=== PATIENT | female | born 1930 | race Caucasian/White ===

== ENCOUNTER 2016-11-15 12:11 | Inpatient (IN) | payer OTHER, BC ==
[2016-11-15 12:35] VITALS: BMI 32.4
[2016-11-15 12:55] LABS: MCH 29.5 pg (25.7-33.7); MCHC 32.3 g/dl (32.0-36.0); MEAN CELL VOLUME 91.5 fl (80-96); MEAN PLT VOLUME 7.6 fl (7.5-11.1); PLATELET COUNT 280 K/MM3 (134-434); RDW 15.3 % (11.6-15.6); WHITE BLOOD COUNT 17.4 K/mm3 (4.0-10.0)
--- NOTE | 2016-11-15 13:14 | PDOC ---
[id number] No Limitations - History of Present Illness Initial Comments: 11/15/16 13:41 The patient is an 86-year-old female, with a significant past medical history of afib, CHF, HTN, and diabetes mellitus, who was sent to the ED by PCP with shortness of breath today. Pt states that she visited Dr. Diggs today for viral symptoms. Pt reports cough. PCP: Dr. Diggs <Carmelina Jeffries - Last Filed: 11/15/16 13:41> <Donna Fernandez - Last Filed: 11/15/16 20:26> - General Chief Complaint: Shortness of Breath Stated Complaint: SHORTNESS OF BREATH Time Seen by Provider: 11/15/16 13:10 Past History <Carmelina Jeffries - Last Filed: 11/15/16 13:41> - Past Medical History Anemia: No Asthma: No Cancer: No Cardiac Disorders: Yes (atrial fibrillation, ASHD) CVA: Yes (03/2015) COPD: No CHF: Yes Dementia: No Diabetes: Yes (IDDM) GI Disorders: Yes (Diverticulosis, colon polyp, Pancreatic neoplasm) Disorders: No HTN: Yes Hypercholesterolemia: Yes Liver Disease: Yes (Fatty Liver) Suicide Attempt (Hx): No Seizures: No Thyroid Disease: No Other medical history: OP, carpal tunnel, glaucoma, psoriasis, lung mass, - Surgical History Appendectomy: No Cardiac Surgery: No Cholecystectomy: No Lung Surgery: No Neurologic Surgery: No Orthopedic Surgery: No - Immunization History Immunization Up to Date: No - Psycho/Social/Smoking Cessation Hx Anxiety: No Suicidal Ideation: No Smoking History: Never smoked Have you smoked in the past 12 months: No Number of Cigarettes Smoked Daily: 0 Hx Alcohol Use: No Drug/Substance Use Hx: No Substance Use Type: None Hx Substance Use Treatment: No <Donna Fernandez - Last Filed: 11/15/16 20:26> - Past Medical History Allergies/Adverse Reactions: Allergies Allergy/AdvReac Type Severity Reaction Status Date / Time clindamycin Allergy Verified 11/15/16 12:27 Home Medications: Ambulatory Orders Digoxin [Lanoxin -] 0.125 mg PO DAILY 12/12/15 Furosemide [Lasix -] 40 mg PO DAILY 12/12/15 Insulin Glargine,Hum.rec.anlog [Lantus (10mL VIAL) -] 24 units SQ AM 05/10/16 Insulin Lispro [Humalog] 0 unit SQ ASDIR PRN 12/12/15 Labetalol HCl 100 mg PO BID 12/12/15 Losartan Potassium 100 mg PO DAILY 12/12/15 Metformin HCl [Glucophage -] 500 mg PO BID 12/12/15 Potassium Chloride 20 meq PO DAILY 12/12/15 Timolol 0.25% [Timoptic 0.25%] 5 ml OD DAILY 12/12/15 Verapamil HCl [Verapamil ER] 180 mg PO TID 12/12/15 Warfarin Sodium [Coumadin] 0 mg PO DAILY 12/12/15 Acetaminophen [Tylenol .Regular Strength -] 650 mg PO Q4H PRN #0 tablet Review of Systems - Review of Systems Able to Perform ROS?: Yes Comments:: 11/15/16 13:42 GENERAL/CONSTITUTIONAL: No fever or chills. No weakness. HEAD, EYES, EARS, NOSE AND THROAT: No change in vision. No ear pain or discharge. No sore throat. CARDIOVASCULAR: No chest pain. (+)shortness of breath RESPIRATORY: No wheezing, or hemoptysis. (+)cough GASTROINTESTINAL: No nausea, vomiting, diarrhea or constipation. GENITOURINARY: No dysuria, frequency, or change in urination. MUSCULOSKELETAL: No joint or muscle swelling or pain. No neck or back pain. SKIN: No rash NEUROLOGIC: No headache, vertigo, loss of consciousness, or change in strength/ sensation. ENDOCRINE: No increased thirst. No abnormal weight change. HEMATOLOGIC/LYMPHATIC: No anemia, easy bleeding, or history of blood clots. ALLERGIC/IMMUNOLOGIC: No hives or skin allergy. <Carmelina Jeffries - Last Filed: 11/15/16 13:41> *Physical Exam - Vital Signs Last Vital Signs Temp Pulse Resp BP Pulse Ox 98.6 F 90 20 121/75 92 L 11/15/16 12:28 11/15/16 12:28 11/15/16 12:28 11/15/16 12:28 11/15/16 12:28 <Carmelina Jeffries - Last Filed: 11/15/16 13:41> - Vital Signs Last Vital Signs Temp Pulse Resp BP Pulse Ox 98.6 F 90 20 121/75 92 L 11/15/16 12:28 11/15/16 12:28 11/15/16 12:28 11/15/16 12:28 11/15/16 12:28 - Physical Exam Comments: GENERAL: Awake, alert, and fully oriented. Appears chronically ill. HEAD: No signs of trauma EYES: PERRLA, EOMI, sclera anicteric, conjunctiva clear ENT: Auricles normal inspection, hearing grossly normal, nares patent, oropharynx clear without exudates. Moist mucosa NECK: Normal ROM, supple, no lymphadenopathy, JVD, or masses LUNGS: +Mild tachypnea. +Crackles at bases B/L. HEART: Regular rate and rhythm, normal S1 and S2, no murmurs, rubs or gallops ABDOMEN: Soft, nontender, normoactive bowel sounds. No guarding, no rebound. No masses EXTREMITIES: 3+ pitting edema to BLE. Normal range of motion. No clubbing or cyanosis. No cords, erythema, or tenderness NEUROLOGICAL: Cranial nerves II through XII grossly intact. Normal speech. Moving all extremities. SKIN: Warm, Dry, normal turgor, no rashes or lesions noted. <Donna Fernandez - Last Filed: 11/15/16 20:26> ED Treatment Course - LABORATORY CBC & Chemistry Diagram: 11/15/16 12:50 11/15/16 12:50 - ADDITIONAL ORDERS Additional order review: 11/15/16 12:50 RBC 3.64 MCV 91.5 MCHC 32.3 RDW 15.3 MPV 7.6 Neutrophils % 82.0 Lymphocytes % 5.0 L D Monocytes % 12.0 H Eosinophils % 1.0 <Carmelina Jeffrise - Last Filed: 11/15/16 13:41> - LABORATORY CBC & Chemistry Diagram: 11/15/16 12:50 11/15/16 18:00 - ADDITIONAL ORDERS Additional order review: 11/15/16 12:50 RBC 3.64 MCV 91.5 MCHC 32.3 RDW 15.3 MPV 7.6 Neutrophils % Y Lymphocytes % Y - RADIOLOGY Radiology Studies Ordered: Category Date Time Status CHEST X-RAY PORTABLE* [RAD] Stat Radiology 11/15/16 12:43 Ordered <Donna Fernandez - Last Filed: 11/15/16 20:26> Medical Decision Making - Medical Decision Making Patient is poor historian, presenting with SOB. She attributes it to viral illness that her aides recently had. She was sent by Dr. Diggs for further evaluation. On evaluation, she appears fluid-overloaded with mild tachypnea, significant lower extremity edema. Also with +UA, hyperkalemia (in absence of renal failure- she is on potassium supplements, of note). No peaked T waves on EKG, but she does have chronic lateral ST depressions. Will diurese with lasix, give insulin for hyperglycemia (and hyperkalemia), give abx for UTI. D/w Dr. Fernández, will admit. <Donna Fernandez - Last Filed: 11/15/16 20:26> *DC/Admit/Observation/Transfer - Attestations Scribe Attestion: 11/15/16 13:44 Documentation prepared by Carmelina Jeffries, acting as medical sales representative for Donna Fernandez MD. <Carmelina Jeffries - Last Filed: 11/15/16 13:41> - Discharge Dispostion Admit: Yes <Donna Fernandez - Last Filed: 11/15/16 20:26> Diagnosis at time of Disposition: Hyperkalemia, Hyperglycemia CHF (congestive heart failure) Qualifiers: Congestive heart failure type: unspecified congestive heart failure type Congestive heart failure chronicity: acute on chronic Qualified Code(s): I50.9 - Heart failure, unspecified - Discharge Dispostion Condition at time of disposition: Guarded - Referrals
[2016-11-15 13:24] LABS: ALBUMIN 2.7 g/dl (3.4-5.0); ANION GAP 8 (8-16); BILIRUBIN,TOTAL 0.9 mg/dL (0.2-1.0); CALCIUM 8.8 mg/dL (8.5-10.1); CO2 26 mmol/L (21-32); COCKROFT - GAULT 40.7405; CREATININE 1.2 mg/dL (0.55-1.02); PLATELET ESTIMATE ADEQUATE (NORMAL); SGOT/AST 19 U/L (15-37); SGPT/ALT 22 U/L (12-78); TOT PROT 6.7 g/dl (6.4-8.2)
[2016-11-15 13:36] LABS: ALK PHOS 96 U/L (45-117); TROPONIN I < 0.02 ng/ml (0.00-0.05)
[2016-11-15 13:46] LABS: GLUCOSE,RANDOM 463 mg/dL (74-106)
[2016-11-15] MEDS ORDERED: INSULIN REGULAR HUMAN 100 UNITS/ML *VIAL SQ ONE (13:55)
[2016-11-15] MEDS ORDERED: INSULIN REGULAR HUMAN 100 UNITS/ML *VIAL ONE (14:00)
[2016-11-15 14:42] LABS: URINE APPEARANCE CLEAR; URINE BILIRUBIN NEGATIVE (NEGATIVE); URINE BLOOD 1+ (NEGATIVE); URINE COLOR YELLOW; URINE GLUCOSE (UA) 3+ (NEGATIVE); URINE KETONE TRACE (NEGATIVE); URINE LEUK ESTERASE TRACE (NEGATIVE); URINE NITRITE POSITIVE (NEGATIVE); URINE PROTEIN 1+ (NEGATIVE); URINE UROBILINOGEN NEGATIVE E.U./dl (0.2-1.0)
[2016-11-15 14:51] LABS: URINE BACTERIA MANY /hpf (NONE SEEN); URINE HYALINE CAST 2 /lpf; URINE MUCUS MANY; URINE RBC 1 /hpf (0-3); URINE WBC 13 /hpf (3-5)
[2016-11-15] MEDS ORDERED: FUROSEMIDE 40 MG/4 ML INJECTABLE VIAL IVPUSH ONE (14:52)
[2016-11-15] MEDS ORDERED: CEFTRIAXONE 1 GM in DEXTROSE 5%-WATER - 50 ML IVPB ONE (14:52)
[2016-11-15] MEDS ORDERED: FUROSEMIDE 40 MG/4 ML INJECTABLE VIAL ONE (15:08)
[2016-11-15] MEDS ORDERED: CEFTRIAXONE 50 ML ONE (15:08)
[2016-11-15 15:27] LABS: ACETONE SERUM NEGATIVE (NEGATIVE)
--- NOTE | 2016-11-15 15:36 | HP ---
Admitting History and Physical - Primary Care Physician PCP: Tung Diggs - Admission Chief Complaint: I was miserable History of Present Illness: Ms Flores is a pleasant 86 year old female who was sent in by Dr Diggs for shortness of breath and edema. Patient has mild dementia so history is somewhat tangential. She says her aides have a virus and gave it to her. She says she has a dry cough and is sometimes short of breath. She notes that she is wheezing. She denies fevers, chest pain, nausea, vomiting, diarrhea, dysuria, or rash. Unfortunately I cannot obtain further history as she becomes tangential and mainly talks about her aides at home and how she expected her medications to be changed as an outpatient. History Source: Patient Limitations to Obtaining History: Clinical Condition - Past Medical History Cardiovascular: Yes: AFIB, CHF, HTN Endocrine: Yes: Diabetes Mellitus - Past Surgical History Past Surgical History: Yes: Hysterectomy - Smoking History Smoking history: Never smoked Have you smoked in the past 12 months: No Aproximately how many cigarettes per day: 0 - Alcohol/Substance Use Hx Alcohol Use: No History of Substance Use: reports: None - Social History Usual Living Arrangement: Yes: Alone 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 Children do not live locally.) History of Recent Travel: No Home Medications - Allergies Allergies/Adverse Reactions: Allergies Allergy/AdvReac Type Severity Reaction Status Date / Time clindamycin Allergy Verified 11/15/16 12:27 - Home Medications Home Medications: Ambulatory Orders Digoxin [Lanoxin -] 0.125 mg PO DAILY 12/12/15 Furosemide [Lasix -] 40 mg PO DAILY 12/12/15 Insulin Glargine,Hum.rec.anlog [Lantus (10mL VIAL) -] 24 units SQ AM 12/12/15 Insulin Lispro [Humalog] 0 unit SQ ASDIR PRN 12/12/15 Labetalol HCl 100 mg PO BID 12/12/15 Losartan Potassium 100 mg PO DAILY 12/12/15 Metformin HCl [Glucophage -] 500 mg PO BID 12/12/15 Potassium Chloride 20 meq PO DAILY 12/12/15 Timolol 0.25% [Timoptic 0.25%] 5 ml OD DAILY 12/12/15 Verapamil HCl [Verapamil ER] 180 mg PO TID 12/12/15 Warfarin Sodium [Coumadin] 0 mg PO DAILY 12/12/15 Acetaminophen [Tylenol .Regular Strength -] 650 mg PO Q4H PRN #0 tablet Family Disease History - Family Disease History Family Disease History: Heart Disease: Father, Other: Mother (TIAs, lived to 90) Review of Systems Findings/Remarks: Full review of systems attempted and documented in the HPI Physical Examination Vital Signs: Vital Signs Temperature 98.6 F 11/15/16 12:28 Pulse Rate 100 H 11/15/16 13:13 Respiratory Rate 20 11/15/16 12:28 Blood Pressure 121/75 11/15/16 12:28 O2 Sat by Pulse Oximetry (%) 99 11/15/16 13:13 Constitutional: Yes: Well Nourished, No Distress, Calm Eyes: Yes: Conjunctiva Clear, EOM Intact HENT: Yes: Atraumatic, Normocephalic Cardiovascular: Yes: Regular Rate and Rhythm, Murmur. No: Gallop, Rub Respiratory: Yes: Regular, CTA Bilaterally, Cough (dry). No: Rales, Rhonchi, Wheezes Gastrointestinal: Yes: Normal Bowel Sounds, Soft. No: Distention, Tenderness Extremities: Yes: WNL Edema: Yes Edema: LLE: 1+, RLE: 1+ Labs: Laboratory Results - last 24 hr 11/15/16 11/15/16 11/15/16 12:50 12:50 14:00 WBC 17.4 H D RBC 3.64 Hgb 10.7 Hct 33.3 MCV 91.5 MCHC 32.3 RDW 15.3 Plt Count 280 MPV 7.6 Neutrophils % 82.0 Lymphocytes % 5.0 L D Monocytes % 12.0 H Eosinophils % 1.0 Differential Comment Manual diff done Platelet Estimate Adequate Sodium 129 L Potassium 6.3 H* D 5.9 H Chloride 95 L Carbon Dioxide 26 Anion Gap 8 BUN 17 D Creatinine 1.2 H D Creat Clearance w eGFR 42.70 Random Glucose 463 H* D Calcium 8.8 Total Bilirubin 0.9 D AST 19 ALT 22 Alkaline Phosphatase 96 D Creatine Kinase 64 Troponin I < 0.02 B-Natriuretic Peptide 3237.41 H Total Protein 6.7 Albumin 2.7 L Urine Color Urine Appearance Urine pH Ur Specific [place] Urine Protein Urine Glucose (UA) Urine Ketones Urine Blood Urine Nitrite Urine Bilirubin Urine Urobilinogen Ur Leukocyte Esterase Urine RBC Urine WBC Ur Epithelial Cells Urine Bacteria Hyaline Casts Urine Mucus Digoxin 2.0475 H Acetone, Qual Negative L 11/15/16 14:20 WBC RBC Hgb Hct MCV MCHC RDW Plt Count MPV Neutrophils % Lymphocytes % Monocytes % Eosinophils % Differential Comment Platelet Estimate Sodium Potassium Chloride Carbon Dioxide Anion Gap BUN Creatinine Creat Clearance w eGFR Random Glucose Calcium Total Bilirubin AST ALT Alkaline Phosphatase Creatine Kinase Troponin I B-Natriuretic Peptide Total Protein Albumin Urine Color Yellow Urine Appearance Clear Urine pH 5.0 D Ur Specific [place] 1.016 Urine Protein 1+ H Urine Glucose (UA) 3+ H Urine Ketones Trace H Urine Blood 1+ H Urine Nitrite Positive Urine Bilirubin Negative Urine Urobilinogen Negative Ur Leukocyte Esterase Trace H D Urine RBC 1 Urine WBC 13 Ur Epithelial Cells Rare Urine Bacteria Many Hyaline Casts 2 Urine Mucus Many Digoxin Acetone, Qual Imaging - Results Chest X-ray: Report Reviewed, Image Reviewed EKG: Image Reviewed Problem List - Problems (1) Sepsis Code(s): A41.9 - SEPSIS, UNSPECIFIED ORGANISM (2) UTI (urinary tract infection) Assessment/Plan: -found to have a UTI on urinalysis -admit to the hospital -given rocephin, will continue -urine and blood cultures ordered -will not hydrated because appears overloaded Code(s): N39.0 - URINARY TRACT INFECTION, SITE NOT SPECIFIED Qualifiers: Urinary tract infection type: site unspecified Hematuria presence: without hematuria Qualified Code(s): N39.0 - Urinary tract infection, site not specified (3) CHF (congestive heart failure) Assessment/Plan: -admit to telemetry -give lasix 40mg IV daily -cardiology consult Code(s): I50.9 - HEART FAILURE, UNSPECIFIED Qualifiers: Congestive heart failure type: unspecified congestive heart failure type Congestive heart failure chronicity: acute on chronic Qualified Code(s): I50.9 - Heart failure, unspecified (4) Atrial fibrillation Assessment/Plan: -rate controlled -continue home regimen -continue coumadin -follow INR Code(s): I48.91 - UNSPECIFIED ATRIAL FIBRILLATION (5) Diabetes Assessment/Plan: -with hyperglycemia -given insulin in the ED -start on FSBS and SSI -continue home regimen, may need adjustment -glucose may be elevated secondary to stress from sepsis Code(s): E11.9 - TYPE 2 DIABETES MELLITUS WITHOUT COMPLICATIONS (6) HTN (hypertension) Assessment/Plan: -continue home regimen -monitor Code(s): I10 - ESSENTIAL (PRIMARY) HYPERTENSION (7) Metabolic encephalopathy Assessment/Plan: -secondary to infection -treat underlying sepsis -monitor for improvement Code(s): G93.41 - METABOLIC ENCEPHALOPATHY (8) Hyperkalemia Assessment/Plan: -nephrology consulted and managing Code(s): E87.5 - HYPERKALEMIA
[2016-11-15] MEDS ORDERED: ONDANSETRON 4 MG/2 ML VIAL IVPB PRN (15:43)
[2016-11-15 18:09] LABS: INR 2.08 (0.82-1.09); PROTHROMBIN TIME (PATIENT) 23.2 SEC (9.98-11.88)
--- NOTE | 2016-11-15 18:50 | CON.CARD ---
Cardiology Consult (text) - Consultation Consultation Note: Unable to see patient, patient off the floor. Will evaluate tomorrow.
[2016-11-15 19:01] LABS: CALCIUM 9.6 mg/dL (8.5-10.1); COCKROFT - GAULT 40.7405; CREATININE 1.2 mg/dL (0.55-1.02)
--- NOTE | 2016-11-15 19:16 | CONSULT ---
Consult Consult Specialty:: Nephrology Reason for Consultation:: hyperkalemia - History of Present Illness Chief Complaint: shortness of breath History of Present Illness: Pt is an 86 year old female with pmhx of a-fib, CHF, DM, and HTN who presents to the ER complaining of shortness of breath. She also complains of lower extremity edema. She does complain of a cough. She was found to have elevated potassium and I was called to evaluate her. She denies chest pain or palpitations. She is on an arb and on potassium supplements at home. She denies dysuria or hematuria. She id a poor historian. - History Source History Provided By: Patient, Medical Record - Past Medical History Cardio/Vascular: Yes: AFIB, CHF, HTN Endocrine: Yes: Diabetes Mellitus - Past Surgical History Past Surgical History: Yes: Hysterectomy - Alcohol/Substance Use Hx Alcohol Use: No History of Substance Use: reports: None - Smoking History Smoking history: Never smoked Have you smoked in the past 12 months: No Aproximately how many cigarettes per day: 0 - Social History 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 Children do not live locally.) History of Recent Travel: No Home Medications - Allergies Allergies/Adverse Reactions: Allergies Allergy/AdvReac Type Severity Reaction Status Date / Time clindamycin Allergy Verified 11/15/16 12:27 - Home Medications Home Medications: Ambulatory Orders Digoxin [Lanoxin -] 0.125 mg PO DAILY 12/12/15 Furosemide [Lasix -] 40 mg PO DAILY 12/12/15 Insulin Glargine,Hum.rec.anlog [Lantus (10mL VIAL) -] 24 units SQ AM 12/12/15 Insulin Lispro [Humalog] 0 unit SQ ASDIR PRN 12/12/15 Labetalol HCl 100 mg PO BID 12/12/15 Losartan Potassium 100 mg PO DAILY 12/12/15 Metformin HCl [Glucophage -] 500 mg PO BID 12/12/15 Potassium Chloride 20 meq PO DAILY 12/12/15 Timolol 0.25% [Timoptic 0.25%] 5 ml OD DAILY 12/12/15 Verapamil HCl [Verapamil ER] 180 mg PO TID 12/12/15 Warfarin Sodium [Coumadin] 0 mg PO DAILY 12/12/15 Acetaminophen [Tylenol .Regular Strength -] 650 mg PO Q4H PRN #0 tablet Family Disease History - Family Disease History Family Disease History: Heart Disease: Father, Other: Mother (TIAs, lived to 90) Review of Systems - Review of Systems Constitutional: reports: Chills, Malaise Eyes: reports: No Symptoms HENT: reports: No Symptoms Neck: reports: No Symptoms Cardiovascular: reports: Shortness of Breath Respiratory: reports: Cough, SOB, SOB on Exertion Gastrointestinal: reports: No Symptoms Genitourinary: reports: No Symptoms Musculoskeletal: reports: No Symptoms Integumentary: reports: No Symptoms Neurological: reports: No Symptoms Endocrine: reports: No Symptoms Physical Exam Vital Signs: Vital Signs Temperature 97.6 F 11/15/16 17:05 Pulse Rate 105 H 11/15/16 17:05 Respiratory Rate 18 11/15/16 17:05 Blood Pressure 144/91 11/15/16 17:05 O2 Sat by Pulse Oximetry (%) 98 11/15/16 17:02 Constitutional: Yes: Calm Eyes: Yes: Conjunctiva Clear HENT: Yes: Atraumatic Cardiovascular: Yes: S1, S2 Respiratory: Yes: On Nasal O2 Gastrointestinal: Yes: Soft, Abdomen, Obese Musculoskeletal: Yes: WNL Extremities: Yes: WNL Edema: No (obese) Integumentary: Yes: WNL Neurological: Yes: Oriented Psychiatric: Yes: Oriented Labs: CBC, BMP 11/15/16 18:00 Laboratory Tests 11/15/16 11/15/16 11/15/16 12:50 12:50 14:00 WBC 17.4 H D Hgb 10.7 Plt Count 280 Sodium 129 L Potassium 6.3 H* D 5.9 H Chloride 95 L Carbon Dioxide 26 Anion Gap 8 BUN Creatinine Creat Clearance w eGFR 42.70 Random Glucose 463 H* D Lactic Acid Urine Color Urine Appearance Urine pH Ur Specific [place] Urine Protein Urine Glucose (UA) Urine Ketones Urine Blood Urine Nitrite Urine Bilirubin Urine Urobilinogen Ur Leukocyte Esterase Urine RBC 11/15/16 11/15/16 11/15/16 14:20 16:45 18:00 WBC Hgb Plt Count Sodium 133 L Potassium 4.7 D Chloride 96 L Carbon Dioxide 25 Anion Gap 12 BUN 18 Creatinine 1.2 H Creat Clearance w eGFR Random Glucose 395 H* Lactic Acid 2.213 H* Urine Color Yellow Urine Appearance Clear Urine pH 5.0 D Ur Specific [place] 1.016 Urine Protein 1+ H Urine Glucose (UA) 3+ H Urine Ketones Trace H Urine Blood 1+ H Urine Nitrite Positive Urine Bilirubin Negative Urine Urobilinogen Negative Ur Leukocyte Esterase Trace H D Urine RBC 1 Imaging - Results Chest X-ray: Report Reviewed Problem List - Problems (1) Hyperglycemia Code(s): R73.9 - HYPERGLYCEMIA, UNSPECIFIED (2) Hyperkalemia Code(s): E87.5 - HYPERKALEMIA (3) Sepsis Code(s): A41.9 - SEPSIS, UNSPECIFIED ORGANISM (4) CHF (congestive heart failure) Code(s): I50.9 - HEART FAILURE, UNSPECIFIED Qualifiers: Congestive heart failure type: unspecified congestive heart failure type Congestive heart failure chronicity: acute on chronic Qualified Code(s): I50.9 - Heart failure, unspecified (5) Atrial fibrillation Code(s): I48.91 - UNSPECIFIED ATRIAL FIBRILLATION (6) Diabetes Code(s): E11.9 - TYPE 2 DIABETES MELLITUS WITHOUT COMPLICATIONS (7) HTN (hypertension) Code(s): I10 - ESSENTIAL (PRIMARY) HYPERTENSION (8) UTI (urinary tract infection) Code(s): N39.0 - URINARY TRACT INFECTION, SITE NOT SPECIFIED Qualifiers: Urinary tract infection type: site unspecified Hematuria presence: without hematuria Qualified Code(s): N39.0 - Urinary tract infection, site not specified Assessment/Plan Current Medications Generic Name Dose Route Start Last Admin Trade Name Freq PRN Reason Stop Dose Admin Acetaminophen 650 mg 11/15/16 15:43 Tylenol - PO Q4H PRN FEVER OR PAIN Digoxin 0.125 mg 11/16/16 10:00 Lanoxin - PO DAILY [facility] Furosemide 40 mg 11/16/16 10:00 Lasix Injection - IVPUSH DAILY [facility] Ceftriaxone Sodium 50 mls @ 100 mls/hr 11/16/16 10:00 Rocephin 1gm Ivpb (Pre-Docked) IVPB DAILY [facility] Insulin Aspart 1 vial 11/15/16 22:00 Novolog Vial Sliding Scale - SQ ACHS [facility] Protocol Insulin Detemir 24 units 11/16/16 07:00 Levemir Vial SQ AM [facility] Labetalol HCl 300 mg 11/15/16 22:00 Normodyne - PO BID [facility] Lactobacillus Acidophilus 1 tab 11/16/16 10:00 Bacid - PO DAILY [facility] Losartan Potassium 100 mg 11/16/16 10:00 Cozaar - PO DAILY [facility] Metformin HCl 500 mg 11/15/16 18:30 Glucophage - PO BIDAC [facility] Non-Formulary Medication 180 mg 11/15/16 22:00 Verapamil Hcl [Verapamil Er] PO TID [facility] Ondansetron HCl 4 mg 11/15/16 15:43 Zofran Injection IVPB Q6H PRN NAUSEA Pantoprazole Sodium 40 mg 11/16/16 10:00 Protonix - PO DAILY [facility] Timolol Maleate 1 drop 11/16/16 10:00 Timoptic 0.25% OD DAILY [facility] Warfarin Sodium 1 mg 11/16/16 18:00 Coumadin - PO DAILY@1800 [facility] Impression 1. hyperkalemia 2. a-fib 3. HTN 4. DM 5. CHF 6. REGINE Plan - potassium was treated medically and is improved - corrected sodium is in normal range - repeat labs in am - abx for UTI, follow up cultures - pt has a baseline creatinine of about 0.6 to 0.7 - will order kidney and bladder ultrasound - hold ARB for now - will check urine lytes for FENa - will follow Dr Desir
[2016-11-15] MEDS: metFORMIN HCL 500 MG TABLET (FP) PO SCH (20:51)
[2016-11-15] MEDS: LABETALOL HCL 100 MG TABLET (FP) PO SCH (21:52)
[2016-11-15] MEDS: VERAPAMIL HCL 180 MG E.R. TABLET (FP) PO SCH (21:52)
[2016-11-15] MEDS: INSULIN SLIDING SCALE (NOVOLOG) 1 VIAL SQ SCH (21:54)
--- NOTE | 2016-11-16 00:43 | HOSP ---
Physical Examination Vital Signs: Vital Signs Temperature 98.2 F 11/16/16 00:17 Pulse Rate 109 H 11/16/16 00:17 Respiratory Rate 18 11/16/16 00:17 Blood Pressure 123/75 11/16/16 00:17 O2 Sat by Pulse Oximetry (%) 98 11/15/16 17:02 Labs: CBC, BMP 11/15/16 18:00
--- NOTE | 2016-11-16 01:16 | FALL ---
Fall Exam - Event Witnessed fall: No Location of Fall: Patient Room Fall from: Bed - Pre-Fall Fall Risk: High Risk Mental Status: Alert (patient is known to have dementia at baseline, oriented to person and place, not time/president/condition.), Cooperative Current Medications: Current Medications Generic Name Dose Route Start Last Admin Trade Name Freq PRN Reason Stop Dose Admin Acetaminophen 650 mg 11/15/16 15:43 Tylenol - PO Q4H PRN FEVER OR PAIN Digoxin 0.125 mg 11/16/16 10:00 Lanoxin - PO DAILY [facility] Furosemide 40 mg 11/16/16 10:00 Lasix Injection - IVPUSH DAILY [facility] Ceftriaxone Sodium 50 mls @ 100 mls/hr 11/16/16 10:00 Rocephin 1gm Ivpb (Pre-Docked) IVPB DAILY [facility] Insulin Aspart 1 vial 11/15/16 22:00 11/15/16 21:54 Novolog Vial Sliding Scale - SQ 10 unit ACHS SHERYL Administration Protocol Insulin Detemir 24 units 11/16/16 07:00 Levemir Vial SQ AM [facility] Labetalol HCl 300 mg 11/15/16 22:00 11/15/16 21:52 Normodyne - PO 300 mg BID SHERYL Administration Lactobacillus Acidophilus 1 tab 11/16/16 10:00 Bacid - PO DAILY [facility] Metformin HCl 500 mg 11/15/16 18:30 11/15/16 20:51 Glucophage - PO 500 mg BIDAC SHERYL Administration Ondansetron HCl 4 mg 11/15/16 15:43 Zofran Injection IVPB Q6H PRN NAUSEA Pantoprazole Sodium 40 mg 11/16/16 10:00 Protonix - PO DAILY [facility] Timolol Maleate 1 drop 11/16/16 10:00 Timoptic 0.25% OD DAILY [facility] Verapamil HCl 180 mg 11/15/16 22:00 11/15/16 21:52 Calan Sr - PO 180 mg BID SHERYL Administration Warfarin Sodium 1 mg 11/16/16 18:00 Coumadin - PO DAILY@1800 SHERYL - Post-Fall Patient Outcome: No Injury (pt has no complaints, examined resting comfortably in bed.) Treatment: None Vital Signs: Vital Signs Temperature 98.2 F 11/16/16 00:17 Pulse Rate 109 H 11/16/16 00:17 Respiratory Rate 18 11/16/16 00:17 Blood Pressure 123/75 11/16/16 00:17 O2 Sat by Pulse Oximetry (%) 98 11/15/16 17:02 LOC Post-Fall: Unchanged, Awake, Alert Identify factors for HIGH RISK for Head Injury: Pt on anticoagulant (as per hospital protocol will recieve head CT) Critical Care Total Critical Care Time (in minutes): 35 Critical Care Statement: The care of this patient involved high complexity decision making to prevent further life threatening deterioration of the patient 's condition and/or to evalute & treat vital organ system(s) failure or risk of failure.
[2016-11-16] MEDS: INSULIN DETEMIR 100 UNITS/ML MDV SQ SCH (06:14)
[2016-11-16] MEDS: INSULIN SLIDING SCALE (NOVOLOG) 1 VIAL SQ SCH ×4 (06:14→22:04)
[2016-11-16 07:25] LABS: MCH 29.7 pg (25.7-33.7); MCHC 32.8 g/dl (32.0-36.0); MEAN CELL VOLUME 90.4 fl (80-96); MEAN PLT VOLUME 7.8 fl (7.5-11.1); PLATELET COUNT 294 K/MM3 (134-434); RDW 14.8 % (11.6-15.6); WHITE BLOOD COUNT 13.6 K/mm3 (4.0-10.0)
[2016-11-16 07:54] LABS: ALBUMIN 2.5 g/dl (3.4-5.0); BILIRUBIN,TOTAL 0.5 mg/dL (0.2-1.0); CALCIUM 8.8 mg/dL (8.5-10.1); COCKROFT - GAULT 48.8835; MAGNESIUM 1.8 mg/dL (1.8-2.4); PHOSPHOROUS 3.3 mg/dL (2.5-4.9); TOT PROT 6.2 g/dl (6.4-8.2)
[2016-11-16 08:00] LABS: INR 1.86 (0.82-1.09); PROTHROMBIN TIME (PATIENT) 20.7 SEC (9.98-11.88)
[2016-11-16] MEDS: metFORMIN HCL 500 MG TABLET (FP) PO SCH ×2 (08:55→17:12)
[2016-11-16] MEDS: LABETALOL HCL 100 MG TABLET (FP) PO SCH ×3 (09:08→21:53)
[2016-11-16] MEDS: PANTOPRAZOLE 40 MG TABLET (FP) PO SCH (09:08)
[2016-11-16] MEDS: CEFTRIAXONE 50 ML IVPB SCH (09:09)
[2016-11-16] MEDS: LACTOBACILLUS ACIDOPHILUS 1 EACH TAB (FP) PO SCH (09:09)
[2016-11-16] MEDS: VERAPAMIL HCL 180 MG E.R. TABLET (FP) PO SCH (09:09)
[2016-11-16] MEDS: FUROSEMIDE 40 MG/4 ML INJECTABLE VIAL IVPUSH SCH (09:09)
--- NOTE | 2016-11-16 09:12 | PN ---
[id number] R/O SEPSIS. HAD FALL EARLY AM <> SEEN BY HOSPITALIST . PATIENT DOES NOT REMEMBER FALLING . SHE HAS NO SIGN OF INJURY . HEAD CT RESULTS PENDING.COMPLAINS OF LOWER BACK PAIN. INR LOW <> COUMADIN DOSE INCREASED . FOLLOW INR. CARDIOLOGY CONSULT WITH DR POTTS PENDING. ON IV LASIX. PRESENTED WITH HYONA++/HYPER K+ <> SEEN BY RENAL <> NOW LYDANTE NL.SUSPECTED REGINE. Selected Entries 11/16/16 11/16/16 04:56 06:00 Temperature 98.1 F Pulse Rate 110 H Respiratory 18 Rate Blood Pressure 153/78 Laboratory Tests 11/15/16 11/15/16 11/16/16 12:50 14:20 06:20 WBC 13.6 H RBC 3.35 L Hgb 10.0 L Hct 30.3 L Plt Count 294 INR Sodium Potassium Chloride Carbon Dioxide Anion Gap BUN Creatinine Creat Clearance w eGFR Random Glucose Lactic Acid Calcium Phosphorus Magnesium Total Bilirubin AST ALT Alkaline Phosphatase Total Protein Albumin Urine Color Yellow Urine Appearance Clear Urine pH 5.0 D Ur Specific [place] 1.016 Urine Protein 1+ H Urine Glucose (UA) 3+ H Urine Ketones Trace H Urine Blood 1+ H Ur Leukocyte Esterase Trace H D Digoxin 2.0475 H 11/16/16 11/16/16 11/16/16 06:20 06:20 06:20 WBC RBC Hgb Hct Plt Count INR 1.86 H Sodium 136 Potassium 3.7 D Chloride 97 L Carbon Dioxide 29 Anion Gap 10 BUN 22 H D Creatinine 1.0 Creat Clearance w eGFR 52.69 Random Glucose 242 H D Lactic Acid 1.492 Calcium 8.8 Phosphorus 3.3 Magnesium 1.8 Total Bilirubin 0.5 D AST 19 ALT 22 Alkaline Phosphatase 87 Total Protein 6.2 L Albumin 2.5 L Urine Color Urine Appearance Urine pH Ur Specific [place] Urine Protein Urine Glucose (UA) Urine Ketones Urine Blood Ur Leukocyte Esterase Digoxin P/E HEENT <> NECK SUPPLE COR S 1 S 2 IRREG CHEST <> FEW SCATTERED RHONCHI ABD ,. SOFT NONTENDER. EXT <> 1+ STASIS EDEMA. IMP : UTI / R/O SEPSIS CHF AFIB DIABETES HYPONA++ / HYPERK+ MILD DEMENTIA S/P FALL /COMPLAINS LOWER BACK PAIN. ELEVATED DIG LEVEL. LOW INR PLAN : IV LASIX PER CARDIOLOGY REPEAT DIG LEVEL <> ON LOW DOSE DIG 125 MCG. INCREASED COUMADIN 2 MG OD <> MONITOR INR. CONTINUE IV AB. CONTINUE DIABETIC MEDS ORDERED.
[2016-11-16] MEDS ORDERED: DIGOXIN 0.125 MG TABLET (FP) PO SCH (10:00)
[2016-11-16] MEDS ORDERED: LOSARTAN POTASSIUM 50 MG TABLET (FP) PO SCH (10:00)
[2016-11-16] MEDS: TIMOLOL 0.25% OPHTHALMIC SOL 5 ML BOTTLE OD SCH (11:45)
[2016-11-16 12:11] LABS: URINE CREATININE 96.2 mg/dL
--- NOTE | 2016-11-16 13:17 | CON.CARD ---
Cardiology Consult (text) - Consultation Consultation Note: CC: sob 86 yo with h/o AF on AC, HTN, uncontrolled DM, CVA, dchf/le edema, anxiety who p /w sob Recently with fatigue and significant hyperglycemia (BS 400's and a1c > 10). Progressively worsening sob, le edema. Was feeling overall unwell, but can't specify. No dizziness. No cp, palps, dizzy, loc, pnd, orthopnea. Treated for uti here. Sees dr mcgee for cardio. - Past Medical History Cardio/Vascular: Yes: AFIB, HTN ...: No Endocrine: Yes: Diabetes Mellitus - Past Surgical History Past Surgical History: Yes: Hysterectomy - Alcohol/Substance Use Hx Alcohol Use: No History of Substance Use: reports: None - Smoking History Smoking history: Never smoked Have you smoked in the past 12 months: No Aproximately how many cigarettes per day: 0 Family Disease History: Other: Mother (TIAs, lived to 90); dad mi age 65 ROS: per hpi, additionally no f/c/s, n/v/d, cough, congestion, rashes, headache , visual disturbances. Ambulatory Orders Digoxin [Lanoxin -] 0.125 mg PO DAILY 12/12/15 Furosemide [Lasix -] 40 mg PO DAILY 12/12/15 Insulin Glargine,Hum.rec.anlog [Lantus (10mL VIAL) -] 24 units SQ AM 12/12/15 Insulin Lispro [Humalog] 0 unit SQ ASDIR PRN 12/12/15 Labetalol HCl 100 mg PO BID 12/12/15 Losartan Potassium 100 mg PO DAILY 12/12/15 Metformin HCl [Glucophage -] 500 mg PO BID 12/12/15 Potassium Chloride 20 meq PO DAILY 12/12/15 Timolol 0.25% [Timoptic 0.25%] 5 ml OD DAILY 12/12/15 Verapamil HCl [Verapamil ER] 180 mg PO TID 12/12/15 Warfarin Sodium [Coumadin] 0 mg PO DAILY 12/12/15 Acetaminophen [Tylenol .Regular Strength -] 650 mg PO Q4H PRN #0 tablet Current Medications Acetaminophen (Tylenol -) 650 mg PO Q4H PRN PRN Reason: FEVER OR PAIN Digoxin (Lanoxin -) 0.125 mg PO DAILY [facility] Last Admin: 11/16/16 09:09 Dose: 0.125 mg Furosemide (Lasix Injection -) 40 mg IVPUSH DAILY [facility] Last Admin: 11/16/16 09:09 Dose: 40 mg Ceftriaxone Sodium (Rocephin 1gm Ivpb (Pre-Docked)) 50 mls @ 100 mls/hr IVPB DAILY [facility] Last Admin: 11/16/16 09:09 Dose: 100 mls/hr Insulin Aspart (Novolog Vial Sliding Scale -) 1 vial SQ ACHS [facility] PRN Reason: Protocol Last Admin: 11/16/16 11:45 Dose: 6 unit Insulin Detemir (Levemir Vial) 24 units SQ AM [facility] Last Admin: 11/16/16 06:14 Dose: 24 unit Labetalol HCl (Normodyne -) 300 mg PO BID [facility] Last Admin: 11/16/16 09:08 Dose: 300 mg Lactobacillus Acidophilus (Bacid -) 1 tab PO DAILY [facility] Last Admin: 11/16/16 09:09 Dose: 1 tab Metformin HCl (Glucophage -) 500 mg PO BIDAC [facility] Last Admin: 11/16/16 08:55 Dose: 500 mg Ondansetron HCl (Zofran Injection) 4 mg IVPB Q6H PRN PRN Reason: NAUSEA Pantoprazole Sodium (Protonix -) 40 mg PO DAILY [facility] Last Admin: 11/16/16 09:08 Dose: 40 mg Timolol Maleate (Timoptic 0.25%) 1 drop OD DAILY [facility] Last Admin: 11/16/16 11:45 Dose: 1 drop Verapamil HCl (Calan Sr -) 180 mg PO BID [facility] Last Admin: 11/16/16 09:09 Dose: 180 mg Warfarin Sodium (Coumadin -) 2 mg PO DAILY@1800 [facility] Vital Signs - 24 hr 11/15/16 11/15/16 11/15/16 13:13 15:42 17:02 Temperature 97.8 F Pulse Rate 100 H 108 H Pulse Rate [ 85 Apical] Respiratory 16 16 Rate Blood Pressure 144/91 Blood Pressure 133/65 [Left Arm] O2 Sat by Pulse 99 98 98 Oximetry (%) 11/15/16 11/15/16 11/16/16 17:05 21:00 00:17 Temperature 97.6 F 98.2 F 98.2 F Pulse Rate 105 H 100 H 109 H Pulse Rate [ Apical] Respiratory 18 18 18 Rate Blood Pressure 144/91 155/88 123/75 Blood Pressure [Left Arm] O2 Sat by Pulse 96 Oximetry (%) 11/16/16 11/16/16 11/16/16 02:00 04:56 06:00 Temperature 97.9 F 98.1 F Pulse Rate 107 H 110 H Pulse Rate [ Apical] Respiratory 18 18 18 Rate Blood Pressure 138/69 153/78 Blood Pressure [Left Arm] O2 Sat by Pulse Oximetry (%) 11/16/16 11/16/16 09:09 09:13 Temperature 99 F Pulse Rate 129 H 127 H Pulse Rate [ Apical] Respiratory 22 Rate Blood Pressure 153/74 Blood Pressure [Left Arm] O2 Sat by Pulse Oximetry (%) Intake & Output 11/14/16 11/15/16 11/16/16 11/17/16 07:59 07:59 07:59 07:59 Intake Total 700 200 Balance 700 200 Weight 166 lb nad, no jvd irreg s1s2 tachycardic. 2/6 murmur at apex, no r/g bibasilar dullness nl eff aaox3 trace le edema bl, no c/c abd nt nd pos bs pos dp pt, no carotid bruit no jaundice diaphoresis CBC, BMP 11/16/16 06:20 11/16/16 06:20 Laboratory Tests 11/15/16 11/15/16 11/15/16 12:50 16:45 18:00 INR Sodium 129 L Potassium 6.3 H* D Creatinine 1.2 H D Random Glucose 463 H* D 395 H* Lactic Acid 2.213 H* Magnesium Total Bilirubin AST ALT Alkaline Phosphatase Creatine Kinase 64 Troponin I < 0.02 B-Natriuretic Peptide 3237.41 H Albumin 2.7 L Digoxin 2.0475 H 11/16/16 11/16/16 11/16/16 06:20 06:20 06:20 INR 1.86 H Sodium Potassium Creatinine Random Glucose Lactic Acid 1.492 Magnesium 1.8 Total Bilirubin 0.5 D AST 19 ALT 22 Alkaline Phosphatase 87 Creatine Kinase Troponin I B-Natriuretic Peptide Albumin 2.5 L Digoxin 11/16/16 11/17/16 16:00 08:40 INR 1.97 H Sodium Potassium Creatinine Random Glucose Lactic Acid Magnesium Total Bilirubin AST ALT Alkaline Phosphatase Creatine Kinase Troponin I B-Natriuretic Peptide Albumin Digoxin 1.8 Echo SJR 12/2015:Nl LV/RV. mod-sev MR, mod TR CXR: suboptimal. CM with LLL obscured. per report no congestion, but by my review, can't exclude. EKG: afib, vr 99 bpm. lad. anterior q waves. anterolateral STD/T wave abnormalities. Unchanged from priors. tele: initiatially rvr 140's trended down to 90's -100's. 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 - renal function improving s/p IV lasix. con't. atrial fibrillation with on Coumadin - no bleeding or transient neurologic symptoms on Coumadin. INR per pmd - rate controlled on long standing regimen (pt reluctant to change it) digoxin 0.125 mcg', verapamil 180 mg tid, labetolol 300 bid at home. Currently rate poorly controlled, but digoxin level borderline elevated. Repeat level pending. In the meanwhile, will hold verapamil dose due to interaction and increase labetolol to TID dosing. Con't to monitor . 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 - Blood pressure today reasonably controlled, adjustments as above. Hyperlipidemia, - also with hypertriglyeridemia likely from elevated blood sugars. Diabetes management per PMD (pt reluctant to make any changes). Declines statin therapy.
[2016-11-16] MEDS ORDERED: VERAPAMIL HCL 180 MG E.R. TABLET (FP) PO SCH (14:00)
--- NOTE | 2016-11-16 16:52 | PN ---
Progress Note, Physician History of Present Illness: Pt seen and examined at bedside. She feels that her breathing is much improved. She denies dysuria. - Current Medication List Current Medications: Active Medications Acetaminophen (Tylenol -) 650 mg PO Q4H PRN PRN Reason: FEVER OR PAIN Furosemide (Lasix Injection -) 40 mg IVPUSH DAILY [facility] Last Admin: 11/16/16 09:09 Dose: 40 mg Ceftriaxone Sodium (Rocephin 1gm Ivpb (Pre-Docked)) 50 mls @ 100 mls/hr IVPB DAILY [facility] Last Admin: 11/16/16 09:09 Dose: 100 mls/hr Insulin Aspart (Novolog Vial Sliding Scale -) 1 vial SQ ACHS [facility] PRN Reason: Protocol Last Admin: 11/16/16 11:45 Dose: 6 unit Insulin Detemir (Levemir Vial) 24 units SQ AM [facility] Last Admin: 11/16/16 06:14 Dose: 24 unit Labetalol HCl (Normodyne -) 300 mg PO TID [facility] Last Admin: 11/16/16 14:36 Dose: 300 mg Lactobacillus Acidophilus (Bacid -) 1 tab PO DAILY [facility] Last Admin: 11/16/16 09:09 Dose: 1 tab Metformin HCl (Glucophage -) 500 mg PO BIDAC [facility] Last Admin: 11/16/16 08:55 Dose: 500 mg Ondansetron HCl (Zofran Injection) 4 mg IVPB Q6H PRN PRN Reason: NAUSEA Pantoprazole Sodium (Protonix -) 40 mg PO DAILY [facility] Last Admin: 11/16/16 09:08 Dose: 40 mg Timolol Maleate (Timoptic 0.25%) 1 drop OD DAILY [facility] Last Admin: 11/16/16 11:45 Dose: 1 drop Warfarin Sodium (Coumadin -) 2 mg PO DAILY@1800 [facility] - Objective Vital Signs: Vital Signs Temperature 98 F 11/16/16 15:10 Pulse Rate 119 H 11/16/16 15:10 Respiratory Rate 18 11/16/16 15:10 Blood Pressure 140/80 11/16/16 15:10 O2 Sat by Pulse Oximetry (%) 96 11/15/16 21:00 Constitutional: Yes: Calm Eyes: Yes: Conjunctiva Clear HENT: Yes: Atraumatic Neck: Yes: Supple Cardiovascular: Yes: S1, S2 Respiratory: Yes: CTA Bilaterally, On Nasal O2 Gastrointestinal: Yes: Soft, Abdomen, Obese Genitourinary: Yes: WNL Musculoskeletal: Yes: WNL Edema: No Neurological: Yes: Oriented Psychiatric: Yes: Oriented Labs: CBC, BMP 11/16/16 06:20 11/16/16 06:20 INR, PTT INR 1.86 (0.82-1.09) H 11/16/16 06:20 Problem List - Problems (1) Hyperglycemia Code(s): R73.9 - HYPERGLYCEMIA, UNSPECIFIED (2) Hyperkalemia Code(s): E87.5 - HYPERKALEMIA (3) Sepsis Code(s): A41.9 - SEPSIS, UNSPECIFIED ORGANISM (4) CHF (congestive heart failure) Code(s): I50.9 - HEART FAILURE, UNSPECIFIED Qualifiers: Congestive heart failure type: unspecified congestive heart failure type Congestive heart failure chronicity: acute on chronic Qualified Code(s): I50.9 - Heart failure, unspecified (5) Atrial fibrillation Code(s): I48.91 - UNSPECIFIED ATRIAL FIBRILLATION (6) Diabetes Code(s): E11.9 - TYPE 2 DIABETES MELLITUS WITHOUT COMPLICATIONS (7) HTN (hypertension) Code(s): I10 - ESSENTIAL (PRIMARY) HYPERTENSION (8) UTI (urinary tract infection) Code(s): N39.0 - URINARY TRACT INFECTION, SITE NOT SPECIFIED Qualifiers: Urinary tract infection type: site unspecified Hematuria presence: without hematuria Qualified Code(s): N39.0 - Urinary tract infection, site not specified Assessment/Plan Current Medications Generic Name Dose Route Start Last Admin Trade Name Freq PRN Reason Stop Dose Admin Acetaminophen 650 mg 11/15/16 15:43 Tylenol - PO Q4H PRN FEVER OR PAIN Furosemide 40 mg 11/16/16 10:00 11/16/16 09:09 Lasix Injection - IVPUSH 40 mg DAILY [facility] Administration Ceftriaxone Sodium 50 mls @ 100 mls/hr 11/16/16 10:00 11/16/16 09:09 Rocephin 1gm Ivpb (Pre-Docked) IVPB 100 mls/hr DAILY [facility] Administration Insulin Aspart 1 vial 11/15/16 22:00 11/16/16 11:45 Novolog Vial Sliding Scale - SQ 6 unit ACHS [facility] Administration Protocol Insulin Detemir 24 units 11/16/16 07:00 11/16/16 06:14 Levemir Vial SQ 24 unit AM [facility] Administration Labetalol HCl 300 mg 11/16/16 14:00 11/16/16 14:36 Normodyne - PO 300 mg TID [facility] Administration Lactobacillus Acidophilus 1 tab 11/16/16 10:00 11/16/16 09:09 Bacid - PO 1 tab DAILY [facility] Administration Metformin HCl 500 mg 11/15/16 18:30 11/16/16 08:55 Glucophage - PO 500 mg BIDAC [facility] Administration Ondansetron HCl 4 mg 11/15/16 15:43 Zofran Injection IVPB Q6H PRN NAUSEA Pantoprazole Sodium 40 mg 11/16/16 10:00 11/16/16 09:08 Protonix - PO 40 mg DAILY [facility] Administration Timolol Maleate 1 drop 11/16/16 10:00 11/16/16 11:45 Timoptic 0.25% OD 1 drop DAILY [facility] Administration Warfarin Sodium 2 mg 11/16/16 18:00 Coumadin - PO DAILY@1800 [facility] Impression 1. hyperkalemia 2. a-fib 3. HTN 4. DM 5. CHF 6. REGINE Plan - renal function is improving - follow up renal ultrasound - potassium is stable - cont lasix, can switch to PO likely tomorrow - follow up urine and blood cultures, still pending - hold ARB for now - will follow Dr Desir
[2016-11-16] MEDS ORDERED: WARFARIN NA 1 MG TABLET (FP) PO SCH (18:00)
[2016-11-16] MEDS: WARFARIN NA 2 MG TABLET (UD) PO SCH (18:33)
--- NOTE | 2016-11-16 18:33 | EKG ---
Test Reason : Blood Pressure : / mmHG Vent. Rate : 099 BPM Atrial Rate : 097 BPM P-R Int : 000 ms QRS Dur : 084 ms QT Int : 316 ms P-R-T Axes : 000 -31 135 degrees QTc Int : 405 ms ATRIAL FIBRILLATION LEFT AXIS DEVIATION ANTERIOR INFARCT (CITED ON OR BEFORE 07-OCT-2006) ABNORMAL ECG WHEN COMPARED WITH ECG OF 12-DEC-2015 13:34, NO SIGNIFICANT CHANGE WAS FOUND Confirmed by SUKHWINDER RESENDIZ, CECILIA ([id number]) on 11/16/2016 6:32:53 PM Referred By: Confirmed By:CECILIA PRETTY MD
[2016-11-16] MEDS: ACETAMINOPHEN 325 MG TABLET (FP) PO PRN (21:47)
[2016-11-17] MEDS: LABETALOL HCL 100 MG TABLET (FP) PO SCH ×3 (05:05→22:32)
[2016-11-17] MEDS: ACETAMINOPHEN 325 MG TABLET (FP) PO PRN ×2 (05:12→22:34)
[2016-11-17] MEDS: INSULIN SLIDING SCALE (NOVOLOG) 1 VIAL SQ SCH ×4 (06:49→22:34)
[2016-11-17] MEDS: INSULIN DETEMIR 100 UNITS/ML MDV SQ SCH (06:50)
[2016-11-17] MEDS: metFORMIN HCL 500 MG TABLET (FP) PO SCH ×2 (06:50→18:06)
[2016-11-17 07:23] LABS: BASOPHIL 0.3 % (0-2.0); EOSINOPHIL 1.3 % (0-4.5); MCH 28.9 pg (25.7-33.7); MCHC 31.8 g/dl (32.0-36.0); MEAN CELL VOLUME 90.7 fl (80-96); MEAN PLT VOLUME 7.6 fl (7.5-11.1); NEUTROPHILS 77.2 % (42.8-82.8); PLATELET COUNT 339 K/MM3 (134-434); WHITE BLOOD COUNT 14.1 K/mm3 (4.0-10.0)
[2016-11-17 07:34] LABS: ALBUMIN 2.3 g/dl (3.4-5.0); ANION GAP 12 (8-16); CALCIUM 8.7 mg/dL (8.5-10.1); CO2 24 mmol/L (21-32); CREATININE 0.7 mg/dL (0.55-1.02); GLUCOSE,RANDOM 220 mg/dL (74-106); SGOT/AST 33 U/L (15-37); SGPT/ALT 32 U/L (12-78)
[2016-11-17 07:37] LABS: ALK PHOS 86 U/L (45-117); BILIRUBIN,TOTAL 0.6 mg/dL (0.2-1.0); TOT PROT 5.9 g/dl (6.4-8.2)
--- NOTE | 2016-11-17 08:48 | PN ---
[id number] NEG <> ADMITTED WITH CHF , AFIB , UTI R/O SEPSIS. SEEN BY CARDIOLOGY YESTERDAY. FELT TO BE CARDIAC STABLE. LOW INR YESTERDAY. COUMADIN DOSE ADJUSTED. INR PENDING. HYPONA++/HYPER K+ RESOLVED. PATIENT SEEN BY RENAL. Selected Entries Laboratory Tests Selected Entries 11/17/16 05:26 Temperature 98.1 F Pulse Rate 133 H Respiratory 18 Rate Blood Pressure 168/90 Laboratory Tests 11/16/16 11/17/16 11/17/16 16:00 06:15 06:15 WBC 14.1 H RBC 3.44 L Hgb 9.9 L Hct 31.2 L Plt Count 339 Sodium 136 Potassium 4.3 Chloride 100 Carbon Dioxide 24 Anion Gap 12 BUN 16 D Creatinine 0.7 D Creat Clearance w eGFR > 60 POC Glucometer Random Glucose 220 H Total Bilirubin 0.6 AST 33 D ALT 32 D Alkaline Phosphatase 86 Total Protein 5.9 L Albumin 2.3 L Digoxin 1.8 11/17/16 06:47 WBC RBC Hgb Hct Plt Count Sodium Potassium Chloride Carbon Dioxide Anion Gap BUN Creatinine Creat Clearance w eGFR POC Glucometer 249 Random Glucose Total Bilirubin AST ALT Alkaline Phosphatase Total Protein Albumin Digoxin P/E HEENT <> NECK SUPPLE COR S 1 S 2 IRREG CHEST <> FEW SCATTERED RHONCHI ABD ,. SOFT NONTENDER. EXT <> 1+ STASIS EDEMA. IMP : UTI / R/O SEPSIS CHF AFIB DIABETES HYPONA++ / HYPERK+ MILD DEMENTIA S/P FALL /COMPLAINS LOWER BACK PAIN. ELEVATED DIG LEVEL. LOW INR PLAN :CONTINUE IV LASIX PER CARDIOLOGY DIG LEVEL THERAPEUTIC. CONTINUE DIG 125 MCG. INR PENDING <> COUMADIN DOSE AT 2 MG / ADJUST PER INR. CONTINUE IV AB.
[2016-11-17 09:32] LABS: INR 1.97 (0.82-1.09)
[2016-11-17] MEDS ORDERED: INSULIN (NOVOLOG) ASPART 100 UNITS/ML 10ML VIAL ONE ×2 (09:51→18:43)
[2016-11-17] MEDS: PANTOPRAZOLE 40 MG TABLET (FP) PO SCH (10:38)
[2016-11-17] MEDS: LACTOBACILLUS ACIDOPHILUS 1 EACH TAB (FP) PO SCH (10:38)
[2016-11-17] MEDS: FUROSEMIDE 40 MG/4 ML INJECTABLE VIAL IVPUSH SCH (10:38)
[2016-11-17] MEDS: CEFTRIAXONE 50 ML IVPB SCH (10:38)
[2016-11-17] MEDS: TIMOLOL 0.25% OPHTHALMIC SOL 5 ML BOTTLE OD SCH (10:39)
--- NOTE | 2016-11-17 16:09 | PN ---
Progress Note, Physician History of Present Illness: Pt seen and examined at bedside. She is awake and appears comfortable. She is out of bed to chair. - Current Medication List Current Medications: Active Medications Acetaminophen (Tylenol -) 650 mg PO Q4H PRN PRN Reason: FEVER OR PAIN Last Admin: 11/17/16 05:12 Dose: 650 mg Furosemide (Lasix Injection -) 40 mg IVPUSH DAILY [facility] Last Admin: 11/17/16 10:38 Dose: 40 mg Ceftriaxone Sodium (Rocephin 1gm Ivpb (Pre-Docked)) 50 mls @ 100 mls/hr IVPB DAILY [facility] Last Admin: 11/17/16 10:38 Dose: 100 mls/hr Insulin Aspart (Novolog Vial Sliding Scale -) 1 vial SQ ACHS [facility] PRN Reason: Protocol Last Admin: 11/17/16 11:29 Dose: 8 unit Insulin Detemir (Levemir Vial) 24 units SQ AM [facility] Last Admin: 11/17/16 06:50 Dose: 24 unit Labetalol HCl (Normodyne -) 300 mg PO TID [facility] Last Admin: 11/17/16 14:11 Dose: 300 mg Lactobacillus Acidophilus (Bacid -) 1 tab PO DAILY [facility] Last Admin: 11/17/16 10:38 Dose: 1 tab Metformin HCl (Glucophage -) 500 mg PO BIDAC [facility] Last Admin: 11/17/16 06:50 Dose: 500 mg Ondansetron HCl (Zofran Injection) 4 mg IVPB Q6H PRN PRN Reason: NAUSEA Pantoprazole Sodium (Protonix -) 40 mg PO DAILY [facility] Last Admin: 11/17/16 10:38 Dose: 40 mg Timolol Maleate (Timoptic 0.25%) 1 drop OD DAILY [facility] Last Admin: 11/17/16 10:39 Dose: 1 drop Warfarin Sodium (Coumadin -) 2 mg PO DAILY@1800 [facility] Last Admin: 11/16/16 18:33 Dose: 2 mg - Objective Vital Signs: Vital Signs Temperature 97.8 F 11/17/16 13:00 Pulse Rate 125 H 11/17/16 13:00 Respiratory Rate 19 11/17/16 13:00 Blood Pressure 123/71 11/17/16 13:00 O2 Sat by Pulse Oximetry (%) 97 11/17/16 09:00 Constitutional: Yes: Calm Eyes: Yes: Conjunctiva Clear HENT: Yes: Atraumatic Neck: Yes: Supple Cardiovascular: Yes: S1, S2 Respiratory: Yes: CTA Bilaterally Gastrointestinal: Yes: Soft, Abdomen, Obese Genitourinary: Yes: WNL Musculoskeletal: Yes: WNL Edema: No Labs: CBC, BMP 11/17/16 06:15 11/17/16 06:15 INR, PTT INR 1.97 (0.82-1.09) H 11/17/16 08:40 Problem List - Problems (1) Hyperglycemia Code(s): R73.9 - HYPERGLYCEMIA, UNSPECIFIED (2) Hyperkalemia Code(s): E87.5 - HYPERKALEMIA (3) Sepsis Code(s): A41.9 - SEPSIS, UNSPECIFIED ORGANISM (4) CHF (congestive heart failure) Code(s): I50.9 - HEART FAILURE, UNSPECIFIED Qualifiers: Congestive heart failure type: unspecified congestive heart failure type Congestive heart failure chronicity: acute on chronic Qualified Code(s): I50.9 - Heart failure, unspecified (5) Atrial fibrillation Code(s): I48.91 - UNSPECIFIED ATRIAL FIBRILLATION (6) Diabetes Code(s): E11.9 - TYPE 2 DIABETES MELLITUS WITHOUT COMPLICATIONS (7) HTN (hypertension) Code(s): I10 - ESSENTIAL (PRIMARY) HYPERTENSION (8) UTI (urinary tract infection) Code(s): N39.0 - URINARY TRACT INFECTION, SITE NOT SPECIFIED Qualifiers: Urinary tract infection type: site unspecified Hematuria presence: without hematuria Qualified Code(s): N39.0 - Urinary tract infection, site not specified Assessment/Plan Current Medications Generic Name Dose Route Start Last Admin Trade Name Freq PRN Reason Stop Dose Admin Acetaminophen 650 mg 11/15/16 15:43 11/17/16 05:12 Tylenol - PO 650 mg Q4H PRN Administration FEVER OR PAIN Furosemide 40 mg 11/16/16 10:00 11/17/16 10:38 Lasix Injection - IVPUSH 40 mg DAILY [facility] Administration Ceftriaxone Sodium 50 mls @ 100 mls/hr 11/16/16 10:00 11/17/16 10:38 Rocephin 1gm Ivpb (Pre-Docked) IVPB 100 mls/hr DAILY [facility] Administration Insulin Aspart 1 vial 11/15/16 22:00 11/17/16 11:29 Novolog Vial Sliding Scale - SQ 8 unit ACHS [facility] Administration Protocol Insulin Detemir 24 units 11/16/16 07:00 11/17/16 06:50 Levemir Vial SQ 24 unit AM [facility] Administration Labetalol HCl 300 mg 11/16/16 14:00 11/17/16 14:11 Normodyne - PO 300 mg TID [facility] Administration Lactobacillus Acidophilus 1 tab 11/16/16 10:00 11/17/16 10:38 Bacid - PO 1 tab DAILY [facility] Administration Metformin HCl 500 mg 11/15/16 18:30 11/17/16 06:50 Glucophage - PO 500 mg BIDAC [facility] Administration Ondansetron HCl 4 mg 11/15/16 15:43 Zofran Injection IVPB Q6H PRN NAUSEA Pantoprazole Sodium 40 mg 11/16/16 10:00 11/17/16 10:38 Protonix - PO 40 mg DAILY [facility] Administration Timolol Maleate 1 drop 11/16/16 10:00 11/17/16 10:39 Timoptic 0.25% OD 1 drop DAILY [facility] Administration Warfarin Sodium 2 mg 11/16/16 18:00 11/16/16 18:33 Coumadin - PO 2 mg DAILY@1800 [facility] Administration Impression 1. hyperkalemia 2. a-fib 3. HTN 4. DM 5. CHF 6. REGINE Plan - renal function has returned to baseline - can switch lasix to PO in am - will not restart potassium supplements - follow up urine cultures, blood cultures is negative to date - will restart losartan at 25 mg and titrate up as needed - monitor blood pressure - will follow Dr Desir
--- NOTE | 2016-11-17 18:05 | PN ---
Progress Note (short form) - Note Progress Note: CC: sob S: no cp, palps. sob and le edema improving. Current Medications Acetaminophen (Tylenol -) 650 mg PO Q4H PRN PRN Reason: FEVER OR PAIN Last Admin: 11/17/16 05:12 Dose: 650 mg Furosemide (Lasix Injection -) 40 mg IVPUSH DAILY [facility] Last Admin: 11/17/16 10:38 Dose: 40 mg Ceftriaxone Sodium (Rocephin 1gm Ivpb (Pre-Docked)) 50 mls @ 100 mls/hr IVPB DAILY [facility] Last Admin: 11/17/16 10:38 Dose: 100 mls/hr Insulin Aspart (Novolog Vial Sliding Scale -) 1 vial SQ ACHS [facility] PRN Reason: Protocol Last Admin: 11/17/16 11:29 Dose: 8 unit Insulin Detemir (Levemir Vial) 24 units SQ AM [facility] Last Admin: 11/17/16 06:50 Dose: 24 unit Labetalol HCl (Normodyne -) 300 mg PO TID [facility] Last Admin: 11/17/16 14:11 Dose: 300 mg Lactobacillus Acidophilus (Bacid -) 1 tab PO DAILY [facility] Last Admin: 11/17/16 10:38 Dose: 1 tab Losartan Potassium (Cozaar -) 25 mg PO DAILY [facility] Metformin HCl (Glucophage -) 500 mg PO BIDAC [facility] Last Admin: 11/17/16 06:50 Dose: 500 mg Ondansetron HCl (Zofran Injection) 4 mg IVPB Q6H PRN PRN Reason: NAUSEA Pantoprazole Sodium (Protonix -) 40 mg PO DAILY [facility] Last Admin: 11/17/16 10:38 Dose: 40 mg Timolol Maleate (Timoptic 0.25%) 1 drop OD DAILY [facility] Last Admin: 11/17/16 10:39 Dose: 1 drop Warfarin Sodium (Coumadin -) 2 mg PO DAILY@1800 [facility] Last Admin: 11/16/16 18:33 Dose: 2 mg Vital Signs - 24 hr 11/16/16 11/16/16 11/17/16 18:20 21:00 02:00 Temperature 98.5 F 98.3 F 98.1 F Pulse Rate 109 H 112 H 122 H Respiratory 18 18 18 Rate Blood Pressure 133/81 183/89 160/90 O2 Sat by Pulse 97 Oximetry (%) 11/17/16 11/17/16 11/17/16 05:26 09:00 12:05 Temperature 98.1 F 98.1 F 98.1 F Pulse Rate 133 H 120 H 120 H Respiratory 18 18 18 Rate Blood Pressure 168/90 131/90 131/90 O2 Sat by Pulse 97 Oximetry (%) 11/17/16 13:00 Temperature 97.8 F Pulse Rate 125 H Respiratory 19 Rate Blood Pressure 123/71 O2 Sat by Pulse Oximetry (%) Intake & Output 11/15/16 11/16/16 11/17/16 11/18/16 07:59 07:59 07:59 07:59 Intake Total 700 450 600 Balance 700 450 600 Weight 166 lb nad, no jvd irreg s1s2 +as murmur, no r/g bibasilar dullness nl eff aaox3 trace le edema bl, no c/c abd nt nd pos bs pos dp pt, no carotid bruit no jaundice diaphoresis CBC, BMP 11/17/16 06:15 11/17/16 06:15 Laboratory Tests 11/16/16 11/17/16 11/17/16 16:00 06:15 08:40 INR 1.97 H Total Bilirubin 0.6 AST 33 D ALT 32 D Alkaline Phosphatase 86 Albumin 2.3 L Digoxin 1.2038 Echo [facility] 12/2015:Nl LV/RV. mod-sev MR, mod TR CXR: suboptimal. CM with LLL obscured. per report no congestion, but by my review, can't exclude. EKG: afib, vr 99 bpm. lad. anterior q waves. anterolateral STD/T wave abnormalities. Unchanged from priors. tele: HR's slowly rising from 90's -100's to the 130's. 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 - renal function improving s/p IV lasix 40 mg daily. con't. atrial fibrillation with on Coumadin - no bleeding or transient neurologic symptoms on Coumadin - rate controlled on long standing regimen (pt reluctant to change it) digoxin 0.125 mcg', verapamil 180 mg tid, labetolol 300 bid at home. - 11/16: Digoxin level borderline elevated. Repeat level pending. --> held verapamil dose due to interaction and increased labetolol to TID dosing. - 11/17: Digoxin level normalized last night. Rate now uncontrolled. Will change back to home regimen of verapamil 180 mg TID and labetolol bid. Con't to hold digoxin for now. 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 - Blood pressure today reasonably controlled, adjustments as above. Hyperlipidemia, - also with hypertriglyeridemia likely from elevated blood sugars. Diabetes management per PMD (pt reluctant to make any changes). Declines statin therapy.
[2016-11-17] MEDS: WARFARIN NA 2 MG TABLET (UD) PO SCH (18:06)
[2016-11-17] MEDS: VERAPAMIL HCL 120 MG TABLET PO SCH ×2 (18:58→22:33)
[2016-11-18] MEDS: VERAPAMIL HCL 120 MG TABLET PO SCH ×3 (06:35→21:48)
[2016-11-18] MEDS: metFORMIN HCL 500 MG TABLET (FP) PO SCH ×2 (06:36→17:50)
[2016-11-18] MEDS: INSULIN DETEMIR 100 UNITS/ML MDV SQ SCH (06:37)
[2016-11-18] MEDS: INSULIN SLIDING SCALE (NOVOLOG) 1 VIAL SQ SCH ×4 (06:37→21:48)
[2016-11-18 08:50] LABS: COCKROFT - GAULT 50.1415
[2016-11-18] MEDS ORDERED: INSULIN (NOVOLOG) ASPART 100 UNITS/ML 10ML VIAL ONE (09:43)
[2016-11-18] MEDS: PANTOPRAZOLE 40 MG TABLET (FP) PO SCH (10:01)
[2016-11-18] MEDS: LABETALOL HCL 100 MG TABLET (FP) PO SCH ×2 (10:01→21:47)
[2016-11-18] MEDS: LACTOBACILLUS ACIDOPHILUS 1 EACH TAB (FP) PO SCH (10:01)
[2016-11-18] MEDS: FUROSEMIDE 40 MG/4 ML INJECTABLE VIAL IVPUSH SCH (10:01)
[2016-11-18] MEDS: CEFTRIAXONE 50 ML IVPB SCH (10:01)
[2016-11-18] MEDS: LOSARTAN POTASSIUM 25 MG TABLET PO SCH (10:01)
[2016-11-18] MEDS: TIMOLOL 0.25% OPHTHALMIC SOL 5 ML BOTTLE OD SCH (10:02)
--- NOTE | 2016-11-18 12:19 | PN ---
Progress Note, Physician History of Present Illness: Pt seen and examined at bedside. She is awake and appears comfortable. She denies shortness of breath. - Current Medication List Current Medications: Active Medications Acetaminophen (Tylenol -) 650 mg PO Q4H PRN PRN Reason: FEVER OR PAIN Last Admin: 11/17/16 22:34 Dose: 650 mg Furosemide (Lasix Injection -) 40 mg IVPUSH DAILY [facility] Last Admin: 11/18/16 10:01 Dose: 40 mg Ceftriaxone Sodium (Rocephin 1gm Ivpb (Pre-Docked)) 50 mls @ 100 mls/hr IVPB DAILY [facility] Last Admin: 11/18/16 10:01 Dose: 100 mls/hr Insulin Aspart (Novolog Vial Sliding Scale -) 1 vial SQ ACHS [facility] PRN Reason: Protocol Last Admin: 11/18/16 11:32 Dose: 6 unit Insulin Detemir (Levemir Vial) 24 units SQ AM [facility] Last Admin: 11/18/16 06:37 Dose: 24 unit Labetalol HCl (Normodyne -) 300 mg PO BID [facility] Last Admin: 11/18/16 10:01 Dose: 300 mg Lactobacillus Acidophilus (Bacid -) 1 tab PO DAILY [facility] Last Admin: 11/18/16 10:01 Dose: 1 tab Losartan Potassium (Cozaar -) 25 mg PO DAILY [facility] Last Admin: 11/18/16 10:01 Dose: 25 mg Metformin HCl (Glucophage -) 500 mg PO BIDAC [facility] Last Admin: 11/18/16 06:36 Dose: 500 mg Ondansetron HCl (Zofran Injection) 4 mg IVPB Q6H PRN PRN Reason: NAUSEA Pantoprazole Sodium (Protonix -) 40 mg PO DAILY [facility] Last Admin: 11/18/16 10:01 Dose: 40 mg Timolol Maleate (Timoptic 0.25%) 1 drop OD DAILY [facility] Last Admin: 11/18/16 10:02 Dose: 1 drop Verapamil HCl (Verapamil Hcl) 180 mg PO TID [facility] Last Admin: 11/18/16 06:35 Dose: 180 mg Warfarin Sodium (Coumadin -) 2 mg PO DAILY@1800 [facility] Last Admin: 11/17/16 18:06 Dose: 2 mg - Objective Vital Signs: Vital Signs Temperature 97.5 F L 11/18/16 09:59 Pulse Rate 81 11/18/16 09:59 Respiratory Rate 20 11/18/16 09:59 Blood Pressure 115/67 11/18/16 09:59 O2 Sat by Pulse Oximetry (%) 95 11/17/16 22:00 Constitutional: Yes: Calm Eyes: Yes: Conjunctiva Clear HENT: Yes: Atraumatic Cardiovascular: Yes: S1, S2 Respiratory: Yes: CTA Bilaterally, On Nasal O2 Gastrointestinal: Yes: Soft, Abdomen, Obese Genitourinary: Yes: WNL Musculoskeletal: Yes: WNL Edema: No Neurological: Yes: Confusion Labs: CBC, BMP 11/17/16 06:15 11/18/16 06:28 INR, PTT INR 1.97 (0.82-1.09) H 11/17/16 08:40 Problem List - Problems (1) Hyperglycemia Code(s): R73.9 - HYPERGLYCEMIA, UNSPECIFIED (2) Hyperkalemia Code(s): E87.5 - HYPERKALEMIA (3) Sepsis Code(s): A41.9 - SEPSIS, UNSPECIFIED ORGANISM (4) CHF (congestive heart failure) Code(s): I50.9 - HEART FAILURE, UNSPECIFIED Qualifiers: Congestive heart failure type: unspecified congestive heart failure type Congestive heart failure chronicity: acute on chronic Qualified Code(s): I50.9 - Heart failure, unspecified (5) Atrial fibrillation Code(s): I48.91 - UNSPECIFIED ATRIAL FIBRILLATION (6) Diabetes Code(s): E11.9 - TYPE 2 DIABETES MELLITUS WITHOUT COMPLICATIONS (7) HTN (hypertension) Code(s): I10 - ESSENTIAL (PRIMARY) HYPERTENSION (8) UTI (urinary tract infection) Code(s): N39.0 - URINARY TRACT INFECTION, SITE NOT SPECIFIED Qualifiers: Urinary tract infection type: site unspecified Hematuria presence: without hematuria Qualified Code(s): N39.0 - Urinary tract infection, site not specified Assessment/Plan Current Medications Generic Name Dose Route Start Last Admin Trade Name Freq PRN Reason Stop Dose Admin Acetaminophen 650 mg 11/15/16 15:43 11/17/16 22:34 Tylenol - PO 650 mg Q4H PRN Administration FEVER OR PAIN Furosemide 40 mg 11/16/16 10:00 11/18/16 10:01 Lasix Injection - IVPUSH 40 mg DAILY [facility] Administration Ceftriaxone Sodium 50 mls @ 100 mls/hr 11/16/16 10:00 11/18/16 10:01 Rocephin 1gm Ivpb (Pre-Docked) IVPB 100 mls/hr DAILY [facility] Administration Insulin Aspart 1 vial 11/15/16 22:00 11/18/16 11:32 Novolog Vial Sliding Scale - SQ 6 unit ACHS [facility] Administration Protocol Insulin Detemir 24 units 11/16/16 07:00 11/18/16 06:37 Levemir Vial SQ 24 unit AM [facility] Administration Labetalol HCl 300 mg 11/17/16 22:00 11/18/16 10:01 Normodyne - PO 300 mg BID [facility] Administration Lactobacillus Acidophilus 1 tab 11/16/16 10:00 11/18/16 10:01 Bacid - PO 1 tab DAILY [facility] Administration Losartan Potassium 25 mg 11/18/16 10:00 11/18/16 10:01 Cozaar - PO 25 mg DAILY [facility] Administration Metformin HCl 500 mg 11/15/16 18:30 11/18/16 06:36 Glucophage - PO 500 mg BIDAC [facility] Administration Ondansetron HCl 4 mg 11/15/16 15:43 Zofran Injection IVPB Q6H PRN NAUSEA Pantoprazole Sodium 40 mg 11/16/16 10:00 11/18/16 10:01 Protonix - PO 40 mg DAILY [facility] Administration Timolol Maleate 1 drop 11/16/16 10:00 11/18/16 10:02 Timoptic 0.25% OD 1 drop DAILY [facility] Administration Verapamil HCl 180 mg 11/17/16 18:15 11/18/16 06:35 Verapamil Hcl PO 180 mg TID [facility] Administration Warfarin Sodium 2 mg 11/16/16 18:00 11/17/16 18:06 Coumadin - PO 2 mg DAILY@1800 [facility] Administration Impression 1. hyperkalemia 2. a-fib 3. HTN 4. DM 5. CHF 6. REGINE 7. UTI Plan - will repeat labs in am - cont current meds - restarted lower dose of losartan - monitor bp - cont with lasix, switch to PO once off of oxygen - cont abx for UTI - monitor blood pressure - will follow Dr Desir
--- NOTE | 2016-11-18 15:48 | PN ---
Progress Note, Physician Chief Complaint: Ms Flores says she is feeling better today. Says her breathing is better and her swelling is improved. Denies chest pain and nausea. She complains that there is a hierarchy here and that people are trying to punish her. - Current Medication List Current Medications: Active Medications Acetaminophen (Tylenol -) 650 mg PO Q4H PRN PRN Reason: FEVER OR PAIN Last Admin: 11/17/16 22:34 Dose: 650 mg Furosemide (Lasix Injection -) 40 mg IVPUSH DAILY [facility] Last Admin: 11/18/16 10:01 Dose: 40 mg Ceftriaxone Sodium (Rocephin 1gm Ivpb (Pre-Docked)) 50 mls @ 100 mls/hr IVPB DAILY [facility] Last Admin: 11/18/16 10:01 Dose: 100 mls/hr Insulin Aspart (Novolog Vial Sliding Scale -) 1 vial SQ ACHS [facility] PRN Reason: Protocol Last Admin: 11/18/16 11:32 Dose: 6 unit Insulin Detemir (Levemir Vial) 24 units SQ AM [facility] Last Admin: 11/18/16 06:37 Dose: 24 unit Labetalol HCl (Normodyne -) 300 mg PO BID [facility] Last Admin: 11/18/16 10:01 Dose: 300 mg Lactobacillus Acidophilus (Bacid -) 1 tab PO DAILY [facility] Last Admin: 11/18/16 10:01 Dose: 1 tab Losartan Potassium (Cozaar -) 25 mg PO DAILY [facility] Last Admin: 11/18/16 10:01 Dose: 25 mg Metformin HCl (Glucophage -) 500 mg PO BIDAC [facility] Last Admin: 11/18/16 06:36 Dose: 500 mg Ondansetron HCl (Zofran Injection) 4 mg IVPB Q6H PRN PRN Reason: NAUSEA Pantoprazole Sodium (Protonix -) 40 mg PO DAILY [facility] Last Admin: 11/18/16 10:01 Dose: 40 mg Timolol Maleate (Timoptic 0.25%) 1 drop OD DAILY [facility] Last Admin: 11/18/16 10:02 Dose: 1 drop Verapamil HCl (Verapamil Hcl) 180 mg PO TID [facility] Last Admin: 11/18/16 14:08 Dose: 180 mg Warfarin Sodium (Coumadin -) 2 mg PO DAILY@1800 [facility] Last Admin: 11/17/16 18:06 Dose: 2 mg - Objective Vital Signs: Vital Signs Temperature 97.4 F L 11/18/16 14:52 Pulse Rate 101 H 11/18/16 14:52 Respiratory Rate 20 11/18/16 14:52 Blood Pressure 100/76 11/18/16 14:52 O2 Sat by Pulse Oximetry (%) 96 11/18/16 09:00 Constitutional: Yes: Well Nourished, No Distress, Calm Cardiovascular: Yes: Regular Rate and Rhythm, Murmur. No: Gallop, Rub Respiratory: Yes: Regular, CTA Bilaterally. No: Rales, Rhonchi, Wheezes Extremities: Yes: WNL Edema: No Labs: CBC, BMP 11/17/16 06:15 11/18/16 06:28 INR, PTT INR 1.97 (0.82-1.09) H 11/17/16 08:40 Problem List - Problems (1) Sepsis Code(s): A41.9 - SEPSIS, UNSPECIFIED ORGANISM (2) UTI (urinary tract infection) Code(s): N39.0 - URINARY TRACT INFECTION, SITE NOT SPECIFIED Qualifiers: Urinary tract infection type: site unspecified Hematuria presence: without hematuria Qualified Code(s): N39.0 - Urinary tract infection, site not specified (3) CHF (congestive heart failure) Code(s): I50.9 - HEART FAILURE, UNSPECIFIED Qualifiers: Congestive heart failure type: unspecified congestive heart failure type Congestive heart failure chronicity: acute on chronic Qualified Code(s ): I50.9 - Heart failure, unspecified (4) Atrial fibrillation Code(s): I48.91 - UNSPECIFIED ATRIAL FIBRILLATION (5) Diabetes Code(s): E11.9 - TYPE 2 DIABETES MELLITUS WITHOUT COMPLICATIONS (6) HTN (hypertension) Code(s): I10 - ESSENTIAL (PRIMARY) HYPERTENSION (7) Metabolic encephalopathy Code(s): G93.41 - METABOLIC ENCEPHALOPATHY (8) Hyperkalemia Code(s): E87.5 - HYPERKALEMIA Assessment/Plan (1) Sepsis -still with leukocytosis but improving -continue antibiotics Code(s): A41.9 - SEPSIS, UNSPECIFIED ORGANISM (2) UTI (urinary tract infection) Assessment/Plan: -urine culture showing e. coli -sensitive to rocephin -continue rocephin day 4 Code(s): N39.0 - URINARY TRACT INFECTION, SITE NOT SPECIFIED Qualifiers: Urinary tract infection type: site unspecified Hematuria presence: without hematuria Qualified Code(s): N39.0 - Urinary tract infection, site not specified (3) CHF (congestive heart failure) Assessment/Plan: -appreciate cardiology assistance -continue IV lasix currently Code(s): I50.9 - HEART FAILURE, UNSPECIFIED Qualifiers: Congestive heart failure type: unspecified congestive heart failure type Congestive heart failure chronicity: acute on chronic Qualified Code(s): I50.9 - Heart failure, unspecified (4) Atrial fibrillation Assessment/Plan: -rate controlled -continue home regimen -continue coumadin -follow INR Code(s): I48.91 - UNSPECIFIED ATRIAL FIBRILLATION (5) Diabetes Assessment/Plan: -not controlled, still with hyperglycemia -will change to bid levemir dosing -currently on 24 units qam, will do 15 units bid and monitor -continue metformin Code(s): E11.9 - TYPE 2 DIABETES MELLITUS WITHOUT COMPLICATIONS (6) HTN (hypertension) Assessment/Plan: -continue home regimen -monitor Code(s): I10 - ESSENTIAL (PRIMARY) HYPERTENSION (7) Metabolic encephalopathy Assessment/Plan: -suspect patient is now at baseline -however still with some inappropriate comments -? beginning of dementia -monitor Code(s): G93.41 - METABOLIC ENCEPHALOPATHY (8) Hyperkalemia Assessment/Plan: -nephrology consulted and managing
[2016-11-18] MEDS: WARFARIN NA 2 MG TABLET (UD) PO SCH (17:50)
--- NOTE | 2016-11-18 19:00 | PN ---
Progress Note (short form) - Note Progress Note: CC: sob S: no cp, palps. sob and le edema improving. Current Medications Acetaminophen (Tylenol -) 650 mg PO Q4H PRN PRN Reason: FEVER OR PAIN Last Admin: 11/17/16 22:34 Dose: 650 mg Furosemide (Lasix Injection -) 40 mg IVPUSH DAILY [facility] Last Admin: 11/18/16 10:01 Dose: 40 mg Ceftriaxone Sodium (Rocephin 1gm Ivpb (Pre-Docked)) 50 mls @ 100 mls/hr IVPB DAILY [facility] Last Admin: 11/18/16 10:01 Dose: 100 mls/hr Insulin Aspart (Novolog Vial Sliding Scale -) 1 vial SQ ACHS [facility] PRN Reason: Protocol Last Admin: 11/18/16 17:50 Dose: Not Given Insulin Detemir (Levemir Vial) 24 units SQ AM [facility] Last Admin: 11/18/16 06:37 Dose: 24 unit Labetalol HCl (Normodyne -) 300 mg PO BID [facility] Last Admin: 11/18/16 10:01 Dose: 300 mg Lactobacillus Acidophilus (Bacid -) 1 tab PO DAILY [facility] Last Admin: 11/18/16 10:01 Dose: 1 tab Losartan Potassium (Cozaar -) 25 mg PO DAILY [facility] Last Admin: 11/18/16 10:01 Dose: 25 mg Metformin HCl (Glucophage -) 500 mg PO BIDAC [facility] Last Admin: 11/18/16 17:50 Dose: 500 mg Ondansetron HCl (Zofran Injection) 4 mg IVPB Q6H PRN PRN Reason: NAUSEA Pantoprazole Sodium (Protonix -) 40 mg PO DAILY [facility] Last Admin: 11/18/16 10:01 Dose: 40 mg Timolol Maleate (Timoptic 0.25%) 1 drop OD DAILY [facility] Last Admin: 11/18/16 10:02 Dose: 1 drop Verapamil HCl (Verapamil Hcl) 180 mg PO TID [facility] Last Admin: 11/18/16 14:08 Dose: 180 mg Warfarin Sodium (Coumadin -) 2 mg PO DAILY@1800 [facility] Last Admin: 11/18/16 17:50 Dose: 2 mg Vital Signs - 24 hr 11/17/16 11/18/16 11/18/16 22:00 02:00 06:00 Temperature 98.2 F 97.3 F L 97.6 F Pulse Rate 120 H 69 109 H Respiratory 20 20 20 Rate Blood Pressure 143/93 117/51 161/83 O2 Sat by Pulse 95 Oximetry (%) 11/18/16 11/18/16 11/18/16 09:00 09:59 14:52 Temperature 97.5 F L 97.4 F L Pulse Rate 81 101 H Respiratory 20 20 20 Rate Blood Pressure 115/67 100/76 O2 Sat by Pulse 96 Oximetry (%) Intake & Output 11/16/16 11/17/16 11/18/16 11/19/16 07:59 07:59 07:59 07:59 Intake Total 700 450 760 350 Balance 700 450 760 350 Weight 166 lb 170 lb 4 oz nad, no jvd irreg s1s2 +as murmur, no r/g bibasilar dullness nl eff aaox3 trace le edema bl, no c/c abd nt nd pos bs pos dp pt, no carotid bruit no jaundice diaphoresis CBC, BMP 11/17/16 06:15 11/18/16 06:28 Echo [facility] 12/2015:Nl LV/RV. mod-sev MR, mod TR CXR: suboptimal. CM with LLL obscured. per report no congestion, but by my review, can't exclude. EKG: afib, vr 99 bpm. lad. anterior q waves. anterolateral STD/T wave abnormalities. Unchanged from priors. 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 - renal function improved s/p IV lasix 40 mg daily. con't. atrial fibrillation with on Coumadin - no bleeding or transient neurologic symptoms on Coumadin - rate controlled on long standing regimen (pt reluctant to change it) digoxin 0.125 mcg', verapamil 180 mg tid, labetolol 300 bid at home. - 11/16: Digoxin level borderline elevated. Repeat level pending. --> held verapamil dose due to interaction and increased labetolol to TID dosing. - 11/17: Digoxin level normalized last night. Rate now uncontrolled. Will change back to home regimen of verapamil 180 mg TID and labetolol bid. Con't to hold digoxin for now. - 11/18 con't same. 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 - Blood pressure today reasonably controlled on rate control meds and losartan Hyperlipidemia, - also with hypertriglyeridemia likely from elevated blood sugars. Diabetes management per PMD (pt reluctant to make any changes). Declines statin therapy.
[2016-11-18] MEDS ORDERED: PT OWN MED DRAWER 7, Y5N ONE (21:45)
[2016-11-18] MEDS: ACETAMINOPHEN 325 MG TABLET (FP) PO PRN (21:49)
[2016-11-19] MEDS: INSULIN SLIDING SCALE (NOVOLOG) 1 VIAL SQ SCH ×4 (06:19→21:31)
[2016-11-19] MEDS: VERAPAMIL HCL 120 MG TABLET PO SCH ×3 (06:19→21:29)
[2016-11-19] MEDS: INSULIN DETEMIR 100 UNITS/ML MDV SQ SCH ×3 (06:19→21:32)
[2016-11-19] MEDS: metFORMIN HCL 500 MG TABLET (FP) PO SCH ×2 (06:19→17:28)
[2016-11-19 07:42] LABS: BASOPHIL 0.7 % (0-2.0); EOSINOPHIL 2.3 % (0-4.5); MCHC 33.2 g/dl (32.0-36.0); MEAN CELL VOLUME 90.3 fl (80-96); MEAN PLT VOLUME 7.4 fl (7.5-11.1); NEUTROPHILS 72.1 % (42.8-82.8); PLATELET COUNT 421 K/MM3 (134-434); RDW 14.6 % (11.6-15.6); WHITE BLOOD COUNT 11.4 K/mm3 (4.0-10.0)
[2016-11-19 07:43] LABS: CALCIUM 9.3 mg/dL (8.5-10.1); COCKROFT - GAULT 60.8175; CREATININE 0.8 mg/dL (0.55-1.02); MAGNESIUM 1.9 mg/dL (1.8-2.4); PHOSPHOROUS 3.1 mg/dL (2.5-4.9)
[2016-11-19 08:21] LABS: INR 2.22 (0.82-1.09); PROTHROMBIN TIME (PATIENT) 24.8 SEC (9.98-11.88)
[2016-11-19] MEDS ORDERED: PT OWN MED DRAWER 7, Y5N ONE ×3 (10:02→21:21)
[2016-11-19] MEDS: LACTOBACILLUS ACIDOPHILUS 1 EACH TAB (FP) PO SCH (10:17)
[2016-11-19] MEDS: LOSARTAN POTASSIUM 25 MG TABLET PO SCH (10:18)
[2016-11-19] MEDS: CEFTRIAXONE 50 ML IVPB SCH (10:18)
[2016-11-19] MEDS: PANTOPRAZOLE 40 MG TABLET (FP) PO SCH (10:18)
[2016-11-19] MEDS: LABETALOL HCL 100 MG TABLET (FP) PO SCH ×2 (10:18→21:29)
[2016-11-19] MEDS: FUROSEMIDE 40 MG/4 ML INJECTABLE VIAL IVPUSH SCH (10:18)
[2016-11-19] MEDS: TIMOLOL 0.25% OPHTHALMIC SOL 5 ML BOTTLE OD SCH (10:19)
[2016-11-19] MEDS: ACETAMINOPHEN 325 MG TABLET (FP) PO PRN ×2 (10:33→21:29)
--- NOTE | 2016-11-19 11:54 | PN ---
Progress Note (short form) - Note Progress Note: CC: sob S: no cp, palps. sob and le edema improving. Current Medications Acetaminophen (Tylenol -) 650 mg PO Q4H PRN PRN Reason: FEVER OR PAIN Last Admin: 11/19/16 10:33 Dose: 650 mg Furosemide (Lasix Injection -) 40 mg IVPUSH DAILY [facility] Last Admin: 11/19/16 10:18 Dose: 40 mg Ceftriaxone Sodium (Rocephin 1gm Ivpb (Pre-Docked)) 50 mls @ 100 mls/hr IVPB DAILY [facility] Last Admin: 11/19/16 10:18 Dose: 100 mls/hr Insulin Aspart (Novolog Vial Sliding Scale -) 1 vial SQ ACHS [facility] PRN Reason: Protocol Last Admin: 11/19/16 06:19 Dose: Not Given Insulin Detemir (Levemir Vial) 24 units SQ AM [facility] Last Admin: 11/19/16 09:31 Dose: 24 unit Labetalol HCl (Normodyne -) 300 mg PO BID [facility] Last Admin: 11/19/16 10:18 Dose: 300 mg Lactobacillus Acidophilus (Bacid -) 1 tab PO DAILY [facility] Last Admin: 11/19/16 10:17 Dose: 1 tab Losartan Potassium (Cozaar -) 25 mg PO DAILY [facility] Last Admin: 11/19/16 10:18 Dose: 25 mg Metformin HCl (Glucophage -) 500 mg PO BIDAC [facility] Last Admin: 11/19/16 06:19 Dose: 500 mg Ondansetron HCl (Zofran Injection) 4 mg IVPB Q6H PRN PRN Reason: NAUSEA Pantoprazole Sodium (Protonix -) 40 mg PO DAILY [facility] Last Admin: 11/19/16 10:18 Dose: 40 mg Timolol Maleate (Timoptic 0.25%) 1 drop OD DAILY [facility] Last Admin: 11/19/16 10:19 Dose: 1 drop Verapamil HCl (Verapamil Hcl) 180 mg PO TID [facility] Last Admin: 11/19/16 06:19 Dose: 180 mg Warfarin Sodium (Coumadin -) 2 mg PO DAILY@1800 [facility] Last Admin: 11/18/16 17:50 Dose: 2 mg Vital Signs - 24 hr 11/18/16 11/18/16 11/19/16 14:52 22:00 02:00 Temperature 97.4 F L 98.2 F 98.1 F Pulse Rate 101 H 110 H 84 Respiratory 20 18 20 Rate Blood Pressure 100/76 160/80 144/92 O2 Sat by Pulse 95 Oximetry (%) 11/19/16 06:00 Temperature 98.1 F Pulse Rate 89 Respiratory 20 Rate Blood Pressure 140/80 O2 Sat by Pulse Oximetry (%) Intake & Output 11/17/16 11/18/16 11/19/16 11/20/16 07:59 07:59 07:59 07:59 Intake Total 450 760 830 Balance 450 760 830 Weight 170 lb 4 oz 165 lb 3.2 oz nad, no jvd irreg s1s2 +as murmur, no r/g trace bibasilar rales, nl eff aaox3 trace le edema bl, no c/c abd nt nd pos bs pos dp pt, no carotid bruit no jaundice diaphoresis CBC, BMP 11/19/16 06:00 11/19/16 06:00 Echo [facility] 12/2015:Nl LV/RV. mod-sev MR, mod TR CXR: suboptimal. CM with LLL obscured. per report no congestion, but by my review, can't exclude. EKG: afib, vr 99 bpm. lad. anterior q waves. anterolateral STD/T wave abnormalities. Unchanged from priors. tele: overall rate contorlled. 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 - renal function improved s/p IV lasix 40 mg daily. still above dry weight ( around 156 lbs), con't. atrial fibrillation with on Coumadin - no bleeding or transient neurologic symptoms on Coumadin - rate controlled on long standing regimen (pt reluctant to change it) digoxin 0.125 mcg', verapamil 180 mg tid, labetolol 300 bid at home. - 11/16: Digoxin level borderline elevated. Repeat level pending. --> held verapamil dose due to interaction and increased labetolol to TID dosing. - 11/17: Digoxin level normalized last night. Rate now uncontrolled. Will change back to home regimen of verapamil 180 mg TID and labetolol bid. Con't to hold digoxin for now. - 11/18 - 11/19 con't same. 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 - Blood pressure today reasonably controlled on rate control meds and losartan, con't Hyperlipidemia, - also with hypertriglyeridemia likely from elevated blood sugars. Diabetes management per PMD (pt reluctant to make any changes). Declines statin therapy. UTI - mgm't per pmd
--- NOTE | 2016-11-19 12:13 | PN ---
Progress Note, Physician Chief Complaint: Ms Flores says she is doing well today. No cp, sob, n/v. Reluctant to change around her medications even though her sugars run high both here and at home. - Current Medication List Current Medications: Active Medications Acetaminophen (Tylenol -) 650 mg PO Q4H PRN PRN Reason: FEVER OR PAIN Last Admin: 11/19/16 10:33 Dose: 650 mg Donepezil HCl (Aricept -) 5 mg PO DAILY [facility] Furosemide (Lasix Injection -) 40 mg IVPUSH DAILY [facility] Last Admin: 11/19/16 10:18 Dose: 40 mg Ceftriaxone Sodium (Rocephin 1gm Ivpb (Pre-Docked)) 50 mls @ 100 mls/hr IVPB DAILY [facility] Last Admin: 11/19/16 10:18 Dose: 100 mls/hr Insulin Aspart (Novolog Vial Sliding Scale -) 1 vial SQ ACHS [facility] PRN Reason: Protocol Last Admin: 11/19/16 12:00 Dose: 8 unit Insulin Detemir (Levemir Vial) 15 units SQ BID [facility] Labetalol HCl (Normodyne -) 300 mg PO BID [facility] Last Admin: 11/19/16 10:18 Dose: 300 mg Lactobacillus Acidophilus (Bacid -) 1 tab PO DAILY [facility] Last Admin: 11/19/16 10:17 Dose: 1 tab Losartan Potassium (Cozaar -) 25 mg PO DAILY [facility] Last Admin: 11/19/16 10:18 Dose: 25 mg Metformin HCl (Glucophage -) 500 mg PO BIDAC [facility] Last Admin: 11/19/16 06:19 Dose: 500 mg Ondansetron HCl (Zofran Injection) 4 mg IVPB Q6H PRN PRN Reason: NAUSEA Pantoprazole Sodium (Protonix -) 40 mg PO DAILY [facility] Last Admin: 11/19/16 10:18 Dose: 40 mg Timolol Maleate (Timoptic 0.25%) 1 drop OD DAILY [facility] Last Admin: 11/19/16 10:19 Dose: 1 drop Verapamil HCl (Verapamil Hcl) 180 mg PO TID [facility] Last Admin: 11/19/16 06:19 Dose: 180 mg Warfarin Sodium (Coumadin -) 2 mg PO DAILY@1800 [facility] Last Admin: 11/18/16 17:50 Dose: 2 mg - Objective Vital Signs: Vital Signs Temperature 98.1 F 11/19/16 06:00 Pulse Rate 89 11/19/16 06:00 Respiratory Rate 20 11/19/16 06:00 Blood Pressure 140/80 11/19/16 06:00 O2 Sat by Pulse Oximetry (%) 95 11/18/16 22:00 Constitutional: Yes: No Distress, Calm, Obese Cardiovascular: Yes: Pulse Irregular. No: Tachycardia, Gallop, Murmur, Rub Respiratory: Yes: Regular, CTA Bilaterally. No: Rales, Rhonchi, Wheezes Gastrointestinal: Yes: Normal Bowel Sounds, Soft. No: Distention, Tenderness Extremities: Yes: WNL Edema: Yes Edema: LLE: 1+, RLE: 1+ Labs: CBC, BMP 11/19/16 06:00 11/19/16 06:00 INR, PTT INR 2.22 (0.82-1.09) H 11/19/16 06:00 Problem List - Problems (1) Sepsis Code(s): A41.9 - SEPSIS, UNSPECIFIED ORGANISM (2) UTI (urinary tract infection) Code(s): N39.0 - URINARY TRACT INFECTION, SITE NOT SPECIFIED Qualifiers: Urinary tract infection type: site unspecified Hematuria presence: without hematuria Qualified Code(s): N39.0 - Urinary tract infection, site not specified (3) CHF (congestive heart failure) Code(s): I50.9 - HEART FAILURE, UNSPECIFIED Qualifiers: Congestive heart failure type: unspecified congestive heart failure type Congestive heart failure chronicity: acute on chronic Qualified Code(s ): I50.9 - Heart failure, unspecified (4) Atrial fibrillation Code(s): I48.91 - UNSPECIFIED ATRIAL FIBRILLATION (5) Diabetes Code(s): E11.9 - TYPE 2 DIABETES MELLITUS WITHOUT COMPLICATIONS (6) HTN (hypertension) Code(s): I10 - ESSENTIAL (PRIMARY) HYPERTENSION (7) Metabolic encephalopathy Code(s): G93.41 - METABOLIC ENCEPHALOPATHY (8) Hyperkalemia Code(s): E87.5 - HYPERKALEMIA Assessment/Plan (1) Sepsis -still with leukocytosis but improving -continue antibiotics Code(s): A41.9 - SEPSIS, UNSPECIFIED ORGANISM (2) UTI (urinary tract infection) Assessment/Plan: -urine culture showing e. coli -sensitive to rocephin -continue rocephin day 5 -if leukocytosis stable, possible d/c of rocephin tomorrow Code(s): N39.0 - URINARY TRACT INFECTION, SITE NOT SPECIFIED Qualifiers: Urinary tract infection type: site unspecified Hematuria presence: without hematuria Qualified Code(s): N39.0 - Urinary tract infection, site not specified (3) CHF (congestive heart failure) Assessment/Plan: -appreciate cardiology assistance -continue IV lasix currently Code(s): I50.9 - HEART FAILURE, UNSPECIFIED Qualifiers: Congestive heart failure type: unspecified congestive heart failure type Congestive heart failure chronicity: acute on chronic Qualified Code(s): I50.9 - Heart failure, unspecified (4) Atrial fibrillation Assessment/Plan: -rate controlled -continue home regimen -continue coumadin -follow INR Code(s): I48.91 - UNSPECIFIED ATRIAL FIBRILLATION (5) Diabetes Assessment/Plan: -not controlled, still with hyperglycemia -change levemir to bid dosing -continue metformin Code(s): E11.9 - TYPE 2 DIABETES MELLITUS WITHOUT COMPLICATIONS (6) HTN (hypertension) Assessment/Plan: -continue home regimen -monitor Code(s): I10 - ESSENTIAL (PRIMARY) HYPERTENSION (7) Metabolic encephalopathy Assessment/Plan: -will try low dose donepezil Code(s): G93.41 - METABOLIC ENCEPHALOPATHY (8) Hyperkalemia Assessment/Plan: -nephrology consulted and managing
--- NOTE | 2016-11-19 14:41 | PN ---
Progress Note, Physician History of Present Illness: Pt seen and examined at bedside. She appears comfortable. She denies shortness of breath. - Current Medication List Current Medications: Active Medications Acetaminophen (Tylenol -) 650 mg PO Q4H PRN PRN Reason: FEVER OR PAIN Last Admin: 11/19/16 10:33 Dose: 650 mg Donepezil HCl (Aricept -) 5 mg PO HS [facility] Furosemide (Lasix Injection -) 40 mg IVPUSH DAILY [facility] Last Admin: 11/19/16 10:18 Dose: 40 mg Ceftriaxone Sodium (Rocephin 1gm Ivpb (Pre-Docked)) 50 mls @ 100 mls/hr IVPB DAILY [facility] [place] Last Admin: 11/19/16 10:18 Dose: 100 mls/hr Insulin Aspart (Novolog Vial Sliding Scale -) 1 vial SQ ACHS [facility] PRN Reason: Protocol Last Admin: 11/19/16 12:00 Dose: 8 unit Insulin Detemir (Levemir Vial) 15 units SQ BID@0700,2200 [facility] [place] Labetalol HCl (Normodyne -) 300 mg PO BID [facility] [place] Last Admin: 11/19/16 10:18 Dose: 300 mg Lactobacillus Acidophilus (Bacid -) 1 tab PO DAILY [facility] [place] Last Admin: 11/19/16 10:17 Dose: 1 tab Losartan Potassium (Cozaar -) 25 mg PO DAILY [facility] [place] Last Admin: 11/19/16 10:18 Dose: 25 mg Metformin HCl (Glucophage -) 500 mg PO BIDAC [facility] [place] Last Admin: 11/19/16 06:19 Dose: 500 mg Ondansetron HCl (Zofran Injection) 4 mg IVPB Q6H PRN PRN Reason: NAUSEA Pantoprazole Sodium (Protonix -) 40 mg PO DAILY [facility] [place] Last Admin: 11/19/16 10:18 Dose: 40 mg Timolol Maleate (Timoptic 0.25%) 1 drop OD DAILY [facility] [place] Last Admin: 11/19/16 10:19 Dose: 1 drop Verapamil HCl (Verapamil Hcl) 180 mg PO TID [facility] [place] Last Admin: 11/19/16 14:21 Dose: 180 mg Warfarin Sodium (Coumadin -) 2 mg PO DAILY@1800 [facility] [place] Last Admin: 11/18/16 17:50 Dose: 2 mg - Objective Vital Signs: Vital Signs Temperature 98 F 11/19/16 10:00 Pulse Rate 97 H 11/19/16 10:00 Respiratory Rate 20 11/19/16 10:00 Blood Pressure 134/78 11/19/16 10:00 O2 Sat by Pulse Oximetry (%) 96 11/19/16 09:00 Constitutional: Yes: Calm Eyes: Yes: Conjunctiva Clear HENT: Yes: Atraumatic Neck: Yes: Supple Cardiovascular: Yes: S1, S2 Respiratory: Yes: CTA Bilaterally Gastrointestinal: Yes: Soft, Abdomen, Obese Genitourinary: Yes: WNL Musculoskeletal: Yes: WNL Edema: No Neurological: Yes: Oriented Psychiatric: Yes: Oriented Labs: CBC, BMP 11/19/16 06:00 11/19/16 06:00 INR, PTT INR 2.22 (0.82-1.09) H 11/19/16 06:00 Problem List - Problems (1) Hyperglycemia Code(s): R73.9 - HYPERGLYCEMIA, UNSPECIFIED (2) Hyperkalemia Code(s): E87.5 - HYPERKALEMIA (3) Sepsis Code(s): A41.9 - SEPSIS, UNSPECIFIED ORGANISM (4) CHF (congestive heart failure) Code(s): I50.9 - HEART FAILURE, UNSPECIFIED Qualifiers: Congestive heart failure type: unspecified congestive heart failure type Congestive heart failure chronicity: acute on chronic Qualified Code(s ): I50.9 - Heart failure, unspecified (5) Atrial fibrillation Code(s): I48.91 - UNSPECIFIED ATRIAL FIBRILLATION (6) Diabetes Code(s): E11.9 - TYPE 2 DIABETES MELLITUS WITHOUT COMPLICATIONS (7) HTN (hypertension) Code(s): I10 - ESSENTIAL (PRIMARY) HYPERTENSION (8) UTI (urinary tract infection) Code(s): N39.0 - URINARY TRACT INFECTION, SITE NOT SPECIFIED Qualifiers: Urinary tract infection type: site unspecified Hematuria presence: without hematuria Qualified Code(s): N39.0 - Urinary tract infection, site not specified Assessment/Plan Current Medications Generic Name Dose Route Start Last Admin Trade Name Freq PRN Reason Stop Dose Admin Acetaminophen 650 mg 11/15/16 15:43 11/19/16 10:33 Tylenol - PO 650 mg Q4H PRN Administration FEVER OR PAIN Donepezil HCl 5 mg 11/19/16 22:00 Aricept - PO HS [facility] Furosemide 40 mg 11/16/16 10:00 11/19/16 10:18 Lasix Injection - IVPUSH 40 mg DAILY [facility] Administration Ceftriaxone Sodium 50 mls @ 100 mls/hr 11/16/16 10:00 11/19/16 10:18 Rocephin 1gm Ivpb (Pre-Docked) IVPB 100 mls/hr DAILY [facility] Administration Insulin Aspart 1 vial 11/15/16 22:00 11/19/16 12:00 Novolog Vial Sliding Scale - SQ 8 unit ACHS [facility] Administration Protocol Insulin Detemir 15 units 11/19/16 22:00 Levemir Vial SQ BID@0700,2200 [facility] Labetalol HCl 300 mg 11/17/16 22:00 11/19/16 10:18 Normodyne - PO 300 mg BID [facility] Administration Lactobacillus Acidophilus 1 tab 11/16/16 10:00 11/19/16 10:17 Bacid - PO 1 tab DAILY [facility] Administration Losartan Potassium 25 mg 11/18/16 10:00 11/19/16 10:18 Cozaar - PO 25 mg DAILY [facility] Administration Metformin HCl 500 mg 11/15/16 18:30 11/19/16 06:19 Glucophage - PO 500 mg BIDAC [facility] Administration Ondansetron HCl 4 mg 11/15/16 15:43 Zofran Injection IVPB Q6H PRN NAUSEA Pantoprazole Sodium 40 mg 11/16/16 10:00 11/19/16 10:18 Protonix - PO 40 mg DAILY [facility] Administration Timolol Maleate 1 drop 11/16/16 10:00 11/19/16 10:19 Timoptic 0.25% OD 1 drop DAILY [facility] Administration Verapamil HCl 180 mg 11/17/16 18:15 11/19/16 14:21 Verapamil Hcl PO 180 mg TID [facility] Administration Warfarin Sodium 2 mg 11/16/16 18:00 11/18/16 17:50 Coumadin - PO 2 mg DAILY@1800 [facility] Administration Impression 1. hyperkalemia 2. a-fib 3. HTN 4. DM 5. CHF 6. REGINE 7. UTI Plan - renal function is stabilizing - will increase losartan dose to 50 mg - cont lasix, cardio input appreciated - cont abx for UTI - monitor blood pressure - will follow Dr Desir
[2016-11-19] MEDS: WARFARIN NA 2 MG TABLET (UD) PO SCH (17:28)
[2016-11-19] MEDS: DONEPEZIL HCL 5 MG TABLET (FP) PO SCH (21:28)
[2016-11-20] MEDS ORDERED: PT OWN MED DRAWER 7, Y5N ONE ×2 (05:59→21:15)
[2016-11-20] MEDS ORDERED: INSULIN (NOVOLOG) ASPART 100 UNITS/ML 10ML VIAL ONE ×2 (05:59→21:14)
[2016-11-20] MEDS: VERAPAMIL HCL 120 MG TABLET PO SCH ×3 (06:09→21:25)
[2016-11-20] MEDS: metFORMIN HCL 500 MG TABLET (FP) PO SCH ×2 (06:09→17:32)
[2016-11-20] MEDS: INSULIN DETEMIR 100 UNITS/ML MDV SQ SCH ×2 (06:10→21:26)
[2016-11-20] MEDS: INSULIN SLIDING SCALE (NOVOLOG) 1 VIAL SQ SCH ×4 (06:11→21:27)
[2016-11-20 07:56] LABS: BASOPHIL 0.7 % (0-2.0); EOSINOPHIL 2.3 % (0-4.5); MCH 29.8 pg (25.7-33.7); MCHC 32.9 g/dl (32.0-36.0); MEAN CELL VOLUME 90.4 fl (80-96); MEAN PLT VOLUME 7.4 fl (7.5-11.1); NEUTROPHILS 71.2 % (42.8-82.8); PLATELET COUNT 429 K/MM3 (134-434); RDW 14.5 % (11.6-15.6)
[2016-11-20 08:12] LABS: INR 2.72 (0.82-1.09); PROTHROMBIN TIME (PATIENT) 30.5 SEC (9.98-11.88)
[2016-11-20 08:30] LABS: COCKROFT - GAULT 61.659; CREATININE 0.8 mg/dL (0.55-1.02); MAGNESIUM 1.8 mg/dL (1.8-2.4); PHOSPHOROUS 3.5 mg/dL (2.5-4.9)
[2016-11-20] MEDS: CEFTRIAXONE 50 ML IVPB SCH (09:14)
[2016-11-20] MEDS: FUROSEMIDE 40 MG/4 ML INJECTABLE VIAL IVPUSH SCH (09:14)
[2016-11-20] MEDS: PANTOPRAZOLE 40 MG TABLET (FP) PO SCH (09:15)
[2016-11-20] MEDS: LOSARTAN POTASSIUM 25 MG TABLET PO SCH (09:15)
[2016-11-20] MEDS: LACTOBACILLUS ACIDOPHILUS 1 EACH TAB (FP) PO SCH (09:15)
[2016-11-20] MEDS: LABETALOL HCL 100 MG TABLET (FP) PO SCH ×2 (09:15→21:24)
[2016-11-20] MEDS: TIMOLOL 0.25% OPHTHALMIC SOL 5 ML BOTTLE OD SCH (09:15)
--- NOTE | 2016-11-20 10:57 | PN ---
Progress Note (short form) - Note Progress Note: S: no cp, palps, dizzy. sob and le edema improving. Current Medications Generic Name Dose Route Start Last Admin Trade Name Freq PRN Reason Stop Dose Admin Acetaminophen 650 mg 11/15/16 15:43 11/19/16 21:29 Tylenol - PO 650 mg Q4H PRN Administration FEVER OR PAIN Donepezil HCl 5 mg 11/19/16 22:00 11/19/16 21:28 Aricept - PO 5 mg HS [facility] Administration Furosemide 40 mg 11/16/16 10:00 11/20/16 09:14 Lasix Injection - IVPUSH 40 mg DAILY [facility] Administration Ceftriaxone Sodium 50 mls @ 100 mls/hr 11/16/16 10:00 11/20/16 09:14 Rocephin 1gm Ivpb (Pre-Docked) IVPB 100 mls/hr DAILY [facility] Administration Insulin Aspart 1 vial 11/15/16 22:00 11/20/16 06:11 Novolog Vial Sliding Scale - SQ Not Given ACHS [facility] Protocol Insulin Detemir 15 units 11/19/16 22:00 11/20/16 06:10 Levemir Vial SQ 15 units BID@0700,2200 [facility] Administration Labetalol HCl 300 mg 11/17/16 22:00 11/20/16 09:15 Normodyne - PO 300 mg BID [facility] Administration Lactobacillus Acidophilus 1 tab 11/16/16 10:00 11/20/16 09:15 Bacid - PO 1 tab DAILY [facility] Administration Losartan Potassium 50 mg 11/19/16 14:42 11/20/16 09:15 Cozaar - PO 50 mg DAILY [facility] Administration Metformin HCl 500 mg 11/15/16 18:30 11/20/16 06:09 Glucophage - PO 500 mg BIDAC [facility] Administration Ondansetron HCl 4 mg 11/15/16 15:43 Zofran Injection IVPB Q6H PRN NAUSEA Pantoprazole Sodium 40 mg 11/16/16 10:00 11/20/16 09:15 Protonix - PO 40 mg DAILY [facility] Administration Timolol Maleate 1 drop 11/16/16 10:00 11/20/16 09:15 Timoptic 0.25% OD 1 drop DAILY [facility] Administration Verapamil HCl 180 mg 11/17/16 18:15 11/20/16 06:09 Verapamil Hcl PO 180 mg TID [facility] Administration Warfarin Sodium 2 mg 11/16/16 18:00 11/19/16 17:28 Coumadin - PO 2 mg DAILY@1800 [facility] Administration Vital Signs Period Temp Pulse Resp BP Sys/[place] Pulse Ox Last 24 Hr 97.4 F-98.7 F 64-108 16-19 124-161/70-95 94 nad, no jvd irreg s1s2 +as murmur, no r/g cta bl nl eff aaox3 trace le edema bl, no c/c abd nt nd pos bs no jaundice diaphoresis CBC, BMP 11/20/16 07:00 11/20/16 07:00 Echo [facility] 12/2015:Nl LV/RV. mod-sev MR, mod TR CXR: suboptimal. CM with LLL obscured. per report no congestion, but by my review, can't exclude. EKG: afib, vr 99 bpm. lad. anterior q waves. anterolateral STD/T wave abnormalities. Unchanged from priors. 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 - renal function improved/stable s/p IV lasix 40 mg daily. still above dry weight (around 156 lbs), con't. atrial fibrillation with on Coumadin - no bleeding or transient neurologic symptoms on Coumadin - rate controlled on long standing regimen (pt reluctant to change it) digoxin 0.125 mcg', verapamil 180 mg tid, labetolol 300 bid at home. - 11/16: Digoxin level borderline elevated. Repeat level pending. --> held verapamil dose due to interaction and increased labetolol to TID dosing. - 11/17: Digoxin level normalized last night. Rate now uncontrolled. Will change back to home regimen of verapamil 180 mg TID and labetolol bid. Con't to hold digoxin for now. - 11/18 - 11/20: rate controlled, con't same. If rate remains controlled, will consider remaining off digoxin residential. 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 - Blood pressure today reasonably controlled on rate control meds and losartan, con't Hyperlipidemia, - also with hypertriglyeridemia likely from elevated blood sugars. Diabetes management per PMD (pt reluctant to make any changes). Declines statin therapy. UTI - mgm't per pmd
[2016-11-20] MEDS: ACETAMINOPHEN 325 MG TABLET (FP) PO PRN ×2 (13:03→21:28)
--- NOTE | 2016-11-20 14:11 | PN ---
Progress Note, Physician Chief Complaint: Ms Flores says she is doing well but started to have diarrhea this morning. No cp, sob, n/v. - Current Medication List Current Medications: Active Medications Acetaminophen (Tylenol -) 650 mg PO Q4H PRN PRN Reason: FEVER OR PAIN Last Admin: 11/20/16 13:03 Dose: 650 mg Donepezil HCl (Aricept -) 5 mg PO HS [facility] Last Admin: 11/19/16 21:28 Dose: 5 mg Furosemide (Lasix Injection -) 40 mg IVPUSH DAILY [facility] Last Admin: 11/20/16 09:14 Dose: 40 mg Insulin Aspart (Novolog Vial Sliding Scale -) 1 vial SQ ACHS [facility] PRN Reason: Protocol Last Admin: 11/20/16 11:32 Dose: 6 unit Insulin Detemir (Levemir Vial) 15 units SQ BID@0700,2200 [facility] Last Admin: 11/20/16 06:10 Dose: 15 units Labetalol HCl (Normodyne -) 300 mg PO BID [facility] Last Admin: 11/20/16 09:15 Dose: 300 mg Lactobacillus Acidophilus (Bacid -) 1 tab PO DAILY [facility] Last Admin: 11/20/16 09:15 Dose: 1 tab Losartan Potassium (Cozaar -) 50 mg PO DAILY [facility] Last Admin: 11/20/16 09:15 Dose: 50 mg Metformin HCl (Glucophage -) 500 mg PO BIDAC [facility] Last Admin: 11/20/16 06:09 Dose: 500 mg Ondansetron HCl (Zofran Injection) 4 mg IVPB Q6H PRN PRN Reason: NAUSEA Pantoprazole Sodium (Protonix -) 40 mg PO DAILY [facility] Last Admin: 11/20/16 09:15 Dose: 40 mg Timolol Maleate (Timoptic 0.25%) 1 drop OD DAILY [facility] Last Admin: 11/20/16 09:15 Dose: 1 drop Verapamil HCl (Verapamil Hcl) 180 mg PO TID [facility] Last Admin: 11/20/16 13:04 Dose: 180 mg Warfarin Sodium (Coumadin -) 2 mg PO DAILY@1800 [facility] Last Admin: 11/19/16 17:28 Dose: 2 mg - Objective Vital Signs: Vital Signs Temperature 97.4 F L 11/20/16 09:18 Pulse Rate 83 11/20/16 12:07 Respiratory Rate 19 11/20/16 09:18 Blood Pressure 150/80 11/20/16 09:18 O2 Sat by Pulse Oximetry (%) 92 L 11/20/16 12:07 Constitutional: Yes: Well Nourished, No Distress, Calm Cardiovascular: Yes: Pulse Irregular. No: Tachycardia, Gallop, Murmur, Rub Respiratory: Yes: Regular, CTA Bilaterally. No: Rales, Rhonchi, Wheezes Gastrointestinal: Yes: Normal Bowel Sounds, Soft. No: Distention, Tenderness Extremities: Yes: WNL Edema: LLE: Trace, RLE: Trace Labs: CBC, BMP 11/20/16 07:00 11/20/16 07:00 INR, PTT INR 2.72 (0.82-1.09) H 11/20/16 07:00 Problem List - Problems (1) Sepsis Code(s): A41.9 - SEPSIS, UNSPECIFIED ORGANISM (2) UTI (urinary tract infection) Code(s): N39.0 - URINARY TRACT INFECTION, SITE NOT SPECIFIED Qualifiers: Urinary tract infection type: site unspecified Hematuria presence: without hematuria Qualified Code(s): N39.0 - Urinary tract infection, site not specified (3) CHF (congestive heart failure) Code(s): I50.9 - HEART FAILURE, UNSPECIFIED Qualifiers: Congestive heart failure type: unspecified congestive heart failure type Congestive heart failure chronicity: acute on chronic Qualified Code(s ): I50.9 - Heart failure, unspecified (4) Atrial fibrillation Code(s): I48.91 - UNSPECIFIED ATRIAL FIBRILLATION (5) Diabetes Code(s): E11.9 - TYPE 2 DIABETES MELLITUS WITHOUT COMPLICATIONS (6) HTN (hypertension) Code(s): I10 - ESSENTIAL (PRIMARY) HYPERTENSION (7) Metabolic encephalopathy Code(s): G93.41 - METABOLIC ENCEPHALOPATHY (8) Hyperkalemia Code(s): E87.5 - HYPERKALEMIA Assessment/Plan (1) Sepsis -resolved Code(s): A41.9 - SEPSIS, UNSPECIFIED ORGANISM (2) UTI (urinary tract infection) Assessment/Plan: -urine culture showing e. coli -s/p full course rocephin Code(s): N39.0 - URINARY TRACT INFECTION, SITE NOT SPECIFIED Qualifiers: Urinary tract infection type: site unspecified Hematuria presence: without hematuria Qualified Code(s): N39.0 - Urinary tract infection, site not specified (3) CHF (congestive heart failure) Assessment/Plan: -appreciate cardiology assistance -continue IV lasix currently Code(s): I50.9 - HEART FAILURE, UNSPECIFIED Qualifiers: Congestive heart failure type: unspecified congestive heart failure type Congestive heart failure chronicity: acute on chronic Qualified Code(s): I50.9 - Heart failure, unspecified (4) Atrial fibrillation Assessment/Plan: -rate controlled -continue home regimen -continue coumadin -follow INR Code(s): I48.91 - UNSPECIFIED ATRIAL FIBRILLATION (5) Diabetes Assessment/Plan: -continue metformin -changed levemir to 15 units bid -will observe how much and when she requires extra insulin and adjust -patient admits has dietary indiscretion at home -considering age, may benefit from looser control Code(s): E11.9 - TYPE 2 DIABETES MELLITUS WITHOUT COMPLICATIONS (6) HTN (hypertension) Assessment/Plan: -continue home regimen -monitor Code(s): I10 - ESSENTIAL (PRIMARY) HYPERTENSION (7) Metabolic encephalopathy Assessment/Plan: -will try low dose donepezil Code(s): G93.41 - METABOLIC ENCEPHALOPATHY (8) Hyperkalemia Assessment/Plan: -nephrology consulted and managing (9) Diarrhea -will check stool for c. diff since received rocephin
--- NOTE | 2016-11-20 17:10 | PN ---
Progress Note, Physician History of Present Illness: Pt seen and examined at bedside. She is awake and alert. She denies shortness of breath. - Current Medication List Current Medications: Active Medications Acetaminophen (Tylenol -) 650 mg PO Q4H PRN PRN Reason: FEVER OR PAIN Last Admin: 11/20/16 13:03 Dose: 650 mg Donepezil HCl (Aricept -) 5 mg PO HS [facility] Last Admin: 11/19/16 21:28 Dose: 5 mg Furosemide (Lasix Injection -) 40 mg IVPUSH DAILY [facility] Last Admin: 11/20/16 09:14 Dose: 40 mg Insulin Aspart (Novolog Vial Sliding Scale -) 1 vial SQ ACHS [facility]ERYL PRN Reason: Protocol Last Admin: 11/20/16 11:32 Dose: 6 unit Insulin Detemir (Levemir Vial) 15 units SQ BID@0700,2200 [facility] Last Admin: 11/20/16 06:10 Dose: 15 units Labetalol HCl (Normodyne -) 300 mg PO BID [facility] Last Admin: 11/20/16 09:15 Dose: 300 mg Lactobacillus Acidophilus (Bacid -) 1 tab PO DAILY [facility] Last Admin: 11/20/16 09:15 Dose: 1 tab Losartan Potassium (Cozaar -) 50 mg PO DAILY [facility] Last Admin: 11/20/16 09:15 Dose: 50 mg Metformin HCl (Glucophage -) 500 mg PO BIDAC [facility] Last Admin: 11/20/16 06:09 Dose: 500 mg Ondansetron HCl (Zofran Injection) 4 mg IVPB Q6H PRN PRN Reason: NAUSEA Pantoprazole Sodium (Protonix -) 40 mg PO DAILY [facility] Last Admin: 11/20/16 09:15 Dose: 40 mg Timolol Maleate (Timoptic 0.25%) 1 drop OD DAILY [facility] Last Admin: 11/20/16 09:15 Dose: 1 drop Verapamil HCl (Verapamil Hcl) 180 mg PO TID [facility] Last Admin: 11/20/16 13:04 Dose: 180 mg Warfarin Sodium (Coumadin -) 2 mg PO DAILY@1800 [facility] Last Admin: 11/19/16 17:28 Dose: 2 mg - Objective Vital Signs: Vital Signs Temperature 97.8 F 11/20/16 14:26 Pulse Rate 94 H 11/20/16 14:26 Respiratory Rate 18 11/20/16 14:26 Blood Pressure 127/59 11/20/16 14:26 O2 Sat by Pulse Oximetry (%) 92 L 11/20/16 12:07 Constitutional: Yes: Calm Eyes: Yes: Conjunctiva Clear HENT: Yes: Atraumatic Neck: Yes: Supple Cardiovascular: Yes: S1, S2 Respiratory: Yes: On Nasal O2 Gastrointestinal: Yes: Normal Bowel Sounds, Soft, Abdomen, Obese Musculoskeletal: Yes: WNL Extremities: Yes: WNL Edema: No Neurological: Yes: Confusion Labs: CBC, BMP 11/20/16 07:00 11/20/16 07:00 INR, PTT INR 2.72 (0.82-1.09) H 11/20/16 07:00 Problem List - Problems (1) Hyperglycemia Code(s): R73.9 - HYPERGLYCEMIA, UNSPECIFIED (2) Hyperkalemia Code(s): E87.5 - HYPERKALEMIA (3) Sepsis Code(s): A41.9 - SEPSIS, UNSPECIFIED ORGANISM (4) CHF (congestive heart failure) Code(s): I50.9 - HEART FAILURE, UNSPECIFIED Qualifiers: Congestive heart failure type: unspecified congestive heart failure type Congestive heart failure chronicity: acute on chronic Qualified Code(s ): I50.9 - Heart failure, unspecified (5) Atrial fibrillation Code(s): I48.91 - UNSPECIFIED ATRIAL FIBRILLATION (6) Diabetes Code(s): E11.9 - TYPE 2 DIABETES MELLITUS WITHOUT COMPLICATIONS (7) HTN (hypertension) Code(s): I10 - ESSENTIAL (PRIMARY) HYPERTENSION (8) UTI (urinary tract infection) Code(s): N39.0 - URINARY TRACT INFECTION, SITE NOT SPECIFIED Qualifiers: Urinary tract infection type: site unspecified Hematuria presence: without hematuria Qualified Code(s): N39.0 - Urinary tract infection, site not specified Assessment/Plan Current Medications Generic Name Dose Route Start Last Admin Trade Name Freq PRN Reason Stop Dose Admin Acetaminophen 650 mg 11/15/16 15:43 11/20/16 13:03 Tylenol - PO 650 mg Q4H PRN Administration FEVER OR PAIN Donepezil HCl 5 mg 11/19/16 22:00 11/19/16 21:28 Aricept - PO 5 mg HS [facility]L Administration Furosemide 40 mg 11/16/16 10:00 11/20/16 09:14 Lasix Injection - IVPUSH 40 mg DAILY [facility]L Administration Insulin Aspart 1 vial 11/15/16 22:00 11/20/16 11:32 Novolog Vial Sliding Scale - SQ 6 unit ACHS SHERYL Administration Protocol Insulin Detemir 15 units 11/19/16 22:00 11/20/16 06:10 Levemir Vial SQ 15 units BID@0700,2200 [facility] Administration Labetalol HCl 300 mg 11/17/16 22:00 11/20/16 09:15 Normodyne - PO 300 mg BID [facility]ERYL Administration Lactobacillus Acidophilus 1 tab 11/16/16 10:00 11/20/16 09:15 Bacid - PO 1 tab DAILY [facility]ERYL Administration Losartan Potassium 50 mg 11/19/16 14:42 11/20/16 09:15 Cozaar - PO 50 mg DAILY [facility] Administration Metformin HCl 500 mg 11/15/16 18:30 11/20/16 06:09 Glucophage - PO 500 mg BIDAC SHERYL Administration Ondansetron HCl 4 mg 11/15/16 15:43 Zofran Injection IVPB Q6H PRN NAUSEA Pantoprazole Sodium 40 mg 11/16/16 10:00 11/20/16 09:15 Protonix - PO 40 mg DAILY [facility] Administration Timolol Maleate 1 drop 11/16/16 10:00 11/20/16 09:15 Timoptic 0.25% OD 1 drop DAILY [facility]ERYL Administration Verapamil HCl 180 mg 11/17/16 18:15 11/20/16 13:04 Verapamil Hcl PO 180 mg TID SHERYL Administration Warfarin Sodium 2 mg 11/16/16 18:00 11/19/16 17:28 Coumadin - PO 2 mg DAILY@1800 SHERYL Administration Impression 1. hyperkalemia 2. a-fib 3. HTN 4. DM 5. CHF 6. REGINE 7. UTI Plan - cont cozaar at 50 and increase to 100 mg tomorrow if bp elevated and if renal function remains stable - cont lasix - monitor bp,discussed plan with nurse - cont abx for UTI - will follow Dr Desir
[2016-11-20] MEDS: WARFARIN NA 2 MG TABLET (UD) PO SCH (17:32)
[2016-11-20] MEDS: DONEPEZIL HCL 5 MG TABLET (FP) PO SCH (21:24)
[2016-11-21] MEDS ORDERED: PT OWN MED DRAWER 7, Y5N ONE (06:22)
[2016-11-21] MEDS ORDERED: INSULIN (NOVOLOG) ASPART 100 UNITS/ML 10ML VIAL ONE ×2 (06:22→10:02)
[2016-11-21] MEDS: VERAPAMIL HCL 120 MG TABLET PO SCH ×3 (06:29→22:37)
[2016-11-21] MEDS: metFORMIN HCL 500 MG TABLET (FP) PO SCH ×2 (06:29→17:31)
[2016-11-21] MEDS: INSULIN DETEMIR 100 UNITS/ML MDV SQ SCH ×2 (06:30→22:15)
[2016-11-21] MEDS: INSULIN SLIDING SCALE (NOVOLOG) 1 VIAL SQ SCH ×4 (06:30→22:14)
[2016-11-21 07:51] LABS: BASOPHIL 0.5 % (0-2.0); EOSINOPHIL 2.8 % (0-4.5); MCH 29.3 pg (25.7-33.7); MCHC 32.2 g/dl (32.0-36.0); MEAN CELL VOLUME 90.8 fl (80-96); MEAN PLT VOLUME 7.2 fl (7.5-11.1); NEUTROPHILS 70.6 % (42.8-82.8); PLATELET COUNT 483 K/MM3 (134-434); RDW 14.8 % (11.6-15.6); WHITE BLOOD COUNT 9.7 K/mm3 (4.0-10.0)
[2016-11-21 08:07] LABS: INR 2.88 (0.82-1.09); PROTHROMBIN TIME (PATIENT) 32.4 SEC (9.98-11.88)
[2016-11-21 08:24] LABS: COCKROFT - GAULT 71.1025; CREATININE 0.7 mg/dL (0.55-1.02); MAGNESIUM 1.7 mg/dL (1.8-2.4); PHOSPHOROUS 2.8 mg/dL (2.5-4.9)
[2016-11-21] MEDS: FUROSEMIDE 40 MG/4 ML INJECTABLE VIAL IVPUSH SCH (10:00)
--- NOTE | 2016-11-21 10:19 | PN ---
Progress Note (short form) - Note Progress Note: S: no cp, palps, dizzy. sob and le edema improving. +cough Current Medications Generic Name Dose Route Start Last Admin Trade Name Freq PRN Reason Stop Dose Admin Acetaminophen 650 mg 11/15/16 15:43 11/20/16 21:28 Tylenol - PO 650 mg Q4H PRN Administration FEVER OR PAIN Donepezil HCl 5 mg 11/19/16 22:00 11/20/16 21:24 Aricept - PO 5 mg HS [facility]ERYL Administration Furosemide 40 mg 11/16/16 10:00 11/20/16 09:14 Lasix Injection - IVPUSH 11/21/16 13:00 40 mg DAILY [facility] Administration Furosemide 40 mg 11/21/16 16:00 Lasix Injection - IVPUSH 11/21/16 16:01 ONCE ONE Furosemide 40 mg 11/22/16 06:00 Lasix Injection - IVPUSH BID@0600,1400 SHERYL Insulin Aspart 1 vial 11/15/16 22:00 11/21/16 06:30 Novolog Vial Sliding Scale - SQ 2 unit ACHS SHERYL Administration Protocol Insulin Detemir 15 units 11/19/16 22:00 11/21/16 06:30 Levemir Vial SQ 15 units BID@0700,2200 [facility] Administration Labetalol HCl 300 mg 11/17/16 22:00 11/20/16 21:24 Normodyne - PO 300 mg BID [facility] Administration Lactobacillus Acidophilus 1 tab 11/16/16 10:00 11/20/16 09:15 Bacid - PO 1 tab DAILY [facility] Administration Losartan Potassium 50 mg 11/19/16 14:42 11/20/16 09:15 Cozaar - PO 50 mg DAILY [facility] Administration Metformin HCl 500 mg 11/15/16 18:30 11/21/16 06:29 Glucophage - PO 500 mg BIDAC [facility]ERYL Administration Ondansetron HCl 4 mg 11/15/16 15:43 Zofran Injection IVPB Q6H PRN NAUSEA Pantoprazole Sodium 40 mg 11/16/16 10:00 11/20/16 09:15 Protonix - PO 40 mg DAILY [facility] Administration Timolol Maleate 1 drop 11/16/16 10:00 11/20/16 09:15 Timoptic 0.25% OD 1 drop DAILY [facility] Administration Verapamil HCl 180 mg 11/17/16 18:15 11/21/16 06:29 Verapamil Hcl PO 180 mg TID SHERYL Administration Warfarin Sodium 2 mg 11/16/16 18:00 11/20/16 17:32 Coumadin - PO 2 mg DAILY@1800 [facility] Administration Vital Signs Period Temp Pulse Resp BP Sys/Lomas Pulse Ox Last 24 Hr 97.3 F-98.2 F 65-100 18-19 105-173/54-80 92-94 nad, no jvd irreg s1s2 +as murmur, no r/g cta bl nl eff aaox3 trace le edema bl, no c/c abd nt nd pos bs no jaundice diaphoresis CBC, BMP 11/21/16 06:30 11/21/16 06:30 Echo SJR 12/2015:Nl LV/RV. mod-sev MR, mod TR CXR: suboptimal. CM with LLL obscured. per report no congestion, but by my review, can't exclude. EKG: afib, vr 99 bpm. lad. anterior q waves. anterolateral STD/T wave abnormalities. Unchanged from priors. tele: afib, rate controlled a/p: 86 yo with h/o AF on AC, HTN, uncontrolled DM, CVA, dchf/le edema, anxiety who p/w sob acute Diastolic heart failure exacerbation (moderate MR/mild ): - Weight had recently stabilized as outpatient on lasix at 60 mg/day, but tends to run volume up overall b/c reluctant to adjust medication regimen. - renal function improved/stable s/p IV lasix 40 mg daily but still above dry weight (around 156 lbs), will change to lasix 40 iv bid atrial fibrillation with on Coumadin - no bleeding or transient neurologic symptoms on Coumadin - rate controlled on long standing regimen (pt reluctant to change it) digoxin 0.125 mcg', verapamil 180 mg tid, labetolol 300 bid at home. - 11/16: Digoxin level borderline elevated. Repeat level pending. --> held verapamil dose due to interaction and increased labetolol to TID dosing. - 11/17: Digoxin level normalized last night. Rate now uncontrolled. Will change back to home regimen of verapamil 180 mg TID and labetolol bid. Con't to hold digoxin for now. - 11/18 - 11/21: rate controlled, con't same. If rate remains controlled, will consider remaining off digoxin emt intermediate. 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 - Blood pressure today reasonably controlled on rate control meds and losartan, con't Hyperlipidemia, - also with hypertriglyeridemia likely from elevated blood sugars. Diabetes management per PMD (pt reluctant to make any changes). Declines statin therapy. UTI - mgm't per pmd
[2016-11-21] MEDS: LACTOBACILLUS ACIDOPHILUS 1 EACH TAB (FP) PO SCH (10:30)
[2016-11-21] MEDS: LABETALOL HCL 100 MG TABLET (FP) PO SCH ×2 (10:30→22:12)
[2016-11-21] MEDS: LOSARTAN POTASSIUM 25 MG TABLET PO SCH (10:30)
[2016-11-21] MEDS: TIMOLOL 0.25% OPHTHALMIC SOL 5 ML BOTTLE OD SCH (10:30)
[2016-11-21] MEDS: PANTOPRAZOLE 40 MG TABLET (FP) PO SCH (10:31)
[2016-11-21] MEDS ORDERED: guaiFENesin/D-M SUGAR-FREE/ACLHOL-FREE 118 ML BOTTLE PO PRN (13:27)
--- NOTE | 2016-11-21 13:29 | PN ---
Progress Note, Physician Chief Complaint: Ms Flores says the diarrhea resolved. No cp, sob, n/v. Says she is afraid to leave and feels safe here. - Current Medication List Current Medications: Active Medications Acetaminophen (Tylenol -) 650 mg PO Q4H PRN PRN Reason: FEVER OR PAIN Last Admin: 11/20/16 21:28 Dose: 650 mg Donepezil HCl (Aricept -) 5 mg PO HS [facility] Last Admin: 11/20/16 21:24 Dose: 5 mg Furosemide (Lasix Injection -) 40 mg IVPUSH ONCE ONE Stop: 11/21/16 16:01 Furosemide (Lasix Injection -) 40 mg IVPUSH BID@0600,1400 [facility] Guaifenesin (Diabetic Tussin Dm -) 10 ml PO Q6H PRN PRN Reason: COUGH Insulin Aspart (Novolog Vial Sliding Scale -) 1 vial SQ ACHS [facility] PRN Reason: Protocol Last Admin: 11/21/16 11:54 Dose: 2 unit Insulin Detemir (Levemir Vial) 15 units SQ BID@0700,2200 [facility] Last Admin: 11/21/16 06:30 Dose: 15 units Labetalol HCl (Normodyne -) 300 mg PO BID [facility] Last Admin: 11/21/16 10:30 Dose: 300 mg Lactobacillus Acidophilus (Bacid -) 1 tab PO DAILY [facility] Last Admin: 11/21/16 10:30 Dose: 1 tab Losartan Potassium (Cozaar -) 50 mg PO DAILY [facility] Last Admin: 11/21/16 10:30 Dose: 50 mg Magnesium Oxide (Mag-Ox -) 400 mg PO BID [facility] Metformin HCl (Glucophage -) 500 mg PO BIDAC [facility] Last Admin: 11/21/16 06:29 Dose: 500 mg Ondansetron HCl (Zofran Injection) 4 mg IVPB Q6H PRN PRN Reason: NAUSEA Pantoprazole Sodium (Protonix -) 40 mg PO DAILY [facility] Last Admin: 11/21/16 10:31 Dose: 40 mg Timolol Maleate (Timoptic 0.25%) 1 drop OD DAILY [facility] Last Admin: 11/21/16 10:30 Dose: 1 drop Verapamil HCl (Verapamil Hcl) 180 mg PO TID [facility] Last Admin: 11/21/16 06:29 Dose: 180 mg Warfarin Sodium (Coumadin -) 2 mg PO DAILY@1800 [facility] Last Admin: 11/20/16 17:32 Dose: 2 mg - Objective Vital Signs: Vital Signs Temperature 97.5 F L 11/21/16 09:00 Pulse Rate 80 11/21/16 09:00 Respiratory Rate 19 11/21/16 09:00 Blood Pressure 126/74 11/21/16 09:00 O2 Sat by Pulse Oximetry (%) 94 L 11/20/16 21:00 Constitutional: Yes: Well Nourished, No Distress, Calm Cardiovascular: Yes: Regular Rate and Rhythm. No: Gallop, Murmur, Rub Respiratory: Yes: Regular, CTA Bilaterally. No: Rales, Rhonchi, Wheezes Gastrointestinal: Yes: Normal Bowel Sounds, Soft. No: Distention, Tenderness Extremities: Yes: WNL Edema: Yes Edema: LLE: 1+, RLE: 1+ Labs: CBC, BMP 11/21/16 06:30 11/21/16 06:30 INR, PTT INR 2.88 (0.82-1.09) H 11/21/16 06:30 Problem List - Problems (1) Sepsis Code(s): A41.9 - SEPSIS, UNSPECIFIED ORGANISM (2) UTI (urinary tract infection) Code(s): N39.0 - URINARY TRACT INFECTION, SITE NOT SPECIFIED Qualifiers: Urinary tract infection type: site unspecified Hematuria presence: without hematuria Qualified Code(s): N39.0 - Urinary tract infection, site not specified (3) CHF (congestive heart failure) Code(s): I50.9 - HEART FAILURE, UNSPECIFIED Qualifiers: Congestive heart failure type: unspecified congestive heart failure type Congestive heart failure chronicity: acute on chronic Qualified Code(s ): I50.9 - Heart failure, unspecified (4) Atrial fibrillation Code(s): I48.91 - UNSPECIFIED ATRIAL FIBRILLATION (5) Diabetes Code(s): E11.9 - TYPE 2 DIABETES MELLITUS WITHOUT COMPLICATIONS (6) HTN (hypertension) Code(s): I10 - ESSENTIAL (PRIMARY) HYPERTENSION (7) Metabolic encephalopathy Code(s): G93.41 - METABOLIC ENCEPHALOPATHY (8) Hyperkalemia Code(s): E87.5 - HYPERKALEMIA Assessment/Plan (1) Sepsis -resolved Code(s): A41.9 - SEPSIS, UNSPECIFIED ORGANISM (2) UTI (urinary tract infection) Assessment/Plan: -urine culture showing e. coli -s/p full course rocephin Code(s): N39.0 - URINARY TRACT INFECTION, SITE NOT SPECIFIED Qualifiers: Urinary tract infection type: site unspecified Hematuria presence: without hematuria Qualified Code(s): N39.0 - Urinary tract infection, site not specified (3) CHF (congestive heart failure) Assessment/Plan: -appreciate cardiology assistance -cardiology increased lasix to bid Code(s): I50.9 - HEART FAILURE, UNSPECIFIED Qualifiers: Congestive heart failure type: unspecified congestive heart failure type Congestive heart failure chronicity: acute on chronic Qualified Code(s): I50.9 - Heart failure, unspecified (4) Atrial fibrillation Assessment/Plan: -rate controlled -continue home regimen -continue coumadin -follow INR Code(s): I48.91 - UNSPECIFIED ATRIAL FIBRILLATION (5) Diabetes Assessment/Plan: -continue metformin -changed levemir to 15 units bid -improved control today Code(s): E11.9 - TYPE 2 DIABETES MELLITUS WITHOUT COMPLICATIONS (6) HTN (hypertension) Assessment/Plan: -continue home regimen -monitor Code(s): I10 - ESSENTIAL (PRIMARY) HYPERTENSION (7) Metabolic encephalopathy Assessment/Plan: -continue low dose donepezil Code(s): G93.41 - METABOLIC ENCEPHALOPATHY (8) Hyperkalemia Assessment/Plan: -resolved (9) Diarrhea -resolved -c. diff negative
[2016-11-21] MEDS ORDERED: FUROSEMIDE 40 MG/4 ML INJECTABLE VIAL IVPUSH ONE (16:00)
--- NOTE | 2016-11-21 16:13 | PN ---
Progress Note, Physician History of Present Illness: Pt seen and examined at bedside. She denies shortness of breath. - Current Medication List Current Medications: Active Medications Acetaminophen (Tylenol -) 650 mg PO Q4H PRN PRN Reason: FEVER OR PAIN Last Admin: 11/20/16 21:28 Dose: 650 mg Donepezil HCl (Aricept -) 5 mg PO HS [facility] Last Admin: 11/20/16 21:24 Dose: 5 mg Furosemide (Lasix Injection -) 40 mg IVPUSH BID@0600,1400 [facility] Guaifenesin (Diabetic Tussin Dm -) 10 ml PO Q6H PRN PRN Reason: COUGH Insulin Aspart (Novolog Vial Sliding Scale -) 1 vial SQ ACHS [facility] PRN Reason: Protocol Last Admin: 11/21/16 11:54 Dose: 2 unit Insulin Detemir (Levemir Vial) 15 units SQ BID@0700,2200 [facility] Last Admin: 11/21/16 06:30 Dose: 15 units Labetalol HCl (Normodyne -) 300 mg PO BID [facility] Last Admin: 11/21/16 10:30 Dose: 300 mg Lactobacillus Acidophilus (Bacid -) 1 tab PO DAILY [facility] Last Admin: 11/21/16 10:30 Dose: 1 tab Losartan Potassium (Cozaar -) 50 mg PO DAILY [facility] Last Admin: 11/21/16 10:30 Dose: 50 mg Magnesium Oxide (Mag-Ox -) 400 mg PO BID [facility] Metformin HCl (Glucophage -) 500 mg PO BIDAC [facility] Last Admin: 11/21/16 06:29 Dose: 500 mg Ondansetron HCl (Zofran Injection) 4 mg IVPB Q6H PRN PRN Reason: NAUSEA Pantoprazole Sodium (Protonix -) 40 mg PO DAILY [facility] Last Admin: 11/21/16 10:31 Dose: 40 mg Timolol Maleate (Timoptic 0.25%) 1 drop OD DAILY [facility] Last Admin: 11/21/16 10:30 Dose: 1 drop Verapamil HCl (Verapamil Hcl) 180 mg PO TID [facility] Last Admin: 11/21/16 14:29 Dose: 180 mg Warfarin Sodium (Coumadin -) 2 mg PO DAILY@1800 [facility] Last Admin: 11/20/16 17:32 Dose: 2 mg - Objective Vital Signs: Vital Signs Temperature 98.2 F 04/20/17 14:34 Pulse Rate 91 H 11/21/16 14:34 Respiratory Rate 18 11/21/16 14:34 Blood Pressure 132/66 11/21/16 14:34 O2 Sat by Pulse Oximetry (%) 94 L 11/20/16 21:00 Constitutional: Yes: Calm Eyes: Yes: Conjunctiva Clear HENT: Yes: Atraumatic Neck: Yes: Supple Cardiovascular: Yes: S1, S2 Respiratory: Yes: On Nasal O2 Gastrointestinal: Yes: Soft, Abdomen, Obese Genitourinary: Yes: WNL Musculoskeletal: Yes: WNL Edema: No Neurological: Yes: Oriented Psychiatric: Yes: Oriented Labs: CBC, BMP 11/21/16 06:30 11/21/16 06:30 INR, PTT INR 2.88 (0.82-1.09) H 11/21/16 06:30 Problem List - Problems (1) Hyperglycemia Code(s): R73.9 - HYPERGLYCEMIA, UNSPECIFIED (2) Hyperkalemia Code(s): E87.5 - HYPERKALEMIA (3) Sepsis Code(s): A41.9 - SEPSIS, UNSPECIFIED ORGANISM (4) CHF (congestive heart failure) Code(s): I50.9 - HEART FAILURE, UNSPECIFIED Qualifiers: Congestive heart failure type: unspecified congestive heart failure type Congestive heart failure chronicity: acute on chronic Qualified Code(s ): I50.9 - Heart failure, unspecified (5) Atrial fibrillation Code(s): I48.91 - UNSPECIFIED ATRIAL FIBRILLATION (6) Diabetes Code(s): E11.9 - TYPE 2 DIABETES MELLITUS WITHOUT COMPLICATIONS (7) HTN (hypertension) Code(s): I10 - ESSENTIAL (PRIMARY) HYPERTENSION (8) UTI (urinary tract infection) Code(s): N39.0 - URINARY TRACT INFECTION, SITE NOT SPECIFIED Qualifiers: Urinary tract infection type: site unspecified Hematuria presence: without hematuria Qualified Code(s): N39.0 - Urinary tract infection, site not specified Assessment/Plan Current Medications Generic Name Dose Route Start Last Admin Trade Name Freq PRN Reason Stop Dose Admin Acetaminophen 650 mg 11/15/16 15:43 11/20/16 21:28 Tylenol - PO 650 mg Q4H PRN Administration FEVER OR PAIN Donepezil HCl 5 mg 11/19/16 22:00 11/20/16 21:24 Aricept - PO 5 mg HS SHERYL Administration Furosemide 40 mg 11/22/16 06:00 Lasix Injection - IVPUSH BID@0600,1400 [facility] Guaifenesin 10 ml 11/21/16 13:27 Diabetic Tussin Dm - PO Q6H PRN COUGH Insulin Aspart 1 vial 11/15/16 22:00 11/21/16 11:54 Novolog Vial Sliding Scale - SQ 2 unit ACHS SHERYL Administration Protocol Insulin Detemir 15 units 11/19/16 22:00 11/21/16 06:30 Levemir Vial SQ 15 units BID@0700,2200 SHERYL Administration Labetalol HCl 300 mg 11/17/16 22:00 11/21/16 10:30 Normodyne - PO 300 mg BID SHERYL Administration Lactobacillus Acidophilus 1 tab 11/16/16 10:00 11/21/16 10:30 Bacid - PO 1 tab DAILY SHERYL Administration Losartan Potassium 50 mg 11/19/16 14:42 11/21/16 10:30 Cozaar - PO 50 mg DAILY SHERYL Administration Magnesium Oxide 400 mg 11/21/16 22:00 Mag-Ox - PO BID SHERYL Metformin HCl 500 mg 11/15/16 18:30 11/21/16 06:29 Glucophage - PO 500 mg BIDAC SHERYL Administration Ondansetron HCl 4 mg 11/15/16 15:43 Zofran Injection IVPB Q6H PRN NAUSEA Pantoprazole Sodium 40 mg 11/16/16 10:00 11/21/16 10:31 Protonix - PO 40 mg DAILY SHERYL Administration Timolol Maleate 1 drop 11/16/16 10:00 11/21/16 10:30 Timoptic 0.25% OD 1 drop DAILY SHERYL Administration Verapamil HCl 180 mg 11/17/16 18:15 11/21/16 14:29 Verapamil Hcl PO 180 mg TID SHERYL Administration Warfarin Sodium 2 mg 11/16/16 18:00 11/20/16 17:32 Coumadin - PO 2 mg DAILY@1800 SHERYL Administration Impression 1. hyperkalemia 2. a-fib 3. HTN 4. DM 5. CHF 6. REGINE 7. UTI Plan - will increase cozaar to 100 - monitor renal function and potassium - cont abx - will follow PRN - discussed plan with primary Dr Desir
[2016-11-21] MEDS: WARFARIN NA 2 MG TABLET (UD) PO SCH (17:39)
[2016-11-21] MEDS: MAGNESIUM OXIDE 400 MG TABLET (FP) PO SCH (22:12)
[2016-11-21] MEDS: DONEPEZIL HCL 5 MG TABLET (FP) PO SCH (22:13)
[2016-11-21] MEDS: ACETAMINOPHEN 325 MG TABLET (FP) PO PRN (22:36)
[2016-11-22] MEDS: VERAPAMIL HCL 120 MG TABLET PO SCH ×2 (05:53→13:53)
[2016-11-22] MEDS: FUROSEMIDE 40 MG/4 ML INJECTABLE VIAL IVPUSH SCH ×2 (05:53→13:54)
[2016-11-22] MEDS: INSULIN SLIDING SCALE (NOVOLOG) 1 VIAL SQ SCH ×2 (06:31→12:27)
[2016-11-22 08:02] LABS: BASOPHIL 0.5 % (0-2.0); EOSINOPHIL 1.7 % (0-4.5); MCH 29.2 pg (25.7-33.7); MCHC 32.3 g/dl (32.0-36.0); MEAN CELL VOLUME 90.2 fl (80-96); MEAN PLT VOLUME 7.2 fl (7.5-11.1); PLATELET COUNT 477 K/MM3 (134-434); RDW 14.3 % (11.6-15.6); WHITE BLOOD COUNT 10.4 K/mm3 (4.0-10.0)
[2016-11-22 08:18] LABS: INR 2.98 (0.82-1.09); PROTHROMBIN TIME (PATIENT) 33.5 SEC (9.98-11.88)
[2016-11-22 08:28] LABS: COCKROFT - GAULT 69.8955; CREATININE 0.7 mg/dL (0.55-1.02); MAGNESIUM 1.8 mg/dL (1.8-2.4)
[2016-11-22] MEDS ORDERED: PT OWN MED DRAWER 7, Y5N ONE (09:02)
[2016-11-22] MEDS: PANTOPRAZOLE 40 MG TABLET (FP) PO SCH (09:12)
[2016-11-22] MEDS: LACTOBACILLUS ACIDOPHILUS 1 EACH TAB (FP) PO SCH (09:12)
[2016-11-22] MEDS: LABETALOL HCL 100 MG TABLET (FP) PO SCH (09:13)
[2016-11-22] MEDS: MAGNESIUM OXIDE 400 MG TABLET (FP) PO SCH (09:13)
[2016-11-22] MEDS: metFORMIN HCL 500 MG TABLET (FP) PO SCH (09:13)
[2016-11-22] MEDS: INSULIN DETEMIR 100 UNITS/ML MDV SQ SCH (09:14)
[2016-11-22] MEDS: TIMOLOL 0.25% OPHTHALMIC SOL 5 ML BOTTLE OD SCH (09:14)
[2016-11-22] MEDS ORDERED: LOSARTAN POTASSIUM 50 MG TABLET (FP) PO SCH (10:00)
--- NOTE | 2016-11-22 11:46 | PN ---
Progress Note (short form) - Note Progress Note: S: no cp, palps, dizzy, sob Current Medications Generic Name Dose Route Start Last Admin Trade Name Freq PRN Reason Stop Dose Admin Acetaminophen 650 mg 11/15/16 15:43 11/21/16 22:36 Tylenol - PO 650 mg Q4H PRN Administration FEVER OR PAIN Donepezil HCl 5 mg 11/19/16 22:00 11/21/16 22:13 Aricept - PO 5 mg HS SHERYL Administration Furosemide 40 mg 11/22/16 06:00 11/22/16 05:53 Lasix Injection - IVPUSH 40 mg BID@0600,1400 SHERYL Administration Guaifenesin 10 ml 11/21/16 13:27 11/21/16 17:32 Diabetic Tussin Dm - PO 10 ml Q6H PRN Administration COUGH Insulin Aspart 1 vial 11/15/16 22:00 11/22/16 06:31 Novolog Vial Sliding Scale - SQ Not Given ACHS SHERYL Protocol Insulin Detemir 15 units 11/19/16 22:00 11/22/16 09:14 Levemir Vial SQ 15 units BID@0700,2200 [facility] Administration Labetalol HCl 300 mg 11/17/16 22:00 11/22/16 09:13 Normodyne - PO 300 mg BID SHERYL Administration Lactobacillus Acidophilus 1 tab 11/16/16 10:00 11/22/16 09:12 Bacid - PO 1 tab DAILY SHERYL Administration Losartan Potassium 100 mg 11/22/16 10:00 11/22/16 09:13 Cozaar - PO 100 mg DAILY SHERYL Administration Magnesium Oxide 400 mg 11/21/16 22:00 11/22/16 09:13 Mag-Ox - PO 400 mg BID SHERYL Administration Metformin HCl 500 mg 11/15/16 18:30 11/22/16 09:13 Glucophage - PO 500 mg BIDAC SHERYL Administration Ondansetron HCl 4 mg 11/15/16 15:43 Zofran Injection IVPB Q6H PRN NAUSEA Pantoprazole Sodium 40 mg 11/16/16 10:00 11/22/16 09:12 Protonix - PO 40 mg DAILY SHERYL Administration Timolol Maleate 1 drop 11/16/16 10:00 11/22/16 09:14 Timoptic 0.25% OD 1 drop DAILY [facility]ERYL Administration Verapamil HCl 180 mg 11/17/16 18:15 11/22/16 05:53 Verapamil Hcl PO 180 mg TID SHERYL Administration Warfarin Sodium 2 mg 11/16/16 18:00 11/21/16 17:39 Coumadin - PO 2 mg DAILY@1800 SHERYL Administration Vital Signs Period Temp Pulse Resp BP Sys/Lomas Pulse Ox Last 24 Hr 97.5 F-98.4 F 70-110 18-20 114-162/55-101 94 nad, no jvd irreg s1s2 +as murmur, no r/g cta bl nl eff aaox3 trace le edema bl, no c/c abd nt nd pos bs no jaundice diaphoresis CBC, BMP 11/22/16 06:22 11/22/16 06:22 Echo SJR 12/2015:Nl LV/RV. mod-sev MR, mod TR CXR: suboptimal. CM with LLL obscured. per report no congestion, but by my review, can't exclude. EKG: afib, vr 99 bpm. lad. anterior q waves. anterolateral STD/T wave abnormalities. Unchanged from priors. tele: afib, rate controlled a/p: 86 yo with h/o AF on AC, HTN, uncontrolled DM, CVA, dchf/le edema, anxiety who p/w sob acute Diastolic heart failure exacerbation (moderate MR/mild ): - Weight had recently stabilized as outpatient on lasix at 60 mg/day, but tends to run volume up overall b/c reluctant to adjust medication regimen. - renal function improved/stable s/p IV lasix here and pt feeling well, le edema improved. Can change to outpt regimen of lasix 60mg po qday upon dc. atrial fibrillation with on Coumadin - no bleeding or transient neurologic symptoms on Coumadin - rate controlled on long standing regimen (pt reluctant to change it) digoxin 0.125 mcg', verapamil 180 mg tid, labetolol 300 bid at home. - 11/16: Digoxin level borderline elevated. Repeat level pending. --> held verapamil dose due to interaction and increased labetolol to TID dosing. - 11/17: Digoxin level normalized last night. Rate now uncontrolled. Will change back to home regimen of verapamil 180 mg TID and labetolol bid. Con't to hold digoxin for now. - 11/18 - 4/21: rate controlled, con't same. Digoxin has been discontinued here. 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 - Blood pressure today reasonably controlled on rate control meds and losartan, con't Hyperlipidemia, - also with hypertriglyeridemia likely from elevated blood sugars. Diabetes management per PMD (pt reluctant to make any changes). Declines statin therapy. UTI - mgm't per pmd cardiac alatorre stable for dc
--- NOTE | 2016-11-22 12:47 | DS ---
Physical Examination Vital Signs: Vital Signs Temperature 98.4 F 11/22/16 10:00 Pulse Rate 76 11/22/16 10:00 Respiratory Rate 20 11/22/16 10:00 Blood Pressure 148/80 11/22/16 10:00 O2 Sat by Pulse Oximetry (%) 94 L 11/21/16 22:00 Constitutional: Yes: Well Nourished, No Distress, Calm Cardiovascular: Yes: Regular Rate and Rhythm. No: Gallop, Murmur, Rub Respiratory: Yes: Regular, CTA Bilaterally. No: Rales, Rhonchi, Wheezes Gastrointestinal: Yes: Soft. No: Distention, Tenderness Extremities: Yes: WNL Edema: Yes Edema: LLE: 1+, RLE: 1+ Labs: CBC, BMP 11/22/16 06:22 11/22/16 06:22 Discharge Summary Reason For Visit: UTI,HYPERGLYCEMIA,HYPERKALEMIA Current Active Problems Hyperglycemia (Acute) Hyperkalemia (Acute) Metabolic encephalopathy (Acute) Sepsis (Acute) CHF (congestive heart failure) (Chronic) Hospital Course: (1) Sepsis Code(s): A41.9 - SEPSIS, UNSPECIFIED ORGANISM (2) UTI (urinary tract infection) Code(s): N39.0 - URINARY TRACT INFECTION, SITE NOT SPECIFIED Qualifiers: Urinary tract infection type: site unspecified Hematuria presence: without hematuria Qualified Code(s): N39.0 - Urinary tract infection, site not specified (3) CHF (congestive heart failure) Code(s): I50.9 - HEART FAILURE, UNSPECIFIED Qualifiers: Congestive heart failure type: unspecified congestive heart failure type Congestive heart failure chronicity: acute on chronic Qualified Code(s): I50.9 - Heart failure, unspecified (4) Atrial fibrillation Code(s): I48.91 - UNSPECIFIED ATRIAL FIBRILLATION (5) Diabetes Code(s): E11.9 - TYPE 2 DIABETES MELLITUS WITHOUT COMPLICATIONS (6) HTN (hypertension) Code(s): I10 - ESSENTIAL (PRIMARY) HYPERTENSION (7) Metabolic encephalopathy Code(s): G93.41 - METABOLIC ENCEPHALOPATHY (8) Hyperkalemia (9) Diarrhea Ms Flores is a very pleasant 86 year old female who comes in with UTI with sepsis and LV systolic dysfunction with exacerbation. She was admitted to the hospital on telemetry. She was seen by cardiology and diuresed. She was seen by nephrology and treated for hyperkalemia. Her UTI was susceptible to rocephin, she finished this course. Her levemir was adjusted for better control. Currently she is much improved. She was started on low dose namenda, patient appears to have the beginning of dementia. Currently she is stable for discharge to SNF 39 minutes spent in preparation of this discharge Condition: Stable - Instructions Diet, Activity, Other Instructions: Diabetic diet. Up with assistance, further activity per PT at SNF Referrals: Tung Diggs MD [Primary Care Provider] - [facility] - Home Medications Comprehensive Discharge Medication List: Ambulatory Orders Digoxin [Lanoxin -] 0.125 mg PO DAILY 12/12/15 Labetalol HCl 100 mg PO BID 12/12/15 Losartan Potassium 100 mg PO DAILY 12/12/15 Metformin HCl [Glucophage -] 500 mg PO BID 12/12/15 Timolol 0.25% [Timoptic 0.25%] 5 ml OD DAILY 12/12/15 Verapamil HCl [Verapamil ER] 180 mg PO TID 12/12/15 Acetaminophen [Tylenol .Regular Strength -] 650 mg PO Q4H PRN #0 tablet Donepezil HCl [Aricept -] 5 mg PO HS tablet 11/22/16 Furosemide [Lasix] 60 mg PO DAILY #60 tablet 11/22/16 Guaifenesin/D-Methorphan Hb [Diabetic Tussin Dm -] 10 ml PO Q6H PRN #0 ml Insulin (Levemir) [Levemir Vial] 15 units SQ BID@0700,2200 ml 11/22/16 Insulin Sliding Scale [Novolog Vial Sliding Scale -] 1 vial SQ ACHS units 11/22 Magnesium Oxide [Mag-Ox -] 400 mg PO BID tablet 11/22/16 Warfarin Na [Coumadin -] 2 mg PO DAILY@1800 tablet 11/22/16
[2016-11-22 13:57] VITALS: BP 134/76; PULSE 101; TEMP 98.2
== END 2016-11-22 15:12 | DRG 871 ==
LOC: JER 12:11 → JERBED 15:04 → J4S 16:10
PROVIDERS: ADMIT Internal Medicine; ATTEND Internal Medicine
DX: A41.9 Sepsis, unspecified organism (principal); G93.41 Metabolic encephalopathy; I50.33 Acute on chronic diastolic (congestive) heart failure; N17.9 Acute kidney failure, unspecified; E87.1 Hypo-osmolality and hyponatremia; I48.91 Unspecified atrial fibrillation; E87.5 Hyperkalemia; R19.7 Diarrhea, unspecified; E11.65 Type 2 diabetes mellitus with hyperglycemia; I11.0 Hypertensive heart disease with heart failure
CPT/HCPCS: 36415; 70450-TC; 71010-TC; 72100-TC; 76775-TC; 76856-TC; 80048; 80053; 80162; 81003; 81015; 82009; 82436; 82550; 82570; 83605; 83735; 83880; 84100; 84132; 84133; 84156; 84300; 84484; 84540; 85025; 85027; 85610; 87040; 87086; 87186; 87324; 87449; 93005; 93010; 97116-GP; 97161-GP; 99285-25

== ENCOUNTER 2017-03-09 07:13 | Inpatient (IN) | payer OTHER, BC ==
--- NOTE | 2017-03-09 07:48 | PDOC ---
History of Present Illness - General Chief Complaint: Shortness of Breath Stated Complaint: DIFFICULTY BREATHING Time Seen by Provider: 03/09/17 07:35 History Source: Patient, EMS Exam Limitations: No Limitations - History of Present Illness Initial Comments: 86 yo female with h/o A-fib (on warfarin, digoxin), IDDM (on metformin, humalog , levemir), CHF, HTN (on Lasix, losartan, labetalol, verapamil), and glaucoma who was BIBA c/o shortness of breath and generalized weakness at her care facility this morning, with blood pressure measured to be 222/148 by facility staff. Per EMS, the patient was also complaining of post-nasal drip. She was recently started on ciprofloxacin for a UTI on 03/07/17. The patient herself is complaining of chest heaviness here in the ED. She denies any fever, chills, nausea, vomiting, abdominal pain, rash, or other symptoms. 03/09/17 08:36 Past History - Past Medical History Allergies/Adverse Reactions: Allergies Allergy/AdvReac Type Severity Reaction Status Date / Time clindamycin Allergy Verified 11/15/16 12:27 Penicillins AdvReac Verified 03/09/17 09:34 Home Medications: Ambulatory Orders Digoxin [Lanoxin -] 0.125 mg PO DAILY 12/12/15 Labetalol HCl 100 mg PO BID 12/12/15 Losartan Potassium 100 mg PO DAILY 12/12/15 Metformin HCl [Glucophage -] 1,000 mg PO BID 12/12/15 Timolol 0.25% [Timoptic 0.25%] 5 ml OD DAILY 12/12/15 Verapamil HCl [Verapamil ER] 240 mg PO BID 12/12/15 Furosemide [Lasix] 60 mg PO DAILY #60 tablet 11/22/16 Guaifenesin/D-Methorphan Hb [Diabetic Tussin Dm -] 10 ml PO Q6H PRN #0 ml Insulin (Levemir) [Levemir Vial] 15 units SQ BID@0700,2200 ml 11/22/16 Insulin Sliding Scale [Novolog Vial Sliding Scale -] 1 vial SQ ACHS units 11/22 Warfarin Na [Coumadin -] 2 mg PO DAILY@1800 tablet 11/22/16 Acetaminophen [Tylenol .Regular Strength -] 1,000 mg PO Q4H PRN 03/09/17 Biotin 1,000 mcg PO DAILY 03/09/17 Cholecalciferol (Vitamin D3) [Vitamin D3 -] 1,000 unit PO DAILY 03/09/17 Magnesium Oxide [Mag-Ox -] 400 mg PO DAILY 03/09/17 Multivitamin with Iron [Daily Shanell with Iron] 1 each PO DAILY 03/09/17 Anemia: No Asthma: No Cancer: No Cardiac Disorders: Yes (atrial fibrillation, ASHD) CVA: Yes (03/2015) COPD: No CHF: Yes Dementia: No Diabetes: Yes (IDDM) GI Disorders: Yes (Diverticulosis, colon polyp, Pancreatic neoplasm) Disorders: No HTN: Yes Hypercholesterolemia: Yes Liver Disease: Yes (Fatty Liver) Suicide Attempt (Hx): No Seizures: No Thyroid Disease: No - Surgical History Appendectomy: No Cardiac Surgery: No Cholecystectomy: No Lung Surgery: No Neurologic Surgery: No Orthopedic Surgery: No - Immunization History Immunization Up to Date: No - Psycho/Social/Smoking Cessation Hx Anxiety: No Suicidal Ideation: No Smoking History: Never smoked Have you smoked in the past 12 months: No Number of Cigarettes Smoked Daily: 0 Information on smoking cessation initiated: No Hx Alcohol Use: No Drug/Substance Use Hx: No Substance Use Type: None Hx Substance Use Treatment: No Review of Systems - Review of Systems Able to Perform ROS?: Yes Constitutional: Yes: Weakness. No: Chills, Fever, Unexplained wgt Loss HEENTM: Yes: Other (post-nasal drip). No: Throat Swelling, Mouth Swelling Respiratory: Yes: Cough, Shortness of Breath Cardiac (ROS): Yes: Chest Pain (heaviness). No: Palpitations ABD/GI: No: Constipated, Diarrhea, Nausea, Vomiting : No: Discharge, Flank Pain Musculoskeletal: No: Back Pain, Neck Pain Integumentary: No: Bruising, Rash Neurological: No: Headache, Numbness, Tingling, Weakness, Dizziness Endocrine: No: Unexplained Weight Gain, Unexplained Weight Loss *Physical Exam - Vital Signs Last Vital Signs Temp Pulse Resp BP Pulse Ox 97.3 F L 80 18 181/102 100 03/09/17 07:13 03/09/17 07:13 03/09/17 07:13 03/09/17 07:13 03/09/17 07:13 - Physical Exam General Appearance: Yes: Nourished, Appropriately Dressed, Mild Distress ( intermittently yelling for help when nobody is in the room with her, but conversive and concerned for her diabetes), Other (Initially very pleasant and conversive, becomes frustrated easily, well-appearing and nontoxic) HEENT: positive: EOMI, ROSMERY, Normal Voice, Hearing Grossly Normal, Other ( bilateral crusting conjunctivitis). negative: Scleral Icterus (R), Scleral Icterus (L), Nasal Congestion Neck: positive: Trachea midline, Supple. negative: Tender, Rigid Respiratory/Chest: positive: Lungs Clear, Normal Breath Sounds. negative: Respiratory Distress, Accessory Muscle Use, Labored Respiration, Crackles, Rhonchi, Stridor, Wheezing Cardiovascular: positive: Regular Rhythm, Regular Rate, Edema (2+ pitting edema BLE with stated baseline BLE edema R>L), Murmur (3/6 systolic at LUSB) Gastrointestinal/Abdominal: positive: Normal Bowel Sounds, Soft. negative: Tender, Organomegaly, Pulsatile Mass, Guarding Musculoskeletal: positive: Normal Inspection. negative: Decreased Range of Motion, Vertebral Tenderness Extremity: positive: Normal Capillary Refill, Normal Inspection, Normal Range of Motion, Swelling. negative: Tender, Cyanosis Integumentary: positive: Normal Color, Dry, Warm. negative: Erythema, Rash, Bruising Neurologic: positive: information writer II-XII NML intact, Fully Oriented, Alert, Normal Mood/ Affect, Normal Response, Motor Strength 5/5 Heart Score/ECG Review - History History: Moderately suspicious - Electrocardiogram EKG: Non specific repolarization disturbance - Age Age: >/= 65 - Risk Factors Risk Factors Heart Score: Yes Hx Hypertension, Yes Hx Diabetes Based on the list above the patient has:: 1-2 risk factors #1 ECG reviewed & interpreted by me at: 07:43 A-fib, rate of 98, with t-wave inversions in I, II, aVL, and ST depressions in V5 and V6, all of which are not new compared with prior studies. ED Treatment Course - LABORATORY CBC & Chemistry Diagram: 03/09/17 08:57 03/09/17 08:57 - RADIOLOGY Radiograph Interpretation: EXAM#: TYPE/EXAM: RESULT: [id number] RAD/CHEST X-RAY PORTABLE* AP portable chest: Chest pain Since 11/15/2016, again noted is a large heart with unfolded aorta and midline trachea. There are some prominent central markings with some minimal atelectatic changes at the bases. There is left axillary calcification. There are degenerative spine and shoulder changes. Impression: Large heart. Prominent central markings with minimal atelectatic changes. Degenerative findings. Reported By: Nato Awad MD 03/09/17 0845 Medical Decision Making - Medical Decision Making 86 yo female h/o A-fib, IDDM, CHF, HTN, UTI started cipro 03/07, was BIBA c/o SOB , gen weakness, BP 222/148. Notes chest heaviness here in the ED. Exam with 3/6 systolic murmur and 2+ pitting edema BLE, distant lung sounds, no JVD. DDX includes CHF exacerbation, ACS, PNA/bronchitis. Ordered is adult chest pain/ACS workup, sublingual NTG. 03/09/17 09:25 CXR with cardiomegaly, prominent central markings, mild atelectasis bilateral bases. Pt's heart rate up to the 130s on the monitor. Ordered her normal dose of labetalol (100mg); metoprolol 5mg IV, diltiazem 5mg IV. New baseline oxygen requirement on 2 LPM. 03/09/17 11:[address] Villa, who admits for Dr. Lawson (Pt' PCP). *DC/Admit/Observation/Transfer Diagnosis at time of Disposition: CHF (congestive heart failure) Qualifiers: Congestive heart failure type: unspecified congestive heart failure type Congestive heart failure chronicity: acute on chronic Qualified Code(s): I50.9 - Heart failure, unspecified Atrial fibrillation Qualifiers: Atrial fibrillation type: chronic Qualified Code(s): I48.2 - Chronic atrial fibrillation Chest pain Qualifiers: Chest pain type: unspecified Qualified Code(s): R07.9 - Chest pain, unspecified HTN (hypertension) Qualifiers: Hypertension type: unspecified Qualified Code(s): I10 - Essential (primary) hypertension - Discharge Dispostion Condition at time of disposition: Guarded Admit: Yes - Referrals - Attestations Physician Attestion: 03/09/17 08:38 I, Dr. Anayeli Vicente, attest that this document has been prepared under my direction and personally reviewed by me in its entirety. I further attest, that it accurately reflects all work, treatment, procedures and medical decision -making performed by me.
[2017-03-09] MEDS ORDERED: NITROGLYCERIN SUBLINGUAL 1/150 0.4 MG TAB SL ONE (08:15)
[2017-03-09] MEDS ORDERED: ASPIRIN 81 MG CHEWABLE TABLETS PO ONE (08:15)
[2017-03-09] MEDS ORDERED: ASPIRIN 81 MG CHEWABLE TABLETS ONE (08:49)
[2017-03-09] MEDS ORDERED: FUROSEMIDE 40 MG/4 ML INJECTABLE VIAL IVPUSH ONE (09:16)
[2017-03-09] MEDS ORDERED: dilTIAZem HCL 50 MG/10 ML - 10 ML VIAL IVPUSH ONE (09:16)
[2017-03-09 09:29] LABS: BASOPHIL 0.4 % (0-2.0); EOSINOPHIL 3.6 % (0-4.5); MCH 28.2 pg (25.7-33.7); MCHC 32.3 g/dl (32.0-36.0); MEAN CELL VOLUME 87.2 fl (80-96); NEUTROPHILS 70.6 % (42.8-82.8); PLATELET COUNT 255 K/MM3 (134-434); WHITE BLOOD COUNT 9.5 K/mm3 (4.0-10.0)
[2017-03-09 09:38] LABS: INR 2.64 (0.82-1.09); PROTHROMBIN TIME (PATIENT) 29.6 SEC (9.98-11.88)
[2017-03-09] MEDS ORDERED: METOPROLOL TARTRATE 5 MG/5 ML VIAL IVPUSH ONE ×3 (09:40→17:25)
[2017-03-09] MEDS ORDERED: LABETALOL HCL 100 MG TABLET (FP) PO ONE (09:40)
[2017-03-09] MEDS ORDERED: METOPROLOL TARTRATE 5 MG/5 ML VIAL ONE ×3 (09:57→17:52)
[2017-03-09] MEDS ORDERED: LABETALOL HCL 100 MG TABLET (FP) ONE (09:58)
[2017-03-09] MEDS ORDERED: FUROSEMIDE 40 MG/4 ML INJECTABLE VIAL ONE ×2 (09:59→14:42)
[2017-03-09 10:09] LABS: ALBUMIN 3.3 g/dl (3.4-5.0); ANION GAP 6 (8-16); BILIRUBIN,TOTAL 0.5 mg/dL (0.2-1.0); CO2 30 mmol/L (21-32); CREATININE 0.6 mg/dL (0.55-1.02); GLUCOSE,RANDOM 118 mg/dL (74-106); MAGNESIUM 1.7 mg/dL (1.8-2.4); SGOT/AST 17 U/L (15-37); SGPT/ALT 27 U/L (12-78); TOT PROT 6.5 g/dl (6.4-8.2)
[2017-03-09 10:13] LABS: ALK PHOS 60 U/L (45-117); CPK 149 IU/L (26-192); TROPONIN I < 0.02 ng/ml (0.00-0.05)
--- NOTE | 2017-03-09 10:22 | PDOC ---
Attending Attestation - Resident Resident Name: Anayeli Vicente - ED Attending Attestation I have performed the following: I have examined & evaluated the patient, The case was reviewed & discussed with the resident, I agree w/resident's findings & plan, Exceptions are as noted - HPI HPI: 03/09/17 10:19 "The patient is a 86 year old female, BIBA from [place] with a significant past medical history of afib, CHF, HTN and DM, who presents to the emergency department with SOB, chest pain, and high BP since this morning. The patient reports being sent here from her [facility] after having an abnormally high BP reading. She describes her chest pain as a pressure, that has improved since its originally onset this morning. She reports her SOB is often worse when lying flat or with any activities. The patient reports currently taking Cipro being treated for a recent UTI, started 03/07/17. She denies recent fevers, chills, headache or dizziness. She denies recent nausea, vomit, diarrhea or constipation. Allergies: NKA Past surgical history: None reported. Social history: Nonsmoker. Denies EtOH use and recreational drug use. Primary Care Physician: " - Physicial Exam PE: 03/09/17 10:20 "GENERAL: Awake, alert, and fully oriented, in no acute distress HEAD: No signs of trauma EYES: PERRLA, EOMI, sclera anicteric, conjunctiva clear ENT: Auricles normal inspection, hearing grossly normal, nares patent, oropharynx clear without exudates. Moist mucosa NECK: Normal ROM, supple, no lymphadenopathy, JVD, or masses LUNGS:Distant breath sounds. No wheezes, rales, or crackles HEART: Rapid irregularly irregular, normal S1 and S2, no murmurs, rubs or gallops ABDOMEN: Soft, nontender, normoactive bowel sounds. No guarding, no rebound. No masses EXTREMITIES: 1+pitting edema bilaterally. Normal range of motion. No clubbing or cyanosis. No cords, erythema, or tenderness NEUROLOGICAL: Cranial nerves II through XII grossly intact. Normal speech, normal gait SKIN: Warm, Dry, normal turgor, no rashes or lesions noted. " - Medical Decision Making 03/09/17 10:20 86 F with CHF, afib, HTN, DM presents to ER with chest pressure, orthopnea, and SANTOS. Pt's vitals notable for O2 sat in low 90s (pt not previously on home O2). Concerning for volume overload/CHF exacerbation. PE unlikely given therapeutic INR and no asymmetric leg swelling. Will r/o ACS given chest pain, but EKG is unchanged since prior. - Labs, BNP, trop - CXR - Nitro, lasix PRN - Admit 03/09/17 11:11 CXR with signs of mild pulm edema. Given lasix 60mg IV. While in ER, pt went into rapid afib, rate 130s. Given metoprolol 5mg IV and home dose of labetalol. HR improved to 100s. Admit for diuresis and further work up of chest pain and SOB. Heart Score/ECG Review - History History: Slightly suspicious - Electrocardiogram EKG: Non specific repolarization disturbance - Age Age: >/= 65 - Risk Factors Risk Factors Heart Score: Yes Hx Hypercholesterolemia, Yes Hx Hypertension, Yes Hx Diabetes, Yes Hx Obesity Based on the list above the patient has:: >/=3 risk factors or Hx atherosclerotic disease - Troponin Troponin: </= normal limit - Score Heart Score - Total: 5 - ECG Intrepretation Rhythm: Irregularly Irregular Comment:: 03/09/17 10:25 afib - [place]: Left [place] Deviation - ST and T Comment:: 03/09/17 10:25 TWI laterally seen on prior EKG - ECG Impressions Normal ECG: No Non-specific ST Elevation: No
--- NOTE | 2017-03-09 11:51 | HP ---
Admitting History and Physical - Admission History of Present Illness: - History of Present Illness Initial Comments: 86 yo female with h/o A-fib (on warfarin, digoxin), IDDM (on metformin, humalog , levemir), CHF, HTN (on Lasix, losartan, labetalol, verapamil), and glaucoma who was BIBA c/o shortness of breath and generalized weakness at her care facility this morning, with blood pressure measured to be 222/148 by facility staff. Per EMS, the patient was also complaining of post-nasal drip. She was recently started on ciprofloxacin for a UTI on 03/07/17. The patient herself is complaining of chest heaviness here in the ED. She denies any fever, chills, nausea, vomiting, abdominal pain, rash, or other symptoms. History Source: Patient, Medical Record - Past Medical History Cardiovascular: Yes: AFIB, CHF, HTN Gastrointestinal: No: Ascites, Cancer, Constipation, Crohn's Disease, Diverticulitis, Diverticulosis, Esophageal Varices, Gastritis, GERD, GI Bleed, Hemorrhoids, Hiatal Hernia, Inflamatory Bowel Disease, Irritable Bowel Disease, Pancreatitis, Peptic Ulcer Disease, Ulcerative Colitis, Other Hepatobiliary: No: Cirrhosis, Cholelithiasis, Cholecystitis, Choledocholithiasis , Hepatitis A, Hepatitis B, Hepatitis C, Other Renal/: No: Renal Failure, Renal Inusuff, BPH, Cancer, Hematuria, Hemodialysis , Neurogenic Bladder, Renal Calculi, UTI, Other Endocrine: Yes: Diabetes Mellitus - Past Surgical History Past Surgical History: Yes: Hysterectomy - Smoking History Smoking history: Never smoked Have you smoked in the past 12 months: No Aproximately how many cigarettes per day: 0 - Alcohol/Substance Use Hx Alcohol Use: No History of Substance Use: reports: None - Social History 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 Children do not live locally.) History of Recent Travel: No Home Medications - Allergies Allergies/Adverse Reactions: Allergies Allergy/AdvReac Type Severity Reaction Status Date / Time clindamycin Allergy Verified 11/15/16 12:27 Penicillins AdvReac Verified 03/09/17 09:34 - Home Medications Home Medications: Ambulatory Orders Digoxin [Lanoxin -] 0.125 mg PO DAILY 12/12/15 Losartan Potassium 100 mg PO DAILY 12/12/15 Metformin HCl [Glucophage -] 1,000 mg PO BID 12/12/15 Timolol 0.25% [Timoptic 0.25%] 5 ml OU DAILY 12/12/15 Verapamil HCl [Verapamil ER] 240 mg PO BID 12/12/15 Furosemide [Lasix] 60 mg PO DAILY #60 tablet 11/22/16 Guaifenesin/D-Methorphan Hb [Diabetic Tussin Dm -] 10 ml PO Q6H PRN #0 ml Insulin (Levemir) [Levemir Vial] 15 units SQ BID@0700,2200 ml 11/22/16 Insulin Sliding Scale [Novolog Vial Sliding Scale -] 1 vial SQ ACHS units 11/22 Warfarin Na [Coumadin -] 2 mg PO DAILY@1800 tablet 11/22/16 Acetaminophen [Tylenol .Regular Strength -] 1,000 mg PO HS 03/09/17 Biotin 1,000 mcg PO DAILY 03/09/17 Cholecalciferol (Vitamin D3) [Vitamin D3 -] 1,000 unit PO DAILY 03/09/17 Ciprofloxacin HCl 250 mg PO BID 03/09/17 Loperamide HCl [Anti-Diarrheal] 1 tab PO ASDIR PRN 03/09/17 Magnesium Oxide [Mag-Ox -] 400 mg PO BID 03/09/17 Multivitamin with Iron [Daily Shanell with Iron] 1 each PO DAILY 03/09/17 Family Disease History - Family Disease History Family Disease History: Heart Disease: Father, Other: Mother (TIA, lived to ) Physical Examination Vital Signs: Vital Signs Temperature 97.3 F L 03/09/17 07:13 Pulse Rate 122 H 03/09/17 09:10 Respiratory Rate 18 03/09/17 07:13 Blood Pressure 144/98 03/09/17 09:10 O2 Sat by Pulse Oximetry (%) 95 03/09/17 09:10 Constitutional: Yes: Well Nourished, No Distress, Anxious Eyes: Yes: Conjunctiva Clear, EOM Intact HENT: Yes: Atraumatic, Normocephalic Neck: Yes: Supple, Trachea Midline Cardiovascular: Yes: Tachycardia, Pulse Irregular Respiratory: Yes: Diminished (bibasilar) Gastrointestinal: Yes: Normal Bowel Sounds, Soft Renal/: Yes: WNL Breast(s): Yes: WNL Musculoskeletal: Yes: WNL Extremities: Yes: WNL, Other (right leg greater than left + pulses / good cap refill) Edema: No Peripheral Pulses WNL: Yes Peripheral Pulses: Left Radial: 1+, Right Radial: 1+, Left Doralis Pedis: 1+, Right Dorsalis Pedis: 1+, Left Femoral: 1+, Right Femoral: 1+ Integumentary: Yes: WNL Neurological: Yes: WNL, Alert, Oriented Psychiatric: Yes: Alert, Oriented Labs: CBC, BMP 03/09/17 08:57 03/09/17 08:57 Imaging - Results Chest X-ray: Report Reviewed, Image Reviewed Problem List - Problems (1) Atrial fibrillation Code(s): I48.91 - UNSPECIFIED ATRIAL FIBRILLATION Qualifiers: Atrial fibrillation type: chronic Qualified Code(s): I48.2 - Chronic atrial fibrillation (2) CHF (congestive heart failure) Code(s): I50.9 - HEART FAILURE, UNSPECIFIED Qualifiers: Congestive heart failure type: unspecified congestive heart failure type Congestive heart failure chronicity: acute on chronic Qualified Code(s ): I50.9 - Heart failure, unspecified (3) HTN (hypertension) Code(s): I10 - ESSENTIAL (PRIMARY) HYPERTENSION Qualifiers: Hypertension type: unspecified Qualified Code(s): I10 - Essential ( primary) hypertension (4) Diabetes Code(s): E11.9 - TYPE 2 DIABETES MELLITUS WITHOUT COMPLICATIONS
[2017-03-09] MEDS: FUROSEMIDE 40 MG/4 ML INJECTABLE VIAL IVPUSH SCH (14:50)
[2017-03-09 18:19] VITALS: BMI 31.2
[2017-03-09] MEDS ORDERED: DIGOXIN 0.5 MG/2 ML AMPUL IVPUSH ONE (18:20)
[2017-03-09] MEDS ORDERED: DIGOXIN 0.5 MG/2 ML AMPUL ONE (18:22)
[2017-03-09] MEDS ORDERED: ACETAMINOPHEN 325 MG TABLET (FP) PO ONE (20:21)
[2017-03-09] MEDS ORDERED: ACETAMINOPHEN 325 MG TABLET (FP) ONE (20:28)
[2017-03-09] MEDS: HEPARIN NA (PORCINE) 5,000 UNITS/ML 1ML VIAL SQ SCH (22:00)
[2017-03-09] MEDS: MAGNESIUM OXIDE 400 MG TABLET (FP) PO SCH (22:00)
[2017-03-09] MEDS ORDERED: HEPARIN NA (PORCINE) 5,000 UNITS/ML 1ML VIAL ONE (22:20)
[2017-03-09] MEDS ORDERED: MAGNESIUM OXIDE 400 MG TABLET (FP) ONE (22:23)
[2017-03-09] MEDS ORDERED: LORazepam 0.5 MG TABLET ONE (22:54)
[2017-03-09] MEDS ORDERED: LORazepam 0.5 MG TABLET PO ONE (23:00)
[2017-03-10] MEDS: INSULIN DETEMIR 100 UNITS/ML MDV SQ SCH ×3 (00:38→22:33)
[2017-03-10] MEDS: ACETAMINOPHEN 500 MG TABLET (FP) PO PRN ×3 (05:43→23:32)
[2017-03-10] MEDS: FUROSEMIDE 40 MG/4 ML INJECTABLE VIAL IVPUSH SCH ×3 (05:43→13:53)
[2017-03-10] MEDS: metFORMIN HCL 500 MG TABLET (FP) PO SCH ×2 (06:18→17:16)
[2017-03-10 07:14] LABS: BASOPHIL 0.7 % (0-2.0); EOSINOPHIL 2.7 % (0-4.5); MCHC 32.2 g/dl (32.0-36.0); MEAN CELL VOLUME 87.1 fl (80-96); MEAN PLT VOLUME 7.1 fl (7.5-11.1); NEUTROPHILS 65.8 % (42.8-82.8); PLATELET COUNT 279 K/MM3 (134-434); RDW 15.4 % (11.6-15.6); WHITE BLOOD COUNT 9.2 K/mm3 (4.0-10.0)
[2017-03-10 07:42] LABS: ALBUMIN 3.3 g/dl (3.4-5.0); ANION GAP 6 (8-16); CALCIUM 8.4 mg/dL (8.5-10.1); CO2 33 mmol/L (21-32); CREATININE 0.8 mg/dL (0.55-1.02); GLUCOSE,RANDOM 171 mg/dL (74-106); MAGNESIUM 1.7 mg/dL (1.8-2.4); SGOT/AST 16 U/L (15-37); SGPT/ALT 28 U/L (12-78)
[2017-03-10 07:44] LABS: INR 2.24 (0.82-1.09)
[2017-03-10 07:48] LABS: ALK PHOS 63 U/L (45-117); BILIRUBIN,TOTAL 0.5 mg/dL (0.2-1.0); CHOLESTEROL 189 mg/dL (50-200); LDL CHOLESTEROL (ONLY SJRH) 90 mg/dL (5-100); TOT PROT 6.8 g/dl (6.4-8.2)
--- NOTE | 2017-03-10 08:46 | CON.CARD ---
Consult Consult Specialty:: cardio Referred by:: sammi Reason for Consultation:: hi bp, cp - History of Present Illness Chief Complaint: same History of Present Illness: 86 yo female presented to ER from [facility] c/o shortness of breath and generalized weakness starting on DOA. BP was 222/148 at her [facility]. She was recently started on ciprofloxacin for a UTI on 03/07/17. The patient complained of chest heaviness in the ED. Also reported sob worse with lying flat or with activity to ER--tells me it was really only sob with activity. no sob currently, lying flat no more cp/heaviness ER BP initially high, came down to 140s, back up again this am sat initially 100% (? on RA or note), since then 95+% on 2L PMH: A-fib (on warfarin, digoxin), IDDM, CHF, HTN, glaucoma - Past Medical History Cardio/Vascular: Yes: AFIB, CHF, HTN Gastrointestinal: No: Ascites, Cancer, Constipation, Crohn's Disease, Diverticulitis, Diverticulosis, Esophageal Varices, Gastritis, GERD, GI Bleed, Hemorrhoids, Hiatal Hernia, Inflamatory Bowel Disease, Irritable Bowel Disease, Pancreatitis, Peptic Ulcer Disease, Ulcerative Colitis, Other Hepatobiliary: No: Cirrhosis, Cholelithiasis, Cholecystitis, Choledocholithiasis , Hepatitis A, Hepatitis B, Hepatitis C, Other Renal/: No: Renal Failure, Renal Inusuff, BPH, Cancer, Hematuria, Hemodialysis , Neurogenic Bladder, Renal Calculi, UTI, Other Endocrine: Yes: Diabetes Mellitus - Past Surgical History Past Surgical History: Yes: Hysterectomy - Alcohol/Substance Use Hx Alcohol Use: No History of Substance Use: reports: None - Smoking History Smoking history: Never smoked Have you smoked in the past 12 months: No Aproximately how many cigarettes per day: 0 - Social History 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 Children do not live locally.) History of Recent Travel: No Home Medications - Allergies Allergies/Adverse Reactions: Allergies Allergy/AdvReac Type Severity Reaction Status Date / Time clindamycin Allergy Verified 11/15/16 12:27 Penicillins AdvReac Verified 03/09/17 09:34 - Home Medications Home Medications: Ambulatory Orders Digoxin [Lanoxin -] 0.125 mg PO DAILY 12/12/15 Losartan Potassium 100 mg PO DAILY 12/12/15 Metformin HCl [Glucophage -] 1,000 mg PO BID 12/12/15 Timolol 0.25% [Timoptic 0.25%] 5 ml OU DAILY 12/12/15 Verapamil HCl [Verapamil ER] 240 mg PO BID 12/12/15 Furosemide [Lasix] 60 mg PO DAILY #60 tablet 11/22/16 Guaifenesin/D-Methorphan Hb [Diabetic Tussin Dm -] 10 ml PO Q6H PRN #0 ml Insulin (Levemir) [Levemir Vial] 15 units SQ BID@0700,2200 ml 11/22/16 Insulin Sliding Scale [Novolog Vial Sliding Scale -] 1 vial SQ ACHS units 11/22 Warfarin Na [Coumadin -] 2 mg PO DAILY@1800 tablet 11/22/16 Acetaminophen [Tylenol .Regular Strength -] 1,000 mg PO HS 03/09/17 Biotin 1,000 mcg PO DAILY 03/09/17 Cholecalciferol (Vitamin D3) [Vitamin D3 -] 1,000 unit PO DAILY 03/09/17 Ciprofloxacin HCl 250 mg PO BID 03/09/17 Loperamide HCl [Anti-Diarrheal] 1 tab PO ASDIR PRN 03/09/17 Magnesium Oxide [Mag-Ox -] 400 mg PO BID 03/09/17 Multivitamin with Iron [Daily Shanell with Iron] 1 each PO DAILY 03/09/17 Family Disease History - Family Disease History Family Disease History: Heart Disease: Father, Other: Mother (TIAs, lived to 90) Review of Systems - Review of Systems Constitutional: denies: Chills, Fever Eyes: denies: Eye Pain HENT: denies: Nasal Congestion Neck: denies: Stiffness Cardiovascular: denies: Palpitations Respiratory: denies: Orthopnea, PND Gastrointestinal: denies: Diarrhea, Rectal Bleeding Genitourinary: denies: Burning, Hematuria Musculoskeletal: denies: Muscle Pain Integumentary: denies: Rash Neurological: denies: Numbness, Seizure, Syncope Endocrine: denies: Excessive Sweating Hematology/Lymphatic: denies: Excessive Bleeding Vital Signs: Vital Signs Temperature 98.5 F 03/10/17 06:00 Pulse Rate 125 H 03/10/17 06:00 Respiratory Rate 20 03/10/17 06:00 Blood Pressure 176/84 03/10/17 06:00 O2 Sat by Pulse Oximetry (%) 95 03/09/17 17:45 Constitutional: Yes: Well Nourished, No Distress Eyes: No: Sclera Icterus HENT: No: Nasal Congestion Neck: No: Decreased ROM Respiratory: Yes: CTA Bilaterally. No: Accessory Muscle Use, Rales, Wheezes Gastrointestinal: Yes: Normal Bowel Sounds. No: Distention, Hepatomegaly, Palpable Mass, Tenderness Cardiovascular: Yes: Regular Rate and Rhythm JVD: Yes Carotid Bruit: No PMI: Non-Displaced Heart Sounds: Yes: S1, S2. No: Gallop Murmur: No: Systolic Murmur, Diastolic Murmur Musculoskeletal: Yes: Other (No kyphosis) Extremities: No: Cold, Cyanosis Edema: No Peripheral Pulses: 2+ Left Carotid, 2+ Right Carotid, 2+ Left Doralis Pedis, 2+ Right Dorsalis Pedis Integumentary: No: Jaundice Neurological: Yes: Alert, Oriented (x3) Psychiatric: No: Agitated - Other Data Labs, Other Data: CBC, BMP 03/10/17 06:30 03/10/17 06:30 INR, PTT INR 2.24 (0.82-1.09) H 03/10/17 06:30 Laboratory Tests 11/15/16 03/09/17 03/10/17 12:50 08:57 06:30 WBC 9.2 Hgb 11.0 D Plt Count 279 INR Sodium Potassium Carbon Dioxide BUN Creatinine AST ALT B-Natriuretic Peptide 3237.41 H 950.38 H Troponin I < 0.02 Triglycerides Cholesterol Total LDL Cholesterol HDL Cholesterol 03/10/17 03/10/17 06:30 06:30 WBC Hgb Plt Count INR 2.24 H Sodium 142 Potassium 3.4 L D Carbon Dioxide 33 H BUN 10 Creatinine 0.8 D AST 16 ALT 28 B-Natriuretic Peptide Troponin I Triglycerides 185 H Cholesterol 189 Total LDL Cholesterol 90 HDL Cholesterol 55 tele: AF mostly 110s-120s Imaging - Results Chest X-ray: Report Reviewed Assessment/Plan CXR: no chf, consolidation, effusions EKG 03/09/17: afib; normal axis/intervals; PRWP; diffuse nonsp ST-Ts--no change vs prior 11/18 Echo [facility] 12/2015: normal LV/RV. 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 inadvertently sent home on labetalol 100 bid per d/c summary note) -bp responded to meds administered in ED (lasix, labetalol 100, ativan) -climbing again this am though much better than on DOA -pt uncertain of details of bp readings but states was overall controlled until recently when spiking often, ? how high--attributes this to psychosocial family stressors -pt reluctant to change meds in past, per dr mcgee notes -change losartan (100mg qd) to valsartan (320mg qd) for better potency and consistent 24 hr drug levels (favor change to olmesartan as outpt--not of formulary here) -change labetalol 300 bid (11/18 hospital dose) to 200 TID, for better consistent drug levels -observe BP trend with above regimen -will try add chlorthalidone given volume up--consider d/c lasix later if remains well compensated volume alatorre -consider add low dose (0.1mg) clonidine patch (for consistent 24 hr drug levels ), given fluctuating bp history--yoanna if need to change labetalol to alternate BB for HR control -needs closer outpt cardio f/u after discharge atyp CP, sob: - -CXR without congestion -BNP 900, from 3K in 11/18 -trop negative x 2 Afib: -pt has been consistently reluctant to change bp or AF meds with dr mcgee in past -HRs mildly rapid here -per ER home meds list, she is on high dose verap (240 bid), labetalol (100 bid) , digoxin -was on labetalol 300 bid when last seen by us 11/18--changed to 200 TID here for more reliable drug levels (as above) -dig held when seen by us 11/18 (level 2.0)--per dr chapa, HR responded to this overnight when given 0.25mg IVP dose, level good on admit here -will d/c digoxin for now given advanced age and polypharmacy--observe HRs on current verap and labetalol regimen -pt previously required labetalol for BP control, hence will not switch to metoprolol which is better for HR control (can consider propranolol later if HRs remain uncontrolled, which is better for HR control and often has better BP efficacy than metoprolol) -CHADS VASC 5, has been maintained on AC (prior hemorrhagic CVA was sec to uncontrolled HTN--cont same with aggressive BP control as doing acute on chronic diast CHF: -well compensated with stable weight on lasix [address] mcgee in office, though felt to be volume up on this regimen (pt unwillingness to titrate diuretics further) -d/c wt 166 in 11/18 (from 170 peak) -no wt here--ordered -suspect JVD on exam though tds due to habitus (short neck) -ok for lasix 40 iv bid trial for now, as ordered--monitor wts and labs trend, suspect will be able to decrease lasix in future mitral regurgitation: -reported as moderate to severe on echo here 11/18 -will rpt echo once pt well diuresed
[2017-03-10 09:12] LABS: CPK 117 IU/L (26-192); TROPONIN I < 0.02 ng/ml (0.00-0.05)
[2017-03-10] MEDS ORDERED: VERAPAMIL HCL 240 MG E.R. TABLET (FP) PO SCH (10:00)
[2017-03-10] MEDS ORDERED: LABETALOL HCL 100 MG TABLET (FP) PO SCH ×2 (10:00)
[2017-03-10] MEDS ORDERED: DIGOXIN 0.125 MG TABLET (FP) PO SCH (10:00)
[2017-03-10] MEDS ORDERED: LOSARTAN POTASSIUM 50 MG TABLET (FP) PO SCH (10:00)
[2017-03-10] MEDS: VALSARTAN 160 MG TABLET (UD) PO SCH (10:22)
[2017-03-10] MEDS: MAGNESIUM OXIDE 400 MG TABLET (FP) PO SCH ×2 (10:22→22:34)
[2017-03-10] MEDS: HEPARIN NA (PORCINE) 5,000 UNITS/ML 1ML VIAL SQ SCH (10:22)
[2017-03-10] MEDS: VERAPAMIL HCL 240 MG E.R. TABLET (FP) PO SCH ×2 (12:02→22:34)
--- NOTE | 2017-03-10 13:34 | EKG ---
Test Reason : Blood Pressure : / mmHG Vent. Rate : 131 BPM Atrial Rate : 312 BPM P-R Int : 000 ms QRS Dur : 080 ms QT Int : 284 ms P-R-T Axes : 000 -25 195 degrees QTc Int : 419 ms ATRIAL FIBRILLATION WITH RAPID VENTRICULAR RESPONSE MARKED ST ABNORMALITY, POSSIBLE LATERAL SUBENDOCARDIAL INJURY ABNORMAL ECG WHEN COMPARED WITH ECG OF 09-MAR-2017 07:43, VENT. RATE HAS INCREASED Confirmed by SUSAN RESENDIZ, JUAN DAVID ([id number]) on 03/10/2017 1:33:51 PM Referred By: VALERIE NORRIS Confirmed By:JUAN DAVID DAVIS MD
--- NOTE | 2017-03-10 13:40 | EKG ---
Test Reason : Blood Pressure : / mmHG Vent. Rate : 098 BPM Atrial Rate : 125 BPM P-R Int : 000 ms QRS Dur : 082 ms QT Int : 340 ms P-R-T Axes : 000 -20 180 degrees QTc Int : 434 ms ATRIAL FIBRILLATION ANTERIOR INFARCT (CITED ON OR BEFORE 07-OCT-2006) ABNORMAL ECG WHEN COMPARED WITH ECG OF 15-NOV-2016 12:23, T WAVE VARIATION Confirmed by JUAN DAVID DAVIS MD ([id number]) on 03/10/2017 1:40:12 PM Referred By: Confirmed By:JUAN DAVID DAVIS MD
[2017-03-10] MEDS: TIMOLOL 0.25% OPHTHALMIC SOL 5 ML BOTTLE OU SCH ×2 (13:44→22:34)
[2017-03-10] MEDS: LABETALOL HCL 100 MG TABLET (FP) PO SCH ×2 (13:47→22:34)
[2017-03-10] MEDS: CHLORTHALIDONE 25 MG TABLET PO SCH (13:47)
[2017-03-10] MEDS ORDERED: POTASSIUM CHLORIDE TABS 20 MEQ TABLET.ER (FP) PO ONE (16:30)
[2017-03-10] MEDS ORDERED: WARFARIN NA 2 MG TABLET (UD) PO ONE (18:00)
[2017-03-10] MEDS ORDERED: PT OWN MED DRAWER 7, Y5N ONE (22:24)
--- NOTE | 2017-03-10 22:49 | PN ---
Progress Note (short form) - Note Progress Note: patient seen and examined in her room patient was treated aggressively last night for hypertensive urgency followed by episode of A. fib with RVR requiring additional IV meds finally responding additional dose of digoxin this am feeling well / denies Chest pain / SOB / diaphoresis was started on IV lasix last night Vital Signs Period Temp Pulse Resp BP Sys/Lomas Pulse Ox Last 24 Hr 98.4 F-99.1 F 72-139 18-20 137-188/71-92 sitting up in bed awake O x3 neck no JVD heart irreg lungs decreased at bases otherwise grossly clear abd soft non tender ext no calf tenderness / no edema CBC, BMP 03/10/17 06:30 03/10/17 06:30 Intake & Output 03/07/17 03/08/17 03/09/17 03/10/17 23:59 23:59 23:59 23:59 Intake Total 200 120 Balance 200 120 Weight 160 lb 0.002 oz 161 lb 8 oz CXR: no chf, consolidation, effusions EKG 03/09/17: afib; normal axis/intervals; PRWP; diffuse nonsp ST-Ts--no change vs prior 11/18 Echo [facility] 12/2015: normal LV/RV. mod-sev MR, mod TR Active Medications Acetaminophen (Tylenol -) 1,000 mg PO Q6H PRN PRN Reason: FEVER OR PAIN Last Admin: 03/10/17 17:17 Dose: 1,000 mg Chlorthalidone (Hygroton -) 25 mg PO DAILY [facility] Last Admin: 03/10/17 13:47 Dose: 25 mg Furosemide (Lasix Injection -) 40 mg IVPUSH BID@0600,1400 [facility] Last Admin: 03/10/17 13:53 Dose: 40 mg Insulin Detemir (Levemir Vial) 15 units SQ BID@0700,2200 [facility] Last Admin: 03/10/17 06:18 Dose: 15 units Labetalol HCl (Normodyne -) 200 mg PO TID [facility] Last Admin: 03/10/17 13:47 Dose: 200 mg Magnesium Oxide (Mag-Ox -) 400 mg PO BID [facility] Last Admin: 03/10/17 10:22 Dose: 400 mg Metformin HCl (Glucophage -) 1,000 mg PO BID@0700,1630 [facility] Last Admin: 03/10/17 17:16 Dose: 1,000 mg Timolol Maleate (Timoptic 0.25%) 1 drop OU BID [facility] Last Admin: 03/10/17 13:44 Dose: 1 drop Valsartan (Diovan -) 320 mg PO DAILY [facility] Last Admin: 03/10/17 10:22 Dose: 320 mg Verapamil HCl (Calan Sr -) 240 mg PO BID [facility] Last Admin: 03/10/17 12:02 Dose: 240 mg Warfarin Sodium (Coumadin -) 2 mg PO DAILY@1800 [facility] ASSMT/ Plans # uncontrolled HTN HTN urgency she relays hx of CVA in the past due to high blood pressure doesn't seem to concerned about current admission / unclear if compliant with meds at home had extensive discussion regarding quality of life -- another CVA could significantly compromise her quality she seems to be agreeable to adhere to medication regimine # chest pain / dyspnea due to HTN urgency / ischemic event ? follow cardiac enzymes / Monitor BP / EKG mildly elevated BMP ? due to HTN #A. Fib poor rate control ?? compliance discussed with Dr Payne -- apparently doses from time of last d/c and office visit are different than dose reported at ER Problem List - Problems (1) Atrial fibrillation Code(s): I48.91 - UNSPECIFIED ATRIAL FIBRILLATION Qualifiers: Atrial fibrillation type: chronic Qualified Code(s): I48.2 - Chronic atrial fibrillation (2) CHF (congestive heart failure) Code(s): I50.9 - HEART FAILURE, UNSPECIFIED Qualifiers: Congestive heart failure type: unspecified congestive heart failure type Congestive heart failure chronicity: acute on chronic Qualified Code(s ): I50.9 - Heart failure, unspecified (3) HTN (hypertension) Code(s): I10 - ESSENTIAL (PRIMARY) HYPERTENSION Qualifiers: Hypertension type: unspecified Qualified Code(s): I10 - Essential ( primary) hypertension (4) Diabetes Code(s): E11.9 - TYPE 2 DIABETES MELLITUS WITHOUT COMPLICATIONS
[2017-03-11] MEDS: LABETALOL HCL 100 MG TABLET (FP) PO SCH ×3 (06:47→21:00)
[2017-03-11] MEDS: FUROSEMIDE 40 MG/4 ML INJECTABLE VIAL IVPUSH SCH (06:47)
[2017-03-11] MEDS: ACETAMINOPHEN 500 MG TABLET (FP) PO PRN (06:47)
[2017-03-11 07:38] LABS: BASOPHIL 0.7 % (0-2.0); EOSINOPHIL 3.9 % (0-4.5); MCH 28.4 pg (25.7-33.7); MCHC 32.5 g/dl (32.0-36.0); MEAN CELL VOLUME 87.4 fl (80-96); MEAN PLT VOLUME 7.3 fl (7.5-11.1); NEUTROPHILS 60.3 % (42.8-82.8); PLATELET COUNT 259 K/MM3 (134-434); RDW 15.1 % (11.6-15.6); WHITE BLOOD COUNT 8.7 K/mm3 (4.0-10.0)
[2017-03-11 07:44] LABS: ANION GAP 6 (8-16); CALCIUM 8.6 mg/dL (8.5-10.1); CO2 32 mmol/L (21-32); CREATININE 0.7 mg/dL (0.55-1.02); GLUCOSE,RANDOM 114 mg/dL (74-106); MAGNESIUM 1.6 mg/dL (1.8-2.4)
--- NOTE | 2017-03-11 09:27 | PN ---
Progress Note (short form) - Note Progress Note: kate seen and examined in room with multiple complaints does not want monitor ( too heavy) / does not want lasix but admits is bresathing better more comfortable medications discussed / management discussed / Vital Signs Period Temp Pulse Resp BP Sys/Lomas Pulse Ox Last 24 Hr 97.6 F-99.1 F 72-139 18-20 137-163/71-92 93 neck suppl e heart Irreg irreg lungs clear bilat abd soft / obese ext no calf tenderness / no edema CBC, BMP 03/11/17 06:40 03/11/17 06:40 Active Medications Acetaminophen (Tylenol -) 1,000 mg PO Q6H PRN PRN Reason: FEVER OR PAIN Last Admin: 03/11/17 06:47 Dose: 1,000 mg Chlorthalidone (Hygroton -) 25 mg PO DAILY [facility] Last Admin: 03/10/17 13:47 Dose: 25 mg Insulin Detemir (Levemir Vial) 15 units SQ BID@0700,2200 [facility] Last Admin: 03/10/17 22:33 Dose: 15 units Labetalol HCl (Normodyne -) 200 mg PO TID [facility] Last Admin: 03/11/17 06:47 Dose: 200 mg Magnesium Oxide (Mag-Ox -) 400 mg PO BID [facility] Last Admin: 03/10/17 22:34 Dose: 400 mg Magnesium Sulfate (Magnesium Sulfate) 2 gm IVPB ONCE ONE Stop: 03/11/17 09:31 Metformin HCl (Glucophage -) 1,000 mg PO BID@0700,1630 [facility] Last Admin: 03/10/17 17:16 Dose: 1,000 mg Potassium Chloride (K-Dur -) 40 meq PO ONCE ONE Stop: 03/11/17 09:33 Timolol Maleate (Timoptic 0.25%) 1 drop OU BID [facility] Last Admin: 03/10/17 22:34 Dose: 1 drop Valsartan (Diovan -) 320 mg PO DAILY [facility] Last Admin: 03/10/17 10:22 Dose: 320 mg Verapamil HCl (Calan Sr -) 240 mg PO BID [facility] Last Admin: 03/10/17 22:34 Dose: 240 mg Warfarin Sodium (Coumadin -) 2 mg PO DAILY@1800 [facility] ASSMT/ Plans # uncontrolled HTN HTN urgency she relays hx of CVA in the past due to high blood pressure doesn't seem to concerned about current admission / unclear if compliant with meds at home had extensive discussion regarding quality of life -- another CVA could significantly compromise her quality she seems to be agreeable to adhere to medication regimine # chest pain / dyspnea due to HTN urgency / ischemic event ? follow cardiac enzymes / Monitor BP / EKG mildly elevated BMP ? due to HTN #A. Fib poor rate control on Coumadin -- follow INR ?? compliance discussed with Dr Payne -- apparently doses from time of last d/c and office visit are different than dose reported at ER # electolyte abn rep[lace as needed K / Mg Problem List - Problems (1) Atrial fibrillation Code(s): I48.91 - UNSPECIFIED ATRIAL FIBRILLATION Qualifiers: Atrial fibrillation type: chronic Qualified Code(s): I48.2 - Chronic atrial fibrillation (2) CHF (congestive heart failure) Code(s): I50.9 - HEART FAILURE, UNSPECIFIED Qualifiers: Congestive heart failure type: unspecified congestive heart failure type Congestive heart failure chronicity: acute on chronic Qualified Code(s ): I50.9 - Heart failure, unspecified (3) HTN (hypertension) Code(s): I10 - ESSENTIAL (PRIMARY) HYPERTENSION Qualifiers: Hypertension type: unspecified Qualified Code(s): I10 - Essential ( primary) hypertension (4) Diabetes Code(s): E11.9 - TYPE 2 DIABETES MELLITUS WITHOUT COMPLICATIONS
[2017-03-11] MEDS ORDERED: PT OWN MED DRAWER 7, Y5N ONE ×3 (09:54→20:50)
[2017-03-11] MEDS: VALSARTAN 160 MG TABLET (UD) PO SCH (10:01)
[2017-03-11] MEDS: VERAPAMIL HCL 240 MG E.R. TABLET (FP) PO SCH ×2 (10:02→21:00)
[2017-03-11] MEDS: metFORMIN HCL 500 MG TABLET (FP) PO SCH ×2 (10:02→17:44)
[2017-03-11] MEDS: MAGNESIUM OXIDE 400 MG TABLET (FP) PO SCH ×2 (10:02→21:00)
[2017-03-11] MEDS: CHLORTHALIDONE 25 MG TABLET PO SCH (10:02)
[2017-03-11] MEDS: TIMOLOL 0.25% OPHTHALMIC SOL 5 ML BOTTLE OU SCH ×2 (10:06→21:04)
[2017-03-11] MEDS: INSULIN DETEMIR 100 UNITS/ML MDV SQ SCH ×2 (10:09→21:01)
[2017-03-11] MEDS ORDERED: MAGNESIUM SULF 50% (8.12 MEQ/2 ML-1 GM VIAL) IVPB ONE (10:15)
[2017-03-11] MEDS ORDERED: POTASSIUM CHLORIDE TABS 20 MEQ TABLET.ER (FP) PO ONE (10:30)
[2017-03-11 11:14] LABS: INR 2.24 (0.82-1.09)
--- NOTE | 2017-03-11 11:59 | PN ---
Progress Note (short form) - Note Progress Note: Chief Complaint: HTN/cp S: s/p lasix 40 mg IV this morning. states breathing back to baseline. States she refuses to take more IV lasix. Current Medications Acetaminophen (Tylenol -) 1,000 mg PO Q6H PRN PRN Reason: FEVER OR PAIN Last Admin: 03/11/17 06:47 Dose: 1,000 mg Furosemide (Lasix -) 80 mg PO DAILY [facility] Insulin Detemir (Levemir Vial) 15 units SQ BID@0700,2200 [facility] Last Admin: 03/11/17 10:09 Dose: 15 units Labetalol HCl (Normodyne -) 200 mg PO TID [facility] Last Admin: 03/11/17 06:47 Dose: 200 mg Magnesium Oxide (Mag-Ox -) 400 mg PO BID [facility] Last Admin: 03/11/17 10:02 Dose: 400 mg Metformin HCl (Glucophage -) 1,000 mg PO BID@0700,1630 [facility] Last Admin: 03/11/17 10:02 Dose: 1,000 mg Timolol Maleate (Timoptic 0.25%) 1 drop OU BID [facility] Last Admin: 03/11/17 10:06 Dose: 1 drop Valsartan (Diovan -) 320 mg PO DAILY [facility] Last Admin: 03/11/17 10:01 Dose: 320 mg Verapamil HCl (Calan Sr -) 240 mg PO BID [facility] Last Admin: 03/11/17 10:02 Dose: 240 mg Warfarin Sodium (Coumadin -) 2 mg PO DAILY@1800 [facility] Vital Signs - 24 hr 03/10/17 03/10/17 03/10/17 13:48 17:23 21:00 Temperature 99.1 F 98.6 F 98.0 F Pulse Rate 99 H 72 110 H Respiratory 20 18 20 Rate Blood Pressure 137/71 163/77 160/78 O2 Sat by Pulse 93 L Oximetry (%) 03/11/17 03/11/17 03/11/17 02:00 06:00 10:05 Temperature 97.6 F 97.9 F 97.7 F Pulse Rate 95 H 96 H 75 Respiratory 20 20 20 Rate Blood Pressure 148/89 146/92 166/63 O2 Sat by Pulse Oximetry (%) Intake & Output 03/09/17 03/10/17 03/11/17 03/12/17 07:59 07:59 07:59 07:59 Intake Total 320 390 Balance 320 390 Weight 140 lb 160 lb 0.002 oz 165 lb 6.4 oz Constitutional: Yes: Well Nourished, No Distress Eyes: No: Sclera Icterus HENT: No: Nasal Congestion Neck: No: Decreased ROM Respiratory: Yes: CTA Bilaterally. No: Accessory Muscle Use, Rales, Wheezes Gastrointestinal: Yes: Normal Bowel Sounds. No: Distention, Hepatomegaly, Palpable Mass, Tenderness Cardiovascular: Yes: Regular Rate and Rhythm JVD: Yes Carotid Bruit: No PMI: Non-Displaced Heart Sounds: Yes: S1, S2. No: Gallop Murmur: No: Systolic Murmur, Diastolic Murmur Musculoskeletal: Yes: Other (No kyphosis) Extremities: No: Cold, Cyanosis Edema: trace Peripheral Pulses: 2+ Left Carotid, 2+ Right Carotid, 2+ Left Doralis Pedis, 2+ Right Dorsalis Pedis Integumentary: No: Jaundice Neurological: Yes: Alert, Oriented (x3) Psychiatric: No: Agitated - Other Data Labs, Other Data: CBC, BMP 03/11/17 06:40 03/11/17 06:40 Laboratory Tests 11/19/16 03/11/17 03/11/17 06:00 06:40 10:15 INR 2.22 H Magnesium 1.6 L Digoxin 1.1481 tele: AF rate controlled. occ pvc. 1 ventricular triplet Imaging - Results Chest X-ray: Report Reviewed Assessment/Plan CXR: no chf, consolidation, effusions repeat cxr 03/11: improved aeration. EKG 03/09/17: afib; normal axis/intervals; PRWP; diffuse nonsp ST-Ts--no change vs prior 11/18 Echo [facility] 12/2015: normal LV/RV. 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 inadvertently sent home on labetalol 100 bid per d/c summary note) -bp responded to meds administered in ED (lasix, labetalol 100, ativan) -climbing again this am though much better than on DOA -pt uncertain of details of bp readings but states was overall controlled until recently when spiking often, ? how high--attributes this to psychosocial family stressors -pt reluctant to change meds in past, per dr mcgee notes -03/10 changed losartan (100mg qd) to valsartan (320mg qd) for better potency and consistent 24 hr drug levels (favor change to olmesartan as outpt--not of formulary here), changed labetalol 300 bid (11/18 hospital dose) to 200 TID, for better consistent drug levels, added chlorthalidone given volume up. Also s/p lasix IV 40 mg x 1 (refused pm dose). consider add low dose (0.1mg) clonidine patch (for consistent 24 hr drug levels), given fluctuating bp history--yoanna if need to change labetalol to alternate BB for HR control - 03/11: cxr significantly improved today. close to prior d/c weight. received 40 mg IV lasix today, patient declining further IV dosing. will d/c IV lasix and chlorthalidone and resume home po lasix dosing has been prescribed 80 mg daily in the past but often only takes 60 mg. will resume 80 mg daily dosing and monitor. -needs closer outpt cardio f/u after discharge atyp CP, sob: - suspect chest heaviness and sob were HTN sx. possibly mild chf -CXR with improved aeration s/p IV lasix. -BNP 900, from 3K in 11/18 -trop negative x 2. no isch ecg changes--defer stress testing, as cp has completely resolved with bp control. observe Afib: -pt has been consistently reluctant to change bp or AF meds with dr mcgee in past -HRs mildly rapid here -per ER home meds list, she is on high dose verap (240 bid), labetalol (100 bid) , digoxin -was on labetalol 300 bid when last seen by us 11/18--changed to 200 TID here for more reliable drug levels (as above) -dig held when seen by us 11/18 (level 2.0)--per dr chapa, HR responded to this overnight when given 0.25mg IVP dose, level good on admit here -03/10 will d/c digoxin for now given advanced age and polypharmacy--observe HRs on current verap and labetalol regimen -pt previously required labetalol for BP control, hence will not switch to metoprolol which is better for HR control (can consider propranolol later if HRs remain uncontrolled, which is better for HR control and often has better BP efficacy than metoprolol) -CHADS VASC 5, has been maintained on AC (prior hemorrhagic CVA was sec to uncontrolled HTN--cont same with aggressive BP control as doing - 03/11: improved rate control. acute on chronic diast CHF: -well compensated with stable weight on lasix [address] mcgee in office, though felt to be volume up on this regimen (pt unwillingness to titrate diuretics further) -d/c wt 166 in 11/18 (from 170 peak) -suspect JVD on exam though tds due to habitus (short neck) - received 60 mg IV and 40 mg IV 03/09 and then 40 mg IV x 1 today (03/10) and yesterday. -03/11: transitioning to po lasix as mentioned above. mitral regurgitation/mild as: -reported as moderate to severe on echo here 11/18 -will rpt echo as outpatient once pt well diuresed. patient has previously declined invasive interventions and again reiterates that wish.
[2017-03-11] MEDS ORDERED: WARFARIN NA 2 MG TABLET (UD) PO SCH (18:00)
[2017-03-12 01:56] VITALS: TEMP 98.1
[2017-03-12] MEDS: ACETAMINOPHEN 500 MG TABLET (FP) PO PRN ×2 (02:59→13:39)
[2017-03-12] MEDS: LABETALOL HCL 100 MG TABLET (FP) PO SCH ×2 (06:40→13:39)
[2017-03-12] MEDS: INSULIN DETEMIR 100 UNITS/ML MDV SQ SCH (06:52)
[2017-03-12] MEDS: metFORMIN HCL 500 MG TABLET (FP) PO SCH (06:52)
[2017-03-12 08:03] LABS: MCH 27.6 pg (25.7-33.7); MCHC 31.5 g/dl (32.0-36.0); MEAN CELL VOLUME 87.8 fl (80-96); MEAN PLT VOLUME 7.2 fl (7.5-11.1); PLATELET COUNT 275 K/MM3 (134-434); RDW 15.5 % (11.6-15.6); WHITE BLOOD COUNT 8.8 K/mm3 (4.0-10.0)
[2017-03-12 08:23] LABS: ANION GAP 7 (8-16); CALCIUM 8.7 mg/dL (8.5-10.1); CO2 30 mmol/L (21-32); CREATININE 0.8 mg/dL (0.55-1.02); GLUCOSE,RANDOM 163 mg/dL (74-106); MAGNESIUM 2.3 mg/dL (1.8-2.4)
--- NOTE | 2017-03-12 08:43 | PN ---
Progress Note (short form) - Note Progress Note: kate seen and examined in room had "good night last night " does not want monitor ( too heavy) / more comfortable all meds now PO telemetry mary ann to 45-49 asymptomatic improved HR off digoxin Vital Signs Period Temp Pulse Resp BP Sys/Lomas Pulse Ox Last 24 Hr 97.6 F-99.1 F 72-139 18-20 137-163/71-92 93 neck suppl e heart Irreg irreg lungs clear bilat abd soft / obese ext no calf tenderness / no edema CBC, BMP 03/11/17 06:40 03/11/17 06:40 CBC, BMP 03/12/17 07:47 03/12/17 07:47 CXR decreased marking telemetry a fib rates 50-90s cardiology notes reviewed and appreciated Active Medications Acetaminophen (Tylenol -) 1,000 mg PO Q6H PRN PRN Reason: FEVER OR PAIN Last Admin: 03/12/17 02:59 Dose: 1,000 mg Furosemide (Lasix -) 80 mg PO DAILY [facility] Insulin Detemir (Levemir Vial) 15 units SQ BID@0700,2200 [facility] Last Admin: 03/12/17 06:52 Dose: 15 units Labetalol HCl (Normodyne -) 200 mg PO TID [facility] Last Admin: 03/12/17 06:40 Dose: Not Given Magnesium Oxide (Mag-Ox -) 400 mg PO BID [facility] Last Admin: 03/11/17 21:00 Dose: 400 mg Metformin HCl (Glucophage -) 1,000 mg PO BID@0700,1630 [facility] Last Admin: 03/12/17 06:52 Dose: 1,000 mg Timolol Maleate (Timoptic 0.25%) 1 drop OU BID [facility] Last Admin: 03/11/17 21:04 Dose: 1 drop Valsartan (Diovan -) 320 mg PO DAILY [facility] Last Admin: 03/11/17 10:01 Dose: 320 mg Verapamil HCl (Calan Sr -) 240 mg PO BID [facility] Last Admin: 03/11/17 21:00 Dose: 240 mg Warfarin Sodium (Coumadin -) 2 mg PO DAILY@1800 [facility] Last Admin: 03/11/17 17:44 Dose: 2 mg ASSMT/ Plans # uncontrolled HTN HTN urgency she relays hx of CVA in the past due to high blood pressure doesn't seem to concerned about current admission / unclear if compliant with meds at home had extensive discussion regarding quality of life -- another CVA could significantly compromise her quality she seems to be agreeable to adhere to medication regimine # chest pain / dyspnea / CHF due to HTN urgency / ischemic event ? follow cardiac enzymes / Monitor BP / EKG mildly elevated BMP ? due to HTN #A. Fib poor rate control on Coumadin -- follow INR ?? compliance discussed with Dr Payne -- apparently doses from time of last d/c and office visit are different than dose reported at ER # electolyte abn rep[lace as needed K / Mg # discharge planning to [facility] current PO meds discussed with patient and aide -- she resides in assisted living Problem List - Problems (1) Atrial fibrillation Code(s): I48.91 - UNSPECIFIED ATRIAL FIBRILLATION Qualifiers: Atrial fibrillation type: chronic Qualified Code(s): I48.2 - Chronic atrial fibrillation (2) CHF (congestive heart failure) Code(s): I50.9 - HEART FAILURE, UNSPECIFIED Qualifiers: Congestive heart failure type: unspecified congestive heart failure type Congestive heart failure chronicity: acute on chronic Qualified Code(s ): I50.9 - Heart failure, unspecified (3) HTN (hypertension) Code(s): I10 - ESSENTIAL (PRIMARY) HYPERTENSION Qualifiers: Hypertension type: unspecified Qualified Code(s): I10 - Essential ( primary) hypertension (4) Diabetes Code(s): E11.9 - TYPE 2 DIABETES MELLITUS WITHOUT COMPLICATIONS
[2017-03-12 08:44] LABS: INR 2.17 (0.82-1.09); PROTHROMBIN TIME (PATIENT) 24.3 SEC (9.98-11.88)
[2017-03-12] MEDS: VERAPAMIL HCL 240 MG E.R. TABLET (FP) PO SCH (09:42)
[2017-03-12] MEDS: VALSARTAN 160 MG TABLET (UD) PO SCH (09:42)
[2017-03-12] MEDS: MAGNESIUM OXIDE 400 MG TABLET (FP) PO SCH (09:42)
[2017-03-12] MEDS: TIMOLOL 0.25% OPHTHALMIC SOL 5 ML BOTTLE OU SCH (09:43)
[2017-03-12] MEDS ORDERED: FUROSEMIDE 40 MG TABLET (FP) PO SCH (10:00)
--- NOTE | 2017-03-12 10:55 | PN ---
Progress Note (short form) - Note Progress Note: Chief Complaint: HTN/cp S: states breathing back to baseline. no cp palps dizzy sob Current Medications Generic Name Dose Route Start Last Admin Trade Name Robert PRN Reason Stop Dose Admin Acetaminophen 1,000 mg 03/09/17 20:58 03/12/17 02:59 Tylenol - PO 1,000 mg Q6H PRN Administration FEVER OR PAIN Furosemide 80 mg 03/12/17 10:00 03/12/17 09:42 Lasix - PO 80 mg DAILY SHERYL Administration Insulin Detemir 15 units 03/09/17 22:00 03/12/17 06:52 Levemir Vial SQ 15 units BID@0700,2200 SHERYL Administration Labetalol HCl 200 mg 03/10/17 14:00 03/12/17 06:40 Normodyne - PO Not Given TID [facility] Magnesium Oxide 400 mg 03/09/17 22:00 03/12/17 09:42 Mag-Ox - PO 400 mg BID SHERYL Administration Metformin HCl 1,000 mg 03/10/17 07:00 03/12/17 06:52 Glucophage - PO 1,000 mg BID@0700,1630 SHERYL Administration Timolol Maleate 1 drop 03/10/17 11:30 03/12/17 09:43 Timoptic 0.25% OU 1 drop BID SHERYL Administration Valsartan 320 mg 03/10/17 10:00 03/12/17 09:42 Diovan - PO 320 mg DAILY SHERYL Administration Verapamil HCl 240 mg 03/10/17 10:00 03/12/17 09:42 Calan Sr - PO 240 mg BID SHERYL Administration Warfarin Sodium 2 mg 03/11/17 18:00 03/11/17 17:44 Coumadin - PO 2 mg DAILY@1800 SHERYL Administration Vital Signs Period Temp Pulse Resp BP Sys/Lomas Pulse Ox Last 24 Hr 98.0 F-98.2 F 55-105 18-20 123-164/74-92 93-94 Constitutional: Yes: Well Nourished, No Distress Eyes: No: Sclera Icterus Respiratory: Yes: CTA Bilaterally. No: Accessory Muscle Use, Rales, Wheezes Gastrointestinal: Yes: Normal Bowel Sounds. No: Distention, Hepatomegaly, Palpable Mass, Tenderness Cardiovascular: Yes: Regular Rate and Rhythm Heart Sounds: Yes: S1, S2. No: Gallop Murmur: No: Systolic Murmur, Diastolic Murmur Extremities: No: Cold, Cyanosis Edema: no le edema Integumentary: No: Jaundice diaphoresis Neurological: Yes: Alert, Oriented (x3) Psychiatric: No: Agitated - Other Data Labs, Other Data: CBC, BMP 03/12/17 07:47 03/12/17 07:47 tele: AF rate controlled. Imaging - Results Chest X-ray: Report Reviewed CXR: no chf, consolidation, effusions repeat cxr 03/11: improved aeration. EKG 03/09/17: afib; normal axis/intervals; PRWP; diffuse nonsp ST-Ts--no change vs prior 11/18 Echo [facility] 12/2015: normal LV/RV. 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 inadvertently sent home on labetalol 100 bid per d/c summary note) -bp responded to meds administered in ED (lasix, labetalol 100, ativan) -climbing again this am though much better than on DOA -pt uncertain of details of bp readings but states was overall controlled until recently when spiking often, ? how high--attributes this to psychosocial family stressors -pt reluctant to change meds in past, per dr mcgee notes -03/10 changed losartan (100mg qd) to valsartan (320mg qd) for better potency and consistent 24 hr drug levels (favor change to olmesartan as outpt--not of formulary here), changed labetalol 300 bid (11/18 hospital dose) to 200 TID, for better consistent drug levels, added chlorthalidone given volume up. Also s/p lasix IV 40 mg x 1 (refused pm dose). consider add low dose (0.1mg) clonidine patch (for consistent 24 hr drug levels), given fluctuating bp history--yoanna if need to change labetalol to alternate BB for HR control - 03/11: cxr significantly improved today. close to prior d/c weight. received 40 mg IV lasix today, patient declining further IV dosing. will d/c IV lasix and chlorthalidone and resume home po lasix dosing has been prescribed 80 mg daily in the past but often only takes 60 mg. will resume 80 mg daily dosing and monitor. -03/12-cont po lasix -needs closer outpt cardio f/u after discharge atyp CP, sob: - suspect chest heaviness and sob were HTN sx. possibly mild chf -CXR with improved aeration s/p IV lasix. -BNP 900, from 3K in 11/18 -trop negative x 2. no isch ecg changes--defer stress testing, as cp has completely resolved with bp control. observe Afib: -pt has been consistently reluctant to change bp or AF meds with dr mcgee in past -HRs mildly rapid here -per ER home meds list, she is on high dose verap (240 bid), labetalol (100 bid) , digoxin -was on labetalol 300 bid when last seen by us 11/18--changed to 200 TID here for more reliable drug levels (as above) -dig held when seen by us 11/18 (level 2.0)--per dr chapa, HR responded to this overnight when given 0.25mg IVP dose, level good on admit here -03/10 will d/c digoxin for now given advanced age and polypharmacy--observe HRs on current verap and labetalol regimen -pt previously required labetalol for BP control, hence will not switch to metoprolol which is better for HR control (can consider propranolol later if HRs remain uncontrolled, which is better for HR control and often has better BP efficacy than metoprolol) -CHADS VASC 5, has been maintained on AC (prior hemorrhagic CVA was sec to uncontrolled HTN--cont same with aggressive BP control as doing - 03/11-: improved rate control. acute on chronic diast CHF: -well compensated with stable weight on lasix [address] mcgee in office, though felt to be volume up on this regimen (pt unwillingness to titrate diuretics further) -d/c wt 166 in 11/18 (from 170 peak) -suspect JVD on exam though tds due to habitus (short neck) - received 60 mg IV and 40 mg IV 03/09 and then 40 mg IV x 1 today (03/10) and yesterday. -03/11: transitioning to po lasix as mentioned above. -03/12: stable volume, cont po lasix mitral regurgitation/mild as: -reported as moderate to severe on echo here 11/18 -will rpt echo as outpatient once pt well diuresed. patient has previously declined invasive interventions and again reiterates that wish. cardiac alatorre stable for dc
[2017-03-12 13:44] VITALS: BP 131/62; PULSE 71
== END 2017-03-12 14:48 | disposition home or self-care (01) | DRG 304 ==
LOC: JER 07:13 → JERBED 11:32 → J4S 03-10 01:16
PROVIDERS: ADMIT Family Medicine; ATTEND Family Medicine
DX: I16.0 Hypertensive urgency (principal); I50.33 Acute on chronic diastolic (congestive) heart failure; H40.89 Other specified glaucoma; I25.10 Atherosclerotic heart disease of native coronary artery without angina pectoris; K57.90 Diverticulosis of intestine, part unspecified, without perforation or abscess without bleeding; K63.5 Polyp of colon; E11.65 Type 2 diabetes mellitus with hyperglycemia; I08.0 Rheumatic disorders of both mitral and aortic valves; D49.89 Neoplasm of unspecified behavior of other specified sites; E78.00 Pure hypercholesterolemia, unspecified; K76.0 Fatty (change of) liver, not elsewhere classified; I48.2 Chronic atrial fibrillation; E66.8 Other obesity; Z68.32 Body mass index [BMI] 32.0-32.9, adult; I11.0 Hypertensive heart disease with heart failure; E87.8 Other disorders of electrolyte and fluid balance, not elsewhere classified; R07.89 Other chest pain; F41.8 Other specified anxiety disorders; Z79.4 Long term (current) use of insulin; Z86.73 Personal history of transient ischemic attack (TIA), and cerebral infarction without residual deficits
CPT/HCPCS: 36415; 71010-TC; 80048; 80053; 80061; 80162; 83721; 83735; 83880; 84484; 85025; 85027; 85610; 93005; 93010; 99285-25; J1644

== ENCOUNTER 2017-03-13 05:15 | Observation (INO) | payer OTHER, BC ==
[2017-03-13] MEDS ORDERED: ACETAMINOPHEN 500 MG TABLET (FP) PO ONE (05:23)
--- NOTE | 2017-03-13 05:24 | PDOC ---
History of Present Illness - General Chief Complaint: Injury Stated Complaint: FALL Time Seen by Provider: 03/13/17 05:18 - History of Present Illness Initial Comments: 03/13/17 05:29 86F on Coumadin with dm2 presents to the ED after a unwitnessed fall from her bed on her left shoulder (about a meter high) and hitting her head on the carpet. She can't sit up without feeling extreme pain radiating through her left shoulder. She currently has to keep her cervical and thoracic spine flexed , She is a resident of [facility]. Patient denies LOC, dizziness, change in mental status., n/v/d, change in hearing or vision. 03/13/17 05:43 03/13/17 05:49 Past History - Past Medical History Allergies/Adverse Reactions: Allergies Allergy/AdvReac Type Severity Reaction Status Date / Time clindamycin Allergy Verified 03/13/17 05:17 Penicillins AdvReac Verified 03/13/17 05:17 Home Medications: Ambulatory Orders Metformin HCl [Glucophage -] 1,000 mg PO BID 12/12/15 Timolol 0.25% [Timoptic 0.25%] 5 ml OU DAILY 12/12/15 Insulin (Levemir) [Levemir Vial] 15 units SQ BID@0700,2200 ml 11/22/16 Insulin Sliding Scale [Novolog Vial Sliding Scale -] 1 vial SQ ACHS units 11/22 Warfarin Na [Coumadin -] 2 mg PO DAILY@1800 tablet 11/22/16 Acetaminophen [Tylenol .Regular Strength -] 1,000 mg PO HS 03/09/17 Biotin 1,000 mcg PO DAILY 03/09/17 Cholecalciferol (Vitamin D3) [Vitamin D3 -] 1,000 unit PO DAILY 03/09/17 Magnesium Oxide [Mag-Ox -] 400 mg PO BID 03/09/17 Multivitamin with Iron [Daily Shanell with Iron] 1 each PO DAILY 03/09/17 Acetaminophen [Tylenol .Extra-Strength -] 1,000 mg PO Q6H PRN #0 tablet Furosemide [Lasix -] 80 mg PO DAILY #30 tablet 03/12/17 Insulin (Levemir) [Levemir Vial] 15 units SQ BID@0700,2200 ml 03/12/17 Labetalol HCl [Normodyne -] 200 mg PO TID #90 tablet 03/12/17 Magnesium Oxide [Mag-Ox -] 400 mg PO BID tablet 03/12/17 Metformin HCl [Glucophage -] 1,000 mg PO BID@0700,1630 tablet 03/12/17 Valsartan [Diovan] 320 mg PO DAILY #30 tablet 03/12/17 Warfarin Na [Coumadin -] 2 mg PO DAILY@1800 tablet 03/12/17 Anemia: No Asthma: No Cancer: No Cardiac Disorders: Yes (atrial fibrillation, ASHD) CVA: Yes (03/2015) COPD: No CHF: Yes Dementia: No Diabetes: Yes GI Disorders: Yes (Diverticulosis, colon polyp, Pancreatic neoplasm) Disorders: No HTN: Yes Hypercholesterolemia: Yes Liver Disease: Yes (Fatty Liver) Suicide Attempt (Hx): No Seizures: No Thyroid Disease: No - Surgical History Appendectomy: No Cardiac Surgery: No Cholecystectomy: No Lung Surgery: No Neurologic Surgery: No Orthopedic Surgery: No - Immunization History Immunization Up to Date: No - Psycho/Social/Smoking Cessation Hx Anxiety: No Suicidal Ideation: No Smoking History: Never smoked Have you smoked in the past 12 months: No Number of Cigarettes Smoked Daily: 0 Hx Alcohol Use: No Drug/Substance Use Hx: No Substance Use Type: None Hx Substance Use Treatment: No Review of Systems - Review of Systems Constitutional: Yes: Symptoms Reported HEENTM: No: Symptoms Reported Respiratory: No: Symptoms reported Cardiac (ROS): No: Symptoms Reported ABD/GI: No: Symptoms Reported : No: Symptoms Reported Musculoskeletal: Yes: Joint Pain, Joint Swelling Integumentary: No: Symptoms Reported *Physical Exam - Physical Exam General Appearance: Yes: Nourished, Appropriately Dressed HEENT: positive: EOMI, ROSMERY, Normal ENT Inspection Neck: positive: Trachea midline. negative: Tender Respiratory/Chest: positive: Lungs Clear, Normal Breath Sounds. negative: Chest Tender Cardiovascular: positive: Regular Rhythm, Regular Rate, S1, S2 Extremity: positive: Normal Capillary Refill ED Treatment Course - LABORATORY CBC & Chemistry Diagram: 03/13/17 05:31 03/13/17 05:31 Medical Decision Making - Medical Decision Making 03/13/17 05:40 86F with pmh of dm2 on coumadin present after fall on head and left shoulder. Differential include labs negative. CT head and c-spine negative for bleed. L Shoulder X-ray shows fracture of the L humeral head. Dr. Amado spoke to Dr Avilez on the phone and it was decided to admit the patient. 03/13/17 05:49 03/13/17 06:56 *DC/Admit/Observation/Transfer Diagnosis at time of Disposition: Fracture of humeral head, left, closed Qualifiers: Encounter type: initial encounter Qualified Code(s): S42.292A - Other displaced fracture of upper end of left humerus, initial encounter for closed fracture
[2017-03-13] MEDS ORDERED: ACETAMINOPHEN 325 MG TABLET (FP) ONE (05:41)
[2017-03-13] MEDS ORDERED: ACETAMINOPHEN 325 MG TABLET (FP) PO ONE (05:42)
[2017-03-13 05:47] LABS: BASOPHIL 0.5 % (0-2.0); EOSINOPHIL 2.9 % (0-4.5); MCH 28.3 pg (25.7-33.7); MCHC 32.3 g/dl (32.0-36.0); MEAN CELL VOLUME 87.4 fl (80-96); MEAN PLT VOLUME 7.8 fl (7.5-11.1); NEUTROPHILS 80.1 % (42.8-82.8); PLATELET COUNT 295 K/MM3 (134-434); RDW 15.7 % (11.6-15.6); WHITE BLOOD COUNT 13.7 K/mm3 (4.0-10.0)
[2017-03-13 05:58] VITALS: BMI 32.1
[2017-03-13 06:05] LABS: INR 2.45 (0.82-1.09); PROTHROMBIN TIME (PATIENT) 27.4 SEC (9.98-11.88)
[2017-03-13 06:07] LABS: ACTIVATED PTT 35.7 SECONDS (26.9-34.4)
--- NOTE | 2017-03-13 06:12 | PDOC ---
Attending Attestation - HPI HPI: The patient is an 86 yo F with a past medical history significant for A-fib (on warfarin, digoxin), IDDM (on metformin, humalog, levemir), CHF, HTN (on Lasix, losartan, labetalol, verapamil), and glaucoma who was discharged from [facility] yesterday who presents s/p mechanical fall out of bed. The patient states she hit her L shoulder first on the floor followed by her head. The patient denies LOC. The patient denies nausea, vomiting, diarrhea and abdominal pain. The patient denies changes in vision. The patient denies chest pain, palpitations and lightheadedness. PCP: Dr. Villa - Medical Decision Making Documentation prepared by Daniela Montelongo, acting as senior medical transcriptionist for Nikos Diaz MD/. <Daniela Montelongo - Last Filed: 03/13/17 06:12> - Resident Resident Name: Molina Esquivel - ED Attending Attestation I have performed the following: I have examined & evaluated the patient, The case was reviewed & discussed with the resident, I agree w/resident's findings & plan, Exceptions are as noted - HPI HPI: 03/17/17 19:37 Pt is s/p fall. Unwitness - Physicial Exam PE: 03/17/17 19:35 *Physical Exam General Appearance: Yes: Appropriately Dressed. No: Apparent Distress, Intoxicated HEENT: positive: EOMI, ROSMERY, Normal ENT Inspection, Normal Voice, TMs Normal, Pharynx Normal. negative: Pale Conjunctivae, Photophobia, Scleral Icterus (R), Scleral Icterus (L) Neck: positive: Trachea midline, Normal Thyroid, Supple. negative: Tender, Rigid, Carotid bruit, Stridor, Lymphadenopathy (R), Lymphadenopathy (L), Thyromegaly Respiratory/Chest: positive: Lungs Clear, Normal Breath Sounds. negative: Chest Tender, Respiratory Distress, Accessory Muscle Use, Labored Respiration, RES, Crackles, Rales, Rhonchi, Stridor, Wheezing, Dullness Cardiovascular: positive: Regular Rhythm, Regular Rate, S1, S2. negative: Edema , JVD, Murmur, Bradycardia, Tachycardia Vascular Pulses: Dorsalis-Pedis (R): 2+, Doralis-Pedis (L): 2+ Gastrointestinal/Abdominal: positive: Normal Bowel Sounds, Flat, Soft. negative : Tender, Organomegaly, Pulsatile Mass, Increased Bowel Sounds, Decreased BS, Distended, Guarding, Rebound, Hernia, Hepatomegaly, Spleenomegaly Lymphatic: negative: Adenopathy, Tenderness Musculoskeletal: positive: deformity of left shoulder humeral region. negative : CVA Tenderness, Decreased Range of Motion Extremity: positive: Normal Capillary Refill, Normal Inspection, Normal Range of Motion, Pelvis Stable. negative: Tender, Pedal Edema, Swelling, Erythema Integumentary: positive: Normal Color, Dry, Warm. 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 negative: EOM Palsy, Facial Droop, Sensory Deficit <Nikos Diaz - Last Filed: 03/17/17 19:37> Discharge Disposition <Daniela Montelongo - Last Filed: 03/13/17 06:12> - Discharge Dispostion Admit: Yes <Nikos Diaz - Last Filed: 03/17/17 19:37> - Diagnosis Fracture of humeral head, left, closed Qualifiers: Encounter type: initial encounter Qualified Code(s): S42.292A - Other displaced fracture of upper end of left humerus, initial encounter for closed fracture - Discharge Dispostion Disposition: HALF-WAY FACILITY
[2017-03-13] MEDS ORDERED: FUROSEMIDE 40 MG TABLET (FP) PO ONE (07:02)
[2017-03-13] MEDS ORDERED: LABETALOL HCL 200 MG TABLET (FP) PO ONE (07:03)
[2017-03-13] MEDS ORDERED: VALSARTAN 160 MG TABLET (UD) PO ONE (07:03)
[2017-03-13 07:05] LABS: ALBUMIN 3.7 g/dl (3.4-5.0); ANION GAP 9 (8-16); BILIRUBIN,TOTAL 0.5 mg/dL (0.2-1.0); CO2 28 mmol/L (21-32); GLUCOSE,RANDOM 202 mg/dL (74-106); SGOT/AST 17 U/L (15-37); SGPT/ALT 26 U/L (12-78)
[2017-03-13 07:06] LABS: ALK PHOS 61 U/L (45-117)
[2017-03-13] MEDS ORDERED: VERAPAMIL HCL 120 MG TABLET PO ONE (07:07)
[2017-03-13] MEDS: VALSARTAN 160 MG TABLET (UD) PO SCH (09:28)
[2017-03-13] MEDS: FUROSEMIDE 40 MG TABLET (FP) PO SCH (09:28)
[2017-03-13] MEDS: VERAPAMIL HCL 120 MG TABLET PO SCH ×2 (09:29→21:15)
--- NOTE | 2017-03-13 09:29 | CON.ORTH ---
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 Children do not live locally.) History of Recent Travel: No Home Medications - Allergies Allergies/Adverse Reactions: Allergies Allergy/AdvReac Type Severity Reaction Status Date / Time clindamycin Allergy Verified 03/13/17 05:17 Penicillins AdvReac Verified 03/13/17 05:17 - Home Medications Home Medications: Ambulatory Orders Timolol 0.25% [Timoptic 0.25%] 5 ml OU DAILY 12/12/15 Insulin Sliding Scale [Novolog Vial Sliding Scale -] 1 vial SQ ACHS units 11/22 Acetaminophen [Tylenol .Extra-Strength -] 1,000 mg PO Q6H PRN #0 tablet Furosemide [Lasix -] 80 mg PO DAILY #30 tablet 03/12/17 Labetalol HCl [Normodyne -] 200 mg PO TID #90 tablet 03/12/17 Magnesium Oxide [Mag-Ox -] 400 mg PO BID tablet 03/12/17 Valsartan [Diovan] 320 mg PO DAILY #30 tablet 03/12/17 Insulin (Levemir) [Levemir Vial] 15 units SQ BID 03/13/17 Metformin HCl [Glucophage -] 1,000 mg PO BID 03/13/17 Verapamil HCl [Verelan] 240 mg PO BID 03/13/17 Warfarin Na [Coumadin -] 2 mg PO DAILY 03/13/17 Family Disease History - Family Disease History Family Disease History: Heart Disease: Father, Other: Mother (TIAs, lived to 90) Physical Exam for Ortho Vital Signs: Vital Signs Temperature 97.7 F 03/13/17 09:05 Pulse Rate 113 H 03/13/17 09:05 Respiratory Rate 20 03/13/17 09:05 Blood Pressure 159/89 03/13/17 09:05 O2 Sat by Pulse Oximetry (%) 98 03/13/17 07:57 Constitutional: Yes: Well Nourished, No Distress Labs: INR, PTT INR 2.45 (0.82-1.09) H 03/13/17 05:31 - Upper Extremity Shoulder: Yes: Left, Limited ROM, Pain, Swelling, Tenderness, Other (nvi) Imaging - Results X-ray: Report Reviewed, Image Reviewed Assessment/Plan 86 yo F with a past medical history significant for A-fib (on warfarin, digoxin) , IDDM (on metformin, humalog, levemir), CHF, HTN (on Lasix, losartan, labetalol , verapamil), and glaucoma who was discharged from [place] yesterday who presents s/p mechanical fall out of bed. The patient states she hit her L shoulder first on the floor followed by her head. The patient denies LOC. The patient denies nausea, vomiting, diarrhea and abdominal pain. The patient denies changes in vision. The patient denies chest pain, palpitations and lightheadedness. a/p- left proximal humerus fx No surgery necessary sling for immobilization elevate hob to 60 degrees will follow d/w Dr. Lewis
[2017-03-13] MEDS ORDERED: PT OWN MED DRAWER 7, Y5N ONE (10:52)
[2017-03-13] MEDS: LABETALOL HCL 200 MG TABLET (FP) PO SCH ×2 (14:10→21:15)
[2017-03-13] MEDS: TIMOLOL 0.25% OPHTHALMIC SOL 5 ML BOTTLE OU SCH ×2 (14:10→21:16)
--- NOTE | 2017-03-13 15:30 | EKG ---
Test Reason : Blood Pressure : / mmHG Vent. Rate : 090 BPM Atrial Rate : 061 BPM P-R Int : 000 ms QRS Dur : 086 ms QT Int : 350 ms P-R-T Axes : 000 -30 153 degrees QTc Int : 428 ms ATRIAL FIBRILLATION LEFT AXIS DEVIATION POSSIBLE ANTERIOR INFARCT , AGE UNDETERMINED ABNORMAL ECG WHEN COMPARED WITH ECG OF 10-MAR-2017 09:16, T WAVE INVERSION NO LONGER EVIDENT IN INFERIOR LEADS T WAVE INVERSION NO LONGER EVIDENT IN LATERAL LEADS Confirmed by ARISTEO DORANTES MD ([id number]) on 03/13/2017 3:29:49 PM Referred By: Confirmed By:ARISTEO DORANTES MD
[2017-03-13] MEDS: metFORMIN HCL 500 MG TABLET (FP) PO SCH (16:10)
[2017-03-13] MEDS: ACETAMINOPHEN 325 MG TABLET (FP) PO PRN ×2 (16:10→21:26)
[2017-03-13] MEDS: INSULIN SLIDING SCALE (NOVOLOG) 1 VIAL SQ SCH ×2 (17:43→21:17)
[2017-03-13] MEDS ORDERED: WARFARIN NA 2 MG TABLET (UD) PO ONE (18:00)
[2017-03-13] MEDS: INSULIN DETEMIR 100 UNITS/ML MDV SQ SCH (21:14)
[2017-03-13] MEDS ORDERED: INSULIN (NOVOLOG) ASPART 100 UNITS/ML 10ML VIAL ONE (21:17)
[2017-03-14] MEDS: INSULIN SLIDING SCALE (NOVOLOG) 1 VIAL SQ SCH ×3 (06:14→16:27)
[2017-03-14] MEDS: INSULIN DETEMIR 100 UNITS/ML MDV SQ SCH (06:36)
[2017-03-14] MEDS: LABETALOL HCL 200 MG TABLET (FP) PO SCH ×2 (06:38→14:27)
[2017-03-14] MEDS: metFORMIN HCL 500 MG TABLET (FP) PO SCH ×2 (06:38→16:27)
[2017-03-14] MEDS: ACETAMINOPHEN 325 MG TABLET (FP) PO PRN ×2 (06:46→16:30)
[2017-03-14 07:21] LABS: ANION GAP 10 (8-16); CALCIUM 8.7 mg/dL (8.5-10.1); CO2 30 mmol/L (21-32); CREATININE 0.7 mg/dL (0.55-1.02); GLUCOSE,RANDOM 159 mg/dL (74-106)
[2017-03-14 07:22] LABS: INR 2.94 (0.82-1.09); PROTHROMBIN TIME (PATIENT) 33.1 SEC (9.98-11.88)
[2017-03-14 07:28] LABS: BASOPHIL 0.4 % (0-2.0); MCH 27.4 pg (25.7-33.7); MCHC 31.4 g/dl (32.0-36.0); MEAN CELL VOLUME 87.3 fl (80-96); MEAN PLT VOLUME 7.3 fl (7.5-11.1); NEUTROPHILS 75.9 % (42.8-82.8); PLATELET COUNT 250 K/MM3 (134-434); WHITE BLOOD COUNT 12.2 K/mm3 (4.0-10.0)
--- NOTE | 2017-03-14 08:18 | HP ---
Admitting History and Physical - Admission Chief Complaint: I fell from the bed History of Present Illness: 86F with CAD / afib / CHF / CVA who was discharged from [facility] yesterday, was in stable condition fell from her bed and resulted in left humeral head fx. She was transfered to ER this am. He is on Coumadin presents to the ED after a unwitnessed fall from her bed on her left shoulder (about a meter high) and hitting her head on the carpet. She can't sit up without feeling extreme pain radiating through her left shoulder. She currently has to keep her cervical and thoracic spine flexed, She is a resident of [facility]. Patient denies LOC, dizziness, change in mental status., n/v/d, change in hearing or vision. History Source: Patient, Medical Record Limitations to Obtaining History: No Limitations - Past Medical History Cardiovascular: Yes: AFIB, CHF, HTN Reproductive: Yes: Postmenopausal ...: No Psych: Yes: Anxiety Endocrine: Yes: Diabetes Mellitus - Past Surgical History Past Surgical History: Yes: Hysterectomy - Smoking History Smoking history: Never smoked Have you smoked in the past 12 months: No Aproximately how many cigarettes per day: 0 - Alcohol/Substance Use Hx Alcohol Use: No History of Substance Use: reports: None - Social History 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 Children do not live locally.) History of Recent Travel: No Home Medications - Allergies Allergies/Adverse Reactions: Allergies Allergy/AdvReac Type Severity Reaction Status Date / Time clindamycin Allergy Verified 03/13/17 05:17 Penicillins AdvReac Verified 03/13/17 05:17 - Home Medications Home Medications: Ambulatory Orders Timolol 0.25% [Timoptic 0.25%] 5 ml OU DAILY 12/12/15 Insulin Sliding Scale [Novolog Vial Sliding Scale -] 1 vial SQ ACHS units 11/22 Acetaminophen [Tylenol .Extra-Strength -] 1,000 mg PO Q6H PRN #0 tablet Furosemide [Lasix -] 80 mg PO DAILY #30 tablet 03/12/17 Labetalol HCl [Normodyne -] 200 mg PO TID #90 tablet 03/12/17 Magnesium Oxide [Mag-Ox -] 400 mg PO BID tablet 03/12/17 Valsartan [Diovan] 320 mg PO DAILY #30 tablet 03/12/17 Insulin (Levemir) [Levemir Vial] 15 units SQ BID 03/13/17 Metformin HCl [Glucophage -] 1,000 mg PO BID 03/13/17 Verapamil HCl [Verelan] 240 mg PO BID 03/13/17 Warfarin Na [Coumadin -] 2 mg PO DAILY 03/13/17 Family Disease History - Family Disease History Family Disease History: Heart Disease: Father, Other: Mother (TIAs, lived to 90) Review of Systems - Review of Systems Constitutional: reports: No Symptoms Eyes: reports: No Symptoms HENT: reports: No Symptoms Neck: reports: No Symptoms Cardiovascular: reports: No Symptoms Respiratory: reports: No Symptoms Gastrointestinal: reports: No Symptoms Genitourinary: reports: No Symptoms Breasts: reports: No Symptoms Reported Musculoskeletal: reports: No Symptoms Integumentary: reports: No Symptoms Neurological: reports: No Symptoms Endocrine: reports: No Symptoms Hematology/Lymphatic: reports: No Symptoms Psychiatric: reports: Anxiety Physical Examination Vital Signs: Vital Signs Temperature 98.6 F 03/14/17 05:40 Pulse Rate 60 03/14/17 05:40 Respiratory Rate 20 03/14/17 05:40 Blood Pressure 116/84 03/14/17 05:40 O2 Sat by Pulse Oximetry (%) 95 03/13/17 20:11 Constitutional: Yes: Well Nourished, Anxious Eyes: Yes: Conjunctiva Clear, EOM Intact HENT: Yes: Atraumatic, Normocephalic Neck: Yes: Supple, Trachea Midline Cardiovascular: Yes: Pulse Irregular Respiratory: Yes: CTA Bilaterally Gastrointestinal: Yes: Normal Bowel Sounds, Soft, Abdomen, Obese Renal/: Yes: WNL Breast(s): Yes: WNL Musculoskeletal: Yes: Muscle Pain Extremities: Yes: Other (no deformity / pain to all movement on left arm finger - full movement / warm to touch + pulses good cap refill) Labs: CBC, BMP 03/14/17 06:05 03/14/17 06:05 Problem List - Problems (1) Fracture of humeral head, left, closed Assessment/Plan: await ortho consult doubt surgical intervention will require greater level of care for return to assited living STR ? Code(s): S42.292A - [facility] DISP FX OF UPPER END OF LEFT HUMERUS, INIT FOR CLOS FX Qualifiers: Encounter type: initial encounter Qualified Code(s): S42.292A - Other displaced fracture of upper end of left humerus, initial encounter for closed fracture (2) CHF (congestive heart failure) Code(s): I50.9 - HEART FAILURE, UNSPECIFIED Qualifiers: Congestive heart failure type: unspecified congestive heart failure type Congestive heart failure chronicity: acute on chronic Qualified Code(s ): I50.9 - Heart failure, unspecified (3) Diabetes Code(s): E11.9 - TYPE 2 DIABETES MELLITUS WITHOUT COMPLICATIONS (4) HTN (hypertension) Code(s): I10 - ESSENTIAL (PRIMARY) HYPERTENSION Qualifiers: Hypertension type: unspecified Qualified Code(s): I10 - Essential ( primary) hypertension
--- NOTE | 2017-03-14 08:41 | PN ---
Progress Note (short form) - Note Progress Note: Ortho Pt seen and examined s/p left proximal humerus fx sling intact,+ swelling, + ttp, decr rom nvi a/p Continue immobilization with sling may move elbow, wrist and hand as tolerated elevate hob to 60 deg may d/c from ortho pov f/u in the office in 10-14 days d/w Dr. Lewis
--- NOTE | 2017-03-14 09:23 | PN ---
Progress Note (short form) - Note Progress Note: patient seen and examined in room c/o pain to Fx site sling in place arm warm / good rom to hand Vital Signs Period Temp Pulse Resp BP Sys/Lomas Pulse Ox Last 24 Hr 98.0 F-101.0 F 60-97 18-20 116-164/58-84 95-96 neck supple heart ireg lungs clear abd soft ext as above LUE LE no edema / no calf tenderness CBC, BMP 03/14/17 06:05 03/14/17 06:05 Active Medications Acetaminophen (Tylenol -) 650 mg PO Q6H PRN PRN Reason: PAIN Last Admin: 03/14/17 06:46 Dose: 650 mg Furosemide (Lasix -) 80 mg PO DAILY SHERYL Last Admin: 03/13/17 09:28 Dose: Not Given Insulin Aspart (Novolog Vial Sliding Scale -) 1 vial SQ ACHS SHERYL PRN Reason: Protocol Last Admin: 03/14/17 06:14 Dose: Not Given Insulin Detemir (Levemir Vial) 15 units SQ BID@0700,2200 [facility] Last Admin: 03/14/17 06:36 Dose: 15 units Labetalol HCl (Normodyne -) 200 mg PO TID [facility] Last Admin: 03/14/17 06:38 Dose: 200 mg Metformin HCl (Glucophage -) 1,000 mg PO BIDAC [facility] Last Admin: 03/14/17 06:38 Dose: 1,000 mg Timolol Maleate (Timoptic 0.25%) 1 drop OU BID [facility] Stop: 03/16/17 23:59 Last Admin: 03/13/17 21:16 Dose: 1 drop Valsartan (Diovan -) 320 mg PO DAILY [facility] Last Admin: 03/13/17 09:28 Dose: Not Given Verapamil HCl (Verapamil Hcl) 240 mg PO BID [facility] Last Admin: 03/13/17 21:15 Dose: 240 mg Problem List - Problems (1) Fracture of humeral head, left, closed Assessment/Plan: ortho consult appreciated no surgical intervention will require greater level of care for return to assited living STR arrangements in progress Code(s): S42.292A - OTH DISP FX OF UPPER END OF LEFT HUMERUS, INIT FOR CLOS FX Qualifiers: Encounter type: initial encounter Qualified Code(s): S42.292A - Other displaced fracture of upper end of left humerus, initial encounter for closed fracture (2) CHF (congestive heart failure) Assessment/Plan: euvolimic compensated to continue current regime Code(s): I50.9 - HEART FAILURE, UNSPECIFIED Qualifiers: Congestive heart failure type: unspecified congestive heart failure type Congestive heart failure chronicity: acute on chronic Qualified Code(s ): I50.9 - Heart failure, unspecified (3) Diabetes Assessment/Plan: on basal insuling and Coverage ada diet follow BS Code(s): E11.9 - TYPE 2 DIABETES MELLITUS WITHOUT COMPLICATIONS (4) HTN (hypertension) Assessment/Plan: has remained stable medications continued Code(s): I10 - ESSENTIAL (PRIMARY) HYPERTENSION Qualifiers: Hypertension type: unspecified Qualified Code(s): I10 - Essential ( primary) hypertension
--- NOTE | 2017-03-14 09:24 | DS ---
Physical Examination Vital Signs: Vital Signs Temperature 98.6 F 03/14/17 05:40 Pulse Rate 60 03/14/17 05:40 Respiratory Rate 20 03/14/17 05:40 Blood Pressure 116/84 03/14/17 05:40 O2 Sat by Pulse Oximetry (%) 95 03/13/17 20:11 Findings/Remarks: 86F with CAD / afib on coumadin / CHF / CVA who was discharged from [facility] day prior to admission , was in stable condition, fell from her bed and resulted in left humeral head fx. She was transfered to ER same am. She presented to ED after a unwitnessed fall from her bed on her left shoulder (about a meter high) and hitting her head on the carpet, her shoulder impacting the floor. She was unable to sit up without feeling extreme pain radiating through her left shoulder. [facility]. Patient denied LOC, dizziness, change in mental status., n/v/d, change in hearing or vision. She states I "rolled out of bed" Constitutional: Yes: Well Nourished, No Distress, Anxious Eyes: Yes: Conjunctiva Clear, EOM Intact HENT: Yes: Atraumatic, Normocephalic Neck: Yes: Supple, Trachea Midline Cardiovascular: Yes: Pulse Irregular Respiratory: Yes: CTA Bilaterally Gastrointestinal: Yes: Normal Bowel Sounds, Soft, Abdomen, Obese ...Rectal Exam: Yes: Deferred Renal/: Yes: WNL Breast(s): Yes: WNL Musculoskeletal: Yes: Other (mid upper arm hematoma / arm swelling but soft able to move hands with good ROM / good cap refill) Extremities: No: Calf Tenderness, Cool, Cyanosis, Deformity, Delayed Capillary Refill Edema: No Peripheral Pulses WNL: Yes Integumentary: Yes: Bruising (left upper arm) Neurological: Yes: Alert, Oriented Labs: CBC, BMP 03/14/17 06:05 03/14/17 06:05 Discharge Summary Reason For Visit: CLOSED FRACTURE OF HEAD OF LEFT HUMERUS Current Active Problems Fracture of humeral head, left, closed (Acute) Hospital Course: patient admitted >>examined by ortho No surgical intervention will need splint and additional care for ADL arrangements for fdc in progress Condition: Guarded - Instructions Referrals: Helder Patel MD [Staff Physician] - Disposition: [facility] - Home Medications Comprehensive Discharge Medication List: Ambulatory Orders Timolol 0.25% [Timoptic 0.25%] 5 ml OU DAILY 12/12/15 Insulin Sliding Scale [Novolog Vial Sliding Scale -] 1 vial SQ ACHS units 11/22 Acetaminophen [Tylenol .Extra-Strength -] 1,000 mg PO Q6H PRN #0 tablet Furosemide [Lasix -] 80 mg PO DAILY #30 tablet 03/12/17 Labetalol HCl [Normodyne -] 200 mg PO TID #90 tablet 03/12/17 Magnesium Oxide [Mag-Ox -] 400 mg PO BID tablet 03/12/17 Valsartan [Diovan] 320 mg PO DAILY #30 tablet 03/12/17 Insulin (Levemir) [Levemir Vial] 15 units SQ BID 03/13/17 Metformin HCl [Glucophage -] 1,000 mg PO BID 03/13/17 Verapamil HCl [Verelan] 240 mg PO BID 03/13/17 Warfarin Na [Coumadin -] 2 mg PO DAILY 03/13/17
[2017-03-14 10:05] LABS: URINE APPEARANCE SLCLOUDY; URINE BILIRUBIN NEGATIVE (NEGATIVE); URINE BLOOD NEGATIVE (NEGATIVE); URINE COLOR COLORLESS; URINE GLUCOSE (UA) 1+ (NEGATIVE); URINE KETONE NEGATIVE (NEGATIVE); URINE LEUK ESTERASE NEGATIVE (NEGATIVE); URINE NITRITE NEGATIVE (NEGATIVE); URINE PROTEIN NEGATIVE (NEGATIVE); URINE UROBILINOGEN NEGATIVE mg/dL (0.2-1.0)
[2017-03-14] MEDS ORDERED: PT OWN MED DRAWER 7, Y5N ONE (10:25)
[2017-03-14] MEDS: FUROSEMIDE 40 MG TABLET (FP) PO SCH (10:31)
[2017-03-14] MEDS: VALSARTAN 160 MG TABLET (UD) PO SCH (10:32)
[2017-03-14] MEDS: TIMOLOL 0.25% OPHTHALMIC SOL 5 ML BOTTLE OU SCH (10:33)
[2017-03-14] MEDS: VERAPAMIL HCL 120 MG TABLET PO SCH (10:33)
[2017-03-14] MEDS ORDERED: INSULIN (NOVOLOG) ASPART 100 UNITS/ML 10ML VIAL ONE (11:50)
[2017-03-14 14:46] VITALS: BP 111/58; PULSE 71; TEMP 98.5
== END 2017-03-14 17:58 ==
LOC: JER 05:15 → INTOOBSV 06:53 → JERBED 06:53 → J6S 08:31
PROVIDERS: ADMIT Family Medicine; ATTEND Family Medicine
PROC: 3E033VG Introduction of Insulin into Peripheral Vein, Percutaneous Approach (ICD-10-PCS; principal; 2017-03-13)
DX: S42.292A Other displaced fracture of upper end of left humerus, initial encounter for closed fracture (principal); W06.XXXA Fall from bed, initial encounter; Y93.89 Activity, other specified; Y92.122 Bedroom in nursing home as the place of occurrence of the external cause; I10 Essential (primary) hypertension; I48.91 Unspecified atrial fibrillation; I50.9 Heart failure, unspecified; I25.10 Atherosclerotic heart disease of native coronary artery without angina pectoris; E11.9 Type 2 diabetes mellitus without complications; E78.5 Hyperlipidemia, unspecified; K76.0 Fatty (change of) liver, not elsewhere classified; Z86.73 Personal history of transient ischemic attack (TIA), and cerebral infarction without residual deficits; Z79.4 Long term (current) use of insulin; Z79.84 Long term (current) use of oral hypoglycemic drugs; Z79.01 Long term (current) use of anticoagulants; Z88.0 Allergy status to penicillin; H40.9 Unspecified glaucoma; F41.9 Anxiety disorder, unspecified
CPT/HCPCS: 36415; 70450-TC; 72125-TC; 73030-TC-LT; 73060-TC-LT; 80048; 80053; 81003; 85025; 85610; 85730; 93005; 93010; 97116-GP; 97162-GP; 99285-25; G0378

== ENCOUNTER → 2017-03-18 | Emergency (ER) | payer OTHER, BC ==
[~2017-03-18] MED LIST: SODIUM BICARBONATE 8.4% - 50 ML ONE
--- NOTE | 2017-03-18 20:10 | PDOC ---
History of Present Illness - General History Source: EMS Exam Limitations: Intubated, Unresponsive, Other (cardiac arrest ) - History of Present Illness Initial Comments: 03/18/17 20:30 The patient is a 86 year old female, from [facility], with a significant past medical history of AFib, CHF, HTN, and diabetes who presents to the ED, via EMS , s/p cardiac arrest. As per EMS, the patient was defibrillated once a [place] and intubated in field. Elvin Apparatus was placed for cardiac compressions and 3 epi and 1 bicarb were given, with normal finger stick. Patient was transported to [place] where, as per EMS, patient did not regain any spontaneous vital signs. History is limited secondary to patient being unresponsive. <Ambrose Gregory - Last Filed: 03/18/17 20:30> - General History Source: EMS <Nikos Diaz - Last Filed: 03/18/17 20:58> - General Stated Complaint: CARDIAC ARREST Time Seen by Provider: 03/18/17 20:10 Past History <Ambrose Gregory - Last Filed: 03/18/17 20:30> - Past Medical History Anemia: No Asthma: No Cancer: No Cardiac Disorders: Yes (atrial fibrillation, ASHD) CVA: Yes (03/2015) COPD: No CHF: Yes Dementia: No Diabetes: Yes GI Disorders: Yes (Diverticulosis, colon polyp, Pancreatic neoplasm) Disorders: No HTN: Yes Hypercholesterolemia: Yes Liver Disease: Yes (Fatty Liver) Suicide Attempt (Hx): No Seizures: No Thyroid Disease: No - Surgical History Appendectomy: No Cardiac Surgery: No Cholecystectomy: No Lung Surgery: No Neurologic Surgery: No Orthopedic Surgery: No - Immunization History Immunization Up to Date: No - Psycho/Social/Smoking Cessation Hx Anxiety: No Suicidal Ideation: No Smoking History: Never smoked Have you smoked in the past 12 months: No Number of Cigarettes Smoked Daily: 0 Hx Alcohol Use: No Drug/Substance Use Hx: No Substance Use Type: None Hx Substance Use Treatment: No <Nikos Diaz - Last Filed: 03/18/17 20:58> - Past Medical History Allergies/Adverse Reactions: Allergies Allergy/AdvReac Type Severity Reaction Status Date / Time clindamycin Allergy Verified 03/18/17 20:10 Penicillins AdvReac Verified 03/18/17 20:10 Home Medications: Ambulatory Orders Timolol 0.25% [Timoptic 0.25%] 5 ml OU DAILY 12/12/15 Insulin Sliding Scale [Novolog Vial Sliding Scale -] 1 vial SQ ACHS units 11/22 Acetaminophen [Tylenol .Extra-Strength -] 1,000 mg PO Q6H PRN #0 tablet Furosemide [Lasix -] 80 mg PO DAILY #30 tablet 03/12/17 Labetalol HCl [Normodyne -] 200 mg PO TID #90 tablet 03/12/17 Magnesium Oxide [Mag-Ox -] 400 mg PO BID tablet 03/12/17 Valsartan [Diovan] 320 mg PO DAILY #30 tablet 03/12/17 Metformin HCl [Glucophage -] 1,000 mg PO BID 03/13/17 Warfarin Na [Coumadin -] 2 mg PO DAILY 03/13/17 Acetaminophen [Tylenol .Regular Strength -] 650 mg PO Q6H PRN #0 tablet Insulin (Levemir) [Levemir Vial] 15 units SQ BID@0700,2200 ml 03/14/17 Verapamil HCl 240 mg PO BID tablet 03/14/17 Review of Systems - Review of Systems Able to Perform ROS?: No Comments:: 03/18/17 20:31 Unable to obtain ROS secondary to patient being unresponsive. <Ambrose Gregory - Last Filed: 03/18/17 20:30> *Physical Exam - Vital Signs Last Vital Signs Temp Pulse Resp BP Pulse Ox 0 L 0 L 000/00 0 L 03/18/17 20:10 03/18/17 20:10 03/18/17 20:10 03/18/17 20:10 - Physical Exam Comments: 03/18/17 20:31 HEENT: Pupils fixed and dilated CARDIOVASCULAR: Unresponsive Cardiac Activity PULMONARY: Unresponsive breath sounds ABDOMEN: Soft, Obese EXTREMITIES: No gross deformities. SKIN: Pallor NEUROLOGICAL: No spontaneous motor function No spontaneous cardiac activity seen on cardiac probe. The patient was pronounced by Dr. Diaz at 20:06 <Ambrose Gregory - Last Filed: 03/18/17 20:30> Medical Decision Making - Medical Decision Making 03/18/17 20:[address] Villa at 20:16 <Ambrose Gregory - Last Filed: 03/18/17 20:30> - Medical Decision Making 03/18/17 20:37 Dr. Diaz: The scribe's documentation has been prepared under my direction and personally reviewed by me in its entirery. I confirm that the note above accurately reflects all work, treatment, procedures, and medical decision making performed by me. Spoke to Pt daughter Lisa García. She is aware that Pt . Pt pcp Dr. Camacho Elizondo aware as well. Spoke to [facility]. Case not accepted by [facility]. # [id number]. <Nikos Diaz - Last Filed: 03/18/17 20:58> *DC/Admit/Observation/Transfer <Ambrose Gregory - Last Filed: 03/18/17 20:30> - Discharge Dispostion Admit: No <Nikos Diaz - Last Filed: 03/18/17 20:58> Diagnosis at time of Disposition: Cardiac arrest - Discharge Dispostion Disposition: Condition at time of disposition: - Patient Instructions Printed Discharge Instructions: Cardiac Arrest
[2017-03-18 20:17] VITALS: BP 000/00; PULSE 0; BMI 31.4
== END | disposition expired ==
LOC: JER 20:01
DX: I46.9 Cardiac arrest, cause unspecified (principal); I10 Essential (primary) hypertension; I50.9 Heart failure, unspecified; I48.91 Unspecified atrial fibrillation; I25.10 Atherosclerotic heart disease of native coronary artery without angina pectoris; E11.9 Type 2 diabetes mellitus without complications
CPT/HCPCS: 99283-25